=== PATIENT | female | born 1940 | race Caucasian/White ===

== ENCOUNTER → 2016-08-22 | Outpatient (CLI) | payer BC ==
[~2016-08-22] MED LIST: ASPI81TA28 PO; ATEN50TA8 PO; AZEL0.056 NAE; CALC-16 PO; CALC-338 PO; FEXO1TAB49 PO; GLUCTAB18 PO; LEVO100T PO; LEVO88TA PO; LIRA18IN SQ; METF-383 PO; METF500T5 PO; MULT-506 PO; SIMV20TA2 PO
[2016-08-22 11:21] LABS: ALT/SGPT 37 U/L (12-78); AST/SGOT 22 U/L (15-37); BLOOD UREA NITROGEN 16 mg/dl (7-18); BUN/CREATININE RATIO 16.6 (10-20); CARBON DIOXIDE 31 mmol/L (21-32); CHLORIDE 102 mmol/L (98-107); CHOLESTEROL 158 mg/dl (0-200); CREATININE 0.96 mg/dl (0.60-1.20); GLUCOSE 106 mg/dl (70-99); POTASSIUM 4.1 mmol/L (3.5-5.1); SODIUM 140 mmol/L (136-145); TRIGLYCERIDES 152 mg/dl (0-150); VERY LOW DENSITY LIPOPROT CALC 30 mg/dl
[2016-08-22 11:24] LABS: ESTIMATED AVERAGE GLUCOSE 134 mg/dl; HA1C FLAG Normal (Normal)
[2016-08-22 11:32] LABS: CHOLESTEROL/HDL RATIO 2.5; HDL CHOLESTEROL 63 mg/dl; LDL CHOLESTEROL CALCULATED 65 mg/dl
[2016-08-22 11:36] LABS: RATIO 6.2 mcg/mg (0-30.0)
[2016-08-22 11:44] LABS: CALCIUM 10.1 mg/dl (8.5-10.1)
== END | disposition home or self-care (01) ==
LOC: C.LABBC 08:40
PROVIDERS: ATTEND Internal Medicine
DX: E11.49 Type 2 diabetes mellitus with other diabetic neurological complication (principal); E78.00 Pure hypercholesterolemia, unspecified; I10 Essential (primary) hypertension; E03.9 Hypothyroidism, unspecified

== ENCOUNTER → 2016-10-09 | Outpatient (CLI) | payer BC ==
--- NOTE | 2016-10-09 15:18 | MAMMOGRAPHY REPORT ---
BILATERAL DIGITAL SCREENING MAMMOGRAM WITH CAD: 10/09/2016 CLINICAL HISTORY: Routine screening. Patient has no complaints. TECHNIQUE: Bilateral CC and MLO views were obtained. Current study was also evaluated with a Compute r Aided Detection (CAD) system. COMPARISON: Comparison is made to exams dated: 10/08/2015 mammogram, 10/06/2014 mammogram, 09/04/2013 ma mmogram, 09/10/2012 mammogram, 08/29/2012 mammogram, and 08/29/2011 mammogram - [facility]. BREAST COMPOSITION: The tissue of both breasts is heterogeneously dense, which may obscure small mas ses. FINDINGS: There are a few benign round calcifications in the breasts. Stable grouping of faint punct ate microcalcifications in the posterior left breast, along the posterior nipple line on the MLO view . No new suspicious mass, architectural distortion or cluster of microcalcifications is seen. IMPRESSION: ACR BI-RADS CATEGORY 1: NEGATIVE There is no mammographic evidence of malignancy. A 1 year screening mammogram is recommended. The pa tient will receive written notification of the results. Approximately 10% of breast cancers are not detected with mammography. A negative mammographic report should not delay biopsy if a clinically suggestive mass is present. Emma Broussard M.D. ay/:10/09/2016 13:32:11 External Relations Director: Kamala DOS SANTOS([place]erva)(Carter)([place]), [facility] letter sent: Normal 1/2 BI-RADS Code: ACR BI-RADS Category 1: Negative
== END | disposition home or self-care (01) ==
LOC: C.MAMM 10:30
PROVIDERS: ATTEND Obstetrics & Gynecology
DX: Z12.31 Encounter for screening mammogram for malignant neoplasm of breast (principal)

== ENCOUNTER 2016-11-24 14:19 | Emergency (ER) | payer BC ==
[~2016-11-24] VITALS: Ht 170.2 cm; Wt 82.0 kg
[~2016-11-24 14:19] MED LIST changes: -ASPI81TA28 PO; -AZEL0.056 NAE; -CALC-16 PO; -LEVO100T PO; -METF500T5 PO
[2016-11-24 14:24] VITALS: TEMP 36.7; Ht 170.2 cm; Wt 82.0 kg
--- NOTE | 2016-11-24 14:51 | EMERGENCY ROOM VISIT NOTE ---
ED Visit Note First contact with patient: 14:28 CHIEF COMPLAINT: Ankle pain HISTORY OF PRESENT ILLNESS: This 76-year-old female patient presents to the emergency department ambulatory after sustaining an injury to the left ankle with a twisting, inversion motion when she was walking through a parking lot and stepped in a hole, twisted her left ankle and fell onto her right knee. Complains of moderate swelling and pain. The patient complains of pain along the outside of the ankle. The patient does not have pain of the foot. The patient rates the pain as sharp and 8/10. There was no audible pop. The patient is not able to bear weight on the foot. Constant pain, worse with movement, weight bearing, and the dependent position. She has a superficial abrasion, swelling and tenderness to the right knee. There is no pain in the left knee. The patient is able to move their toes. No numbness or weakness of the foot, no laceration. The patient has not had a previous injury to this ankle. The patient has taken nothing for the pain. The patient denies any other injury. REVIEW OF SYSTEMS: A 6 system review of systems was completed with positives and pertinent negatives listed in the HPI. ALLERGIES: Magnesium salicylate, sulfites MEDICATIONS: See nursing notes PMH: Hypertension, hyperlipidemia, hypothyroidism, type 2 diabetes SOCIAL HISTORY: The patient lives locally. PHYSICAL EXAM: Vital Signs: Reviewed Nurse's notes, vital signs stable. GENERAL : This is a 76-year-old female, no acute distress, but appears in pain, well- developed, well-nourished. MENTAL STATUS: Alert, oriented to person place and time, and cooperative. MUSCULOSKELETAL: The left ankle is swollen and tender over the lateral malleolus, but the skin is intact and there is no ligamentous instability. There is no fifth metatarsal tenderness. There is no tenderness over the rest of the foot. There is no calf or tibia/fibular tenderness. There is no visual deformity. The foot and toes are warm and well-perfused. Dorsalis pedis pulse 2+. Sensation to pain and light touch is intact. Capillary refill less than 2 seconds. There is a superficial, nonbleeding abrasion, ecchymosis, tenderness and swelling to the right anterior knee. There is no obvious deformity. There is no obvious laxity. EMERGENCY DEPARTMENT COURSE: I examined the patient. X-rays of the left ankle and right knee were reviewed by myself and read by radiology and reveal avulsion fracture to the left distal fibula. A walking boot was applied to the ankle under my direction and the position was satisfactory. Neurovascular status was rechecked and intact. The patient will not tolerate crutches. We do not have any walker to give the patient. I did give her prescription. It was faxed to [facility]. She should contact orthopedics first thing Sunday morning for a follow-up appointment. She should return with worsening symptoms. The patient was discharged home in good condition. LEFT ANKLE 3 VIEWS HISTORY: fall, left ankle pain COMPARISON: None. FINDINGS: Tiny avulsion fracture at the distal tip of the lateral malleolus. No dislocation. Lateral soft tissue swelling. No radiopaque foreign bodies. IMPRESSION: Tiny avulsion fracture at the distal tip of the lateral malleolus. RIGHT KNEE 3 VIEWS CLINICAL HISTORY: 76 years-old Female presenting with fall, right knee pain Right. TECHNIQUE: Frontal, lateral, and sunrise views of the right knee were obtained. COMPARISON: None. FINDINGS: No acute fracture or malalignment. Degenerative changes of the medial and lateral compartments more pronounced than minimal degenerative change at the patellofemoral compartment. Degenerative changes include osteophytosis and chondrocalcinosis. There is likely mild joint space loss in both the medial and lateral compartments. No large effusion. IMPRESSION: No acute osseous injury of the right knee. Tricompartmental degenerative change. The patient was also seen and examined by who agrees with the assessment and treatment plan. Current/Historical Medications Scheduled Aspirin (Aspirin Ec), 81 MG PO DAILY Atenolol (Tenormin), 50 MG PO DAILY Azelastine HCl (Azelastine HCl), 2 SPRAYS KWAKU QPM Calcium Citrate-Vitamin D (Calcium Citrate+D), 1 TAB PO DAILY Glucosamine-Chondroitin (Osteo Bi-Flex Regular Str), 1 TAB PO DAILY Levothyroxine Sodium (Synthroid), 100 MCG PO DAILY Liraglutide (Victoza), 1.2 MG SQ QPM Metformin Hcl Er (Glucophage Er), 1,000 MG PO BID Multivitamin (Multivitamin), 1 TAB PO DAILY Simvastatin (Zocor), 20 MG PO QPM Scheduled PRN Fexofenadine Hcl (Diana Allergy), 180 MG PO DAILY PRN for ALLERGIES Allergies Coded Allergies: Prednisone (Verified Allergy, Severe, ITCHY, RED, 11/24/16) Sulfites (Verified Allergy, Severe, RASH/REDDENED/THROAT CLOSES, 11/18/13) Codeine (Verified Allergy, Unknown, RASH, 11/24/16) Magnesium Salicylate (Unverified Allergy, Unknown, UNKNOWN, 11/18/13) POLLEN (Unverified Allergy, Unknown, SEASONAL ALLERGIES, 11/18/13) Uncoded Allergies: TREES (Allergy, Unknown, SEASONAL ALLERGIES, 11/17/13) WEEDS (Allergy, Unknown, SEASONAL ALLERGIES, 11/17/13) Vital Signs Date Time Temp Pulse Resp B/P (MAP) Pulse Ox O2 Delivery O2 Flow Rate FiO2 11/24/16 16:30 78 18 158/82 93 11/24/16 14:24 36.7 86 18 154/82 95 Room Air Departure Information Impression Primary Impression: Fracture of distal end of left fibula Additional Impression: Knee contusion Dispostion Home / Self-Care Condition GOOD Referrals Pro,Aneesh Brownlee M.D. (PCP) Teddy Ramos, DO Patient Instructions Ankle Fx, My [facility] [employer] Additional Instructions Wear the walking boot until seen by orthopedics Get the walker at the medical supply store and use to assist in ambulation Contact orthopedics first thing Sunday morning to schedule a follow-up appointment for further evaluation and management Return with any worsening symptoms Problem Qualifiers Primary Impression: Fracture of distal end of left fibula Encounter type: initial encounter Fracture type: closed Fracture morphology : other fracture Qualified Codes: S82.832A - Other fracture of upper and lower end of left fibula, initial encounter for closed fracture Additional Impression: Knee contusion Encounter type: initial encounter Laterality: right Qualified Codes: S80.01XA - Contusion of right knee, initial encounter
--- NOTE | 2016-11-24 15:10 | DIAGNOSTIC IMAGING REPORT ---
LEFT ANKLE 3 VIEWS HISTORY: fall, left ankle pain COMPARISON: None. FINDINGS: Tiny avulsion fracture at the distal tip of the lateral malleolus. No dislocation. Lateral soft tissue swelling. No radiopaque foreign bodies. IMPRESSION: Tiny avulsion fracture at the distal tip of the lateral malleolus. Electronically signed by: Tye Valdes M.D. 11/24/2016 3:09 PM Dictated Date/Time: 11/24/2016 3:08 PM
--- NOTE | 2016-11-24 15:15 | DIAGNOSTIC IMAGING REPORT ---
RIGHT KNEE 3 VIEWS CLINICAL HISTORY: 76 years-old Female presenting with fall, right knee pain Right. TECHNIQUE: Frontal, lateral, and sunrise views of the right knee were obtained. COMPARISON: None. FINDINGS: No acute fracture or malalignment. Degenerative changes of the medial and lateral compartments more pronounced than minimal degenerative change at the patellofemoral compartment. Degenerative changes include osteophytosis and chondrocalcinosis. There is likely mild joint space loss in both the medial and lateral compartments. No large effusion. IMPRESSION: No acute osseous injury of the right knee. Tricompartmental degenerative change. Electronically signed by: Osei Bowens M.D. 11/24/2016 3:14 PM Dictated Date/Time: 11/24/2016 3:12 PM
[2016-11-24] MEDS ORDERED: CALC-16 PO (15:23)
[2016-11-24] MEDS ORDERED: METF500T5 PO (15:23)
[2016-11-24] MEDS ORDERED: ASPI81TA28 PO (15:23)
[2016-11-24] MEDS ORDERED: LEVO100T PO (15:23)
[2016-11-24] MEDS ORDERED: AZEL0.056 NAE (15:23)
--- NOTE | 2016-11-24 16:25 | EMERGENCY ROOM VISIT NOTE ---
ED Visit Note First contact with patient: 14:28 HPI: Mechanical fall with left ankle and right knee pain. PE: AFVSS, NAD NC/AT RRR, no murmurs CTAB Ext: left ateral mal, swelling, ttp. right knee with minor abrasion and contusion. FROM intact. distal PMS intact. Neuro: grossly intact Plan: Xray knee negative. Xray left ankle with Tiny avulsion fracture at the distal tip of the lateral malleolus. Plan boot. Ortho f/u. I reviewed the patient's past medical history, medications, and visit nursing notes. I discussed the case with the physician neurology physician assistant, examined the patient, and agree with the findings and plan as documented in the physician assistants note.
[2016-11-24 16:30] VITALS: BP 158/82; PULSE 78; O2SAT 93
== END 2016-11-24 16:31 | disposition home or self-care (01) ==
LOC: C.EDB 14:21 → C.EDD 16:31
DX: S82.62XA Displaced fracture of lateral malleolus of left fibula, initial encounter for closed fracture (principal); S80.01XA Contusion of right knee, initial encounter; W01.0XXA Fall on same level from slipping, tripping and stumbling without subsequent striking against object, initial encounter; Y92.481 Parking lot as the place of occurrence of the external cause; S80.211A Abrasion, right knee, initial encounter; I10 Essential (primary) hypertension; E78.5 Hyperlipidemia, unspecified; E03.9 Hypothyroidism, unspecified; E11.9 Type 2 diabetes mellitus without complications; Z79.82 Long term (current) use of aspirin; Z79.84 Long term (current) use of oral hypoglycemic drugs

== ENCOUNTER → 2016-12-18 | Outpatient (CLI) | payer BC ==
[~2016-12-18] MED LIST changes: +ASPI81TA28 PO; +AZEL0.056 NAE; +CALC-16 PO; -CALC-338 PO; +LEVO100T PO; -LEVO88TA PO; -METF-383 PO; +METF500T5 PO
--- NOTE | 2016-12-18 16:03 | DIAGNOSTIC IMAGING REPORT ---
LEFT ANKLE 3 VIEWS HISTORY: FRACTURED FIBULA COMPARISON: Left ankle 11/24/2016. FINDINGS: No change in the tiny avulsion fracture at the distal tip of the left fibula. There is diffuse soft tissue swelling which is slightly improved. No dislocation. The distal tibia is intact. Small plantar and posterior calcaneal spurs. No radiopaque foreign bodies. IMPRESSION: No change in the tiny avulsion fracture at the distal tip of the left fibula. Electronically signed by: Tye Valdes M.D. 12/18/2016 4:02 PM Dictated Date/Time: 12/18/2016 4:00 PM
== END | disposition home or self-care (01) ==
LOC: C.RAD1850 15:31
PROVIDERS: ATTEND Internal Medicine
DX: S82.832A Other fracture of upper and lower end of left fibula, initial encounter for closed fracture (principal); X58.XXXA Exposure to other specified factors, initial encounter

== ENCOUNTER → 2017-02-14 | Outpatient (CLI) | payer BC ==
[2017-02-14 11:29] LABS: ALT/SGPT 37 U/L (12-78); AST/SGOT 22 U/L (15-37); BLOOD UREA NITROGEN 13 mg/dl (7-18); BUN/CREATININE RATIO 15.3 (10-20); CALCIUM 9.6 mg/dl (8.5-10.1); CARBON DIOXIDE 30 mmol/L (21-32); CHLORIDE 103 mmol/L (98-107); CREATININE 0.83 mg/dl (0.60-1.20); ESTIMATED AVERAGE GLUCOSE 137 mg/dl; GLUCOSE 103 mg/dl (70-99); HA1C FLAG Normal (Normal); POTASSIUM 3.8 mmol/L (3.5-5.1); SODIUM 138 mmol/L (136-145)
[2017-02-14 11:40] LABS: CHOLESTEROL 150 mg/dl (0-200); CHOLESTEROL/HDL RATIO 2.5; HDL CHOLESTEROL 60 mg/dl; LDL CHOLESTEROL CALCULATED 47 mg/dl; TRIGLYCERIDES 217 mg/dl (0-150); VERY LOW DENSITY LIPOPROT CALC 43 mg/dl
== END | disposition home or self-care (01) ==
LOC: C.LABBC 08:12
PROVIDERS: ATTEND Internal Medicine
DX: E78.00 Pure hypercholesterolemia, unspecified (principal); E03.9 Hypothyroidism, unspecified; E11.9 Type 2 diabetes mellitus without complications

== ENCOUNTER → 2017-02-27 | Outpatient (CLI) | payer BC | END | disposition home or self-care (01) | LOC: C.MAMM 08:37 | PROVIDERS: ATTEND Internal Medicine | DX: M50.30 Other cervical disc degeneration, unspecified cervical region (principal); S82.409A Unspecified fracture of shaft of unspecified fibula, initial encounter for closed fracture; X58.XXXA Exposure to other specified factors, initial encounter ==

== ENCOUNTER → 2017-08-14 | Outpatient (CLI) | payer BC ==
[~2017-08-14] VITALS: Ht 167.6 cm; Wt 86.4 kg
[2017-08-14 12:56] VITALS: BP 144/81; PULSE 84; Ht 167.6 cm; Wt 86.4 kg
== END | disposition home or self-care (01) ==
LOC: C.NEUR 11:57
PROVIDERS: ATTEND Internal Medicine Pulmonary Disease
DX: R06.83 Snoring (principal); R53.83 Other fatigue; G47.00 Insomnia, unspecified; M25.551 Pain in right hip; R20.8 Other disturbances of skin sensation; J30.1 Allergic rhinitis due to pollen

== ENCOUNTER → 2017-08-17 | Outpatient (CLI) | payer BC ==
[2017-08-17 10:50] LABS: ALT/SGPT 55 U/L (12-78); AST/SGOT 40 U/L (15-37); BLOOD UREA NITROGEN 15 mg/dl (7-18); CARBON DIOXIDE 29 mmol/L (21-32); CHOLESTEROL 225 mg/dl (0-200); CREATININE 0.98 mg/dl (0.60-1.20); GLUCOSE 97 mg/dl (70-99); POTASSIUM 3.9 mmol/L (3.5-5.1); SODIUM 138 mmol/L (136-145)
[2017-08-17 10:59] LABS: CREATININE RANDOM URINE 63.9 mg/dl
[2017-08-17 11:00] LABS: LDL CHOLESTEROL CALCULATED 119 mg/dl
[2017-08-17 11:47] LABS: HEMOGLOBIN A1C 6.4 % (4.5-5.6)
== END | disposition home or self-care (01) ==
LOC: C.LABBC 08:07
PROVIDERS: ATTEND Internal Medicine
DX: E11.49 Type 2 diabetes mellitus with other diabetic neurological complication (principal); E03.9 Hypothyroidism, unspecified; E78.00 Pure hypercholesterolemia, unspecified

== ENCOUNTER → 2017-08-28 | Outpatient (CLI) | payer BC ==
--- NOTE | 2017-08-29 05:46 | PAP/PSG TECHNICIAN REPORT ---
[facility] [employer] Polysomnogram Report Study name: None Report date: 08/29/2017 Study date: 08/28/2017 Referring Physician: Fran Van M.D. Name: MALLORIE JOIE LUKE Interpreting Physician: Fran Van M.D. Date of : 1940 [employer] Driver: MEKA Rosas. Sex: Female Age: 77 StudyType: PSG Weight: 182 lbs Height: 77 years, Height 5' 7" Neck Circum:15.5inches BMI: 28.5 Medications: ASA 81mg, Atenolol 50mg, Citracal, Colchicine 0.6mg, Levothyroxine 125mcg, Metformin 500mg, Multi Vitamin, Simvastatin 20mg, Victoza 18mg/3ml Patient History Study started on room air with no ETCO2 monitoring in room #6. 77 yr old female here tonight for a diagnostic psg. She complains of EDS, snoring ,leg pain and fragmented sleep. She wakes every two hours to use the restroom. ESS=17/24. Neck circ=15.5inches. Parameters Monitored NPSG: E1-M2, E2-M1, Fp1-M2, Fp2-M1, F3-M2, F4-M2, F4-M1, C3-M2, C4-M2, C4-M1, O1-M2, O2-M2, O2-M1, T3-M2, T4-M1, P3-M2, P4-M1, CHIN1, CHIN2, HR, EKG, Legs, PFLOW, SNOR, FLOW, CFLOW, Tidal Volume, THOR, ABDO, SpO2, PLTH, CPRESS, ETCO2 Wave, ETCO2, pH Sleep Architecture Sleep Stages Time at Lights Off 9:41:45 PM STAGES Time (min.) TST (%) Time at Lights On 5:15:15 AM Wake 290.5 -- Total Recording Time (TRT) 453.50 min. N1 61.0 37 Total Sleep Period (TSP) 445.0 min. N2 48.0 29 Total Sleep Time (TST) 163.0min. N3 54.0 33 Awake Time 290.5 min. REM 0.0 0 Wake after Sleep Onset 283.5 min. Sleep Efficiency (SE) 36 % Sleep Onset Latency (BEBETO) 7.0 min. Number of Stage 1 Shifts None Awakenings 114 Stage Changes 275 Number of REM periods N/A REM 0.0 0 REM Latency NONE min. NREM 163.0 100 Body Position Analysis Supine Right Left Side Prone Vertical Total Sleep Time (min.) 287.5 15.5 30.5 46.03 0.0 0.0 Total Sleep Time (%) 72% 10% 19% 28 0% N/A% Total Sleep Time REM (min.) 0.0 0.0 0.0 None 0.0 0.0 Total Sleep Time NREM (min.) 117.0 15.5 30.5 None 0.0 0.0 Intermittent Wake (min.) 170.5 77.4 42.5 None 0.0 0.0 Total Sleep Period (%) 63% None None None None None Arousals Myoclonus (PLM) * Events Count Index Events Count Index Spontaneous 26 10 Events Awake (PLMW) 608 125.6 Respiratory 68 36.1 Events Asleep w/ Arousal (PLMA) 2 0.7 PLM 2 1 Events Asleep w/o Arousal (PLMS) 100 36.8 Snoring 0 0 Total Asleep 102 37.5 Total 96 35 Total 710 94 Respiratory Analysis * CA OA MA CH H RERA Total Count 75 6 2 0 41 0 124 Index 27.6 2.2 0.7 0 15.1 0 45.6 Mean Duration 23.5 26.1 10.9 0.00 25.8 0.0 24.2 Longest Duration 35.9 31.6 21.5 0.00 21.5 0.0 51.6 Respiratory Event Summary Total Supine ~Supine Right Left Prone REM NREM Apneas Count 83 59 24 14 10 N/A N/A 83 Index 30.6 30 31 54.1 19.7 N/A N/A 31 Hypopneas (4% Desat) Count 41 33 8 5 3 N/A N/A 41 Index 15.1 16.9 10 19.3 5.9 N/A N/A 15.1 Apneas & All Hypopneas Count 124 92 32 19 13 N/A N/A 124 Index 45.6 47 42 73 26 N/A N/A 45.6 Respiratory Events (Quality Specialist+All Hyp+RERA) Count 124 92 32 19 13 N/A N/A 124 Index 45.6 47 42 73.5 25.6 N/A N/A 45.6 Respiratory Related Arousal Count 68 92 23 14 9 N/A N/A 98 Index 36.1 38 30 54 18 N/A N/A 36 Snoring Analysis Supine Right Left Prone REM NREM Total Snore duration 0.5 min Snores count 7 3 2 N/A N/A 12 12 Snore mean duration 2.4 Sec Snores index 4 12 4 N/A N/A 4.4 4.4 TST with snoring (%) 0.3% Desaturation Event Summary: Minimum %SpO2 Event Count Mean/Min/Max Duration(sec.) Desaturation Index % Time In Bed > 90 251 29.2 / 8.5 / 60.0 63.4 53.6 86 - 90 73 24.6 / 8.5 / 40.3 30.2 32.7 81 - 85 1 14.3 / 14.3 / 14.3 1.1 12.4 76 - 80 0 N/A 0.0 1.3 71 - 75 0 N/A 0.0 0.0 66 - 70 0 N/A 0.0 0.0 61 - 65 0 N/A 0.0 0.0 56 - 60 0 N/A 0.0 0.0 51 - 55 0 N/A 0.0 0.0 < 50 0 N/A 0.0 0.0 Total REM NREM Awake <50% 0.0 min. 0.0 min. 0.0 min. 0.0 min. 51 - 60% 0.0 min. 0.0 min. 0.0 min. 0.0 min. 61 - 70% 0.0 min. 0.0 min. 0.0 min. 0.0 min. 71 - 80% 6.0 min. 0.0 min. 1.9 min. 4.1 min. 81 - 90% 199.9 min. 0.0 min. 110.7 min. 89.2 min. 91 - 100% 237.5 min. 0.0 min. 50.4 min. 187.0 min. Average 90 0 89 91 Minimum SpO2 78 N/A 78 78 Desaturation Event Index 36.8 0.0 52.6 30.4 # Desat. Events below 89% 252 N/A 134 118 Time(%) with Saturation below 89% 32.1 0.0 17.8 14.4 Time(min.) with Saturation below 89% 142.5 0.0 78.8 63.7 Time (mins) REM (mins) NREM (mins) % of TST SpO2 Below 90% 136 N/A N136 58.3 SpO2 Below 88% 47 0 0 42 Heart Rate Analysis Min (bpm) Max (bpm) Average (bpm) Awake 39 127 73 NREM 57 85 71 REM N/A N/A N/A Overall 57 85 71 Supplemental O2 Values Minimum O2 level: None Value Start Time End Time [employer] Comments Mr. Cole slept in the right, left and supine positions. No cardiac arrhythmia noted. Some leg movements were noted. No bruxism noted. Snoring was noted and scored as a 1 on a scale of 1 through 5. (0=no snoring, 5=snoring loud enough to be heard through a closed door or down the gunn way) She awoke to use the restroom 1 time during the night. She stated that this was a normal night for her. The final report will be interpreted and signed by a sleep physician. The completed physician report will then be placed in the patient medical record. Therapy (cm H2O) 0 TIB (min.) 453.5 TST (min.) 163.0 Sleep Onset (min.) 7.0 REM Onset From Sleep (min.) NONE Sleep Efficiency % 36 Wakefulness (%) 64 Wakefulness (min.) 290.5 NREM 1 (%) 37 NREM 1 (min.) 61.0 NREM 2 (%) 29 NREM 2 (min.) 48.0 NREM 3 (%) 33 NREM 3 (min.) 54.0 REM (%) 0 REM (min.) 0.0 # Arousals 96 Arousal Index 35 # Snore 12 Snore Index 4.4 AHI 45.6 AHI Supine 47 AHI Non-Supine 42 NREM AHI 45.6 REM AHI N/A RDI 45.6 # Obstructive Apnea 6 # Central Apnea 75 # Mixed Apnea 2 # Hypopneas 41 RERAs 0 Total Respiratory Events 160 Time Below SpO2 89% (min.) 78.8 Mean NREM SpO2 (%) 89 Mean REM SpO2 (%) N/A Mean Sleep SpO2 (%) 89 Min NREM SpO2 (%) 78 Min REM SpO2 (%) N/A Position Supine (min.) 287.5 Position Non-supine (min.) 46.0 LM Index Sleep 37.5 LM Index NREM 37.5 LM Index REM N/A Mean Heart Rate (bpm) 71 Min Heart Rate (bpm) 57
--- NOTE | 2017-08-31 07:56 | POLYSOMNOGRAPH REPORT ---
CLINICAL DATA: A 77-year-old female with BMI of 28.5 with complaints of excessive daytime sleepiness, snoring, leg pain, and fragmented sleep. She wakes every 2 hours at night. Her [place] sleepiness score is 17/24. SLEEP ARCHITECTURE: Total sleep period was 445 minutes. Total sleep time was 163 minutes, all non-REM sleep. Sleep latency was 7 minutes. REM was not achieved. Sleep efficiency was severely reduced at 36%. Wake after sleep onset was markedly elevated at 283.5 minutes. Sleep consisted of stage N1 37%, stage N2 29%, and stage N3 33%. AROUSAL DATA: 96 arousals were recorded for an index of 35 per hour. 68 were due to respiratory events. PLM DATA: 102 limb movements during sleep were noted for an index of 37.5 per hour with arousal index of 0.7 per hour. RESPIRATORY DATA: Severe sleep apnea was documented. The AHI was 45.6. There were 75 central, 6 obstructive, and 2 mixed apneic episodes. The longest apneic episode was 35.9 seconds. There were 41 hypopneic episodes. The mean duration of hypopnea was 25.8 seconds. OXIMETRY DATA: Nocturnal hypoxemia was seen. Oxygen [place] was 78% during non-REM sleep. Mean saturation was 98%. Time below 88% was 47 minutes. EKG: Heart rates ranged from 57-85 beats per minute. No arrhythmias noted. CHAUFFEUR MOTORBUS'S COMMENTS: The patient slept in the right, left, and supine position. Snoring was mild, rated 1 on a scale of 1-5. IMPRESSION: Severe sleep apnea/hypopnea with a very fragmented sleep architecture. The majority of the patient's episodes were central in nature. RECOMMENDATIONS: The patient will be seen back in followup to discuss options for treatment. A trial of ASV may be needed with her central apneic episodes. [facility]
== END | disposition home or self-care (01) ==
LOC: C.NEUR 20:00
PROVIDERS: ATTEND Internal Medicine Pulmonary Disease
DX: R20.8 Other disturbances of skin sensation (principal); R53.83 Other fatigue; M25.511 Pain in right shoulder; G47.00 Insomnia, unspecified; R06.83 Snoring

== ENCOUNTER 2024-08-15 10:15 | Inpatient (IN) ==
[2024-08-15 10:53] LABS: Basophils # (auto) 0.06 K/uL (0.00-0.20); Basophils % (auto) 0.8 %; Eosinophils # (auto) 0.24 K/uL (0.00-0.50); Eosinophils % (auto) 3.3 %; Hematocrit (blood only) 40.7 % (37.0-47.0); Hemoglobin 13.9 g/dl (12.0-16.0); Immature Granulocytes # (auto) 0.01 K/uL (0.01-0.20); Immature Granulocytes % (auto) 0.1 %; Lymphocytes # (auto) 2.77 K/uL (1.20-3.40); Lymphocytes % (auto) 38.6 %; Mean Corpuscular Hemoglobin 28.8 pg (25.0-34.0); Mean Corpuscular Hgb Conc 34.2 g/dL (32.0-36.0); Mean Corpuscular Volume 84.4 fL (80.0-100.0); Mean Platelet Volume 9.6 fL (9.4-12.4); Monocytes # (auto) 0.46 K/uL (0.11-0.59); Monocytes % (auto) 6.4 %; Neutrophils # (auto) 3.64 K/uL (1.40-6.50); Neutrophils % (auto) 50.8 %; Platelet Count 218 K/uL (130-400); RDW Coefficient of Variation 12.8 % (11.5-14.5); RDW Standard Deviation 38.8 fL (36.4-46.3); Red Blood Count 4.82 M/uL (4.20-5.40); White Blood Count 7.18 K/ul (4.8-10.8)
[2024-08-15 11:12] LABS: Albumin Globulin Ratio 1.3 (0.9-2); Albumin Level 4.3 gm/dl (3.4-5.0); BUN Creatinine Ratio 11.6 (10-20); Bilirubin,Total 0.5 mg/dl (0.2-1.0); Calcium 9.6 mg/dl (8.6-10.3); Globulin 3.3 gm/dl (2.5-4.0); Magnesium 1.8 mg/dl (1.7-2.4); Total Protein 7.6 gm/dl (6.0-8.3)
[2024-08-15 11:18] LABS: Troponin I High Sensitivity 4.4 pg/ml (0-14)
[2024-08-15 11:24] LABS: Partial Thromboplastin Time 26 Seconds (21-31); Prothrombin Time 10.9 Seconds (9.0-12.0)
--- NOTE | 2024-08-15 11:26 | XRay Report ---
XR chest 1V portable CLINICAL HISTORY: weak, duncan COMPARISON STUDY: 10/30/2017 FINDINGS: There is increased cardiomegaly with mild pulmonary vascular congestion. Inspiration is sha llow. There is interval mild stranding at the left base. No pleural effusion or pneumothorax. IMPRESSION: 1. Mild CHF. 2. Atelectasis versus early pneumonia left lung base. ACT 112: Negative or not required by law. Electronically signed by: Maged Parikh M.D. 08/15/2024 11:24 AM
[2024-08-15 11:27] LABS: Thyroid Stimulating Hormone 5.72 uIu/ml (0.300-4.500)
--- NOTE | 2024-08-15 11:55 | Emergency Department Note ---
ED DC CONDITION Conditon at Discharge Condition at Discharge: Serious Impression & Plan CHB (complete heart block) ED Provider Note Provider: Rodrigo Sorenson MD CHIEF COMPLAINT: Weakness, low heart rate HISTORY OF PRESENT ILLNESS: Patient is a 83-year-old female past medical history of type 2 diabetes, hypothyroidism, hypertension presenting here today from home. States she has been well recently. This morning went to have breakfast and when training up from breakfast felt very dizzy and lightheaded but did not syncopized or fall. Sat back down. Noted her heart rate to be quite low in the 30s. Denies a history of similar. Took her Synthroid this morning but not her other medications. She is normally on atenolol. Denies recent cough or cold. Denies any active chest pain or any pain earlier today. Denies feeling significantly short of breath or having abdominal pain or nausea. May be just a little bit weak at the moment but again she is just lying here. Patient denies significant cardiac history but did have cardiac testing here several years ago. PAST MEDICAL HISTORY: As noted above MEDICATIONS: Reviewed home medications SOCIAL HISTORY: PHYSICAL EXAM: GENERAL: alert and oriented in no acute distress on stretcher Head: normocephalic and atraumatic EYES: No injection, discharge or icterus. EOMI. NECK: Trachea midline. Supple. ENT: Mucous membranes pink and moist. LUNGS: Airway patent. No retractions. Breath sounds clear HEART: Regular bradycardic rate and rhythm. No chest wall tenderness ABDOMEN: Soft and non-tender, without guarding or rebound. SKIN: Acyanotic, warm, dry, without rashes EXTREMITIES: Without swelling, tenderness or deformity NEUROLOGICAL: No focal deficits. No aphasia. No facial droop or slurred speech. EK bpm what appears to be a complete heart block. No ST segment elevation or depression or bundle branch block and QRS duration of 126. QTc 386. CONTINUOUS CARDIAC MONITORING: was ordered and showed a heart rate of 30s-40s bpm in complete heart block Patient's laboratory studies and imaging reviewed. Differential includes Infection, dehydration, metabolic abnormality, hypo/hyperglycemia, electrolyte disturbance, anemia, hypoxia, cardiac sources, intracerebral event, toxicologic, neurologic, as well as other pathologies. IMPRESSION/MEDICAL DECISION MAKING: Patient appears to be in complete heart block. She does however this time. Seem to be fairly stable and without significant symptoms while in bed here. Not hypotensive. Blood work sent without severe findings such as anemia, leukocytosis, electrolyte abnormality, troponin elevation. No evidence of ST segment elevation she denies any chest pain. Not hypoxic or medically short of breath and I do not believe she is suffering from a PE. Lyme screen is negative. Did not take her beta-amaury today and we will hold off on that given her heart block. Unsure exactly why she is experiencing complete heart block at this time. Discussed with Merle Farmer cardiology and the hospitalist will bring in here for further care and monitoring. As she stable, cardiac defibrillation pads are in place but I discussed with cardiology will hold off on other meds at this time. Patient and updated. DIAGNOSIS: Complete heart block DISPOSITION: Hospitalist will evaluate Patient was agreeable with this plan. Critical Care I have personally spent 32 minutes of critical care time in the direct management of this patient. This includes bedside care, interpretation of diagnostic studies, and testing, discussion with consultants, patient, and family members, and other required patient management activities. These 32 minutes is in excess of all separately billable procedures. Past Med/Surg History Problem List (Updated 08/15/24 @ 12:58 by Background Damiky) CHB (complete heart block) (Acute) Mild persistent asthma, uncomplicated Right hip pain Dyspareunia, female Elevated vitamin B12 level Diabetes mellitus type 2, uncontrolled Ankle pain Asthma inhalers daily/prn Degenerative cervical disc Gout Allergic rhinitis Nocturnal hypoxemia Reactive airway disease Complex sleep apnea syndrome Essential hypertension (Acute) Hypercholesterolemia (Acute) Hypothyroidism (Acute) Tachycardia (Acute) follows with Dr. Solorio Type 2 diabetes mellitus (Acute) Medical History (Updated 08/15/24 @ 12:58 by Background Daemon) Fracture of distal end of left fibula Surgical History History of colonoscopy with polypectomy (~2013) History of tooth extraction History of wisdom tooth extraction History of bilateral cataract extraction S/P dilation and curettage S/P appendectomy Family History Son Asthma Grandmother (Maternal) Breast cancer No family history of adverse response to anesthesia Aunt Breast cancer Mother Heart disease Family history of diabetes mellitus Father Liver cancer Kidney malignancy Grandmother (Paternal) No family history of adverse response to anesthesia Grandfather (Maternal) Myocardial infarction Denies family history of Ovarian cancer Prostate cancer Colorectal cancer Social History Smoking Status: Never smoker Second Hand Exposure: Yes (father smoked); Do You Dip or Chew Tobacco: No; Hx Alcohol Use: No Hx Substance Use: No Preferred Language: Mauritian Communication Ability: Effective Visual Impairment: No Limitations Hearing Ability: Normal Tobacco Wrapping Machine Tender Required: No Beliefs That Will Affect Care: None marital status: Current Living Situation: Spouse current occupational status: retired Feels Safe at Home: Yes Childhood Exposure to Second-Hand Smoke: Yes Dental Care, Regularly: Yes Physical Activity Frequency: Daily Seatbelt Use: always Sunscreen Use: Yes Assistive Devices: Cane Allergies Allergies Allergy/AdvReac Type Severity Reaction Status Date / Time prednisone Allergy Severe ITCHY, RED Verified 01/28/24 10:54 sulfite Allergy Severe RASH/REDDENED/THROAT Verified 01/28/24 10:54 CLOSES codeine Allergy Mild RASH Verified 01/28/24 10:54 monosodium glutamate Allergy Mild itchy, rash Verified 01/28/24 10:54 pollen extracts Allergy Unknown SEASONAL Verified 01/28/24 10:54 ALLERGIES TREES Allergy Unknown SEASONAL Uncoded 01/28/24 10:54 ALLERGIES WEEDS Allergy Unknown SEASONAL Uncoded 01/28/24 10:54 ALLERGIES Home Meds Home Medications Medication Instructions Recorded Confirmed calcium 315 mg (as 1 tab PO QAM 10/29/18 08/15/24 citrate)-vitamin D3 6.25 mcg (250 unit) tablet (Citracal + Vitamin D Maximum) carboxymethylcellulose sodium 0.25 2 drops ophthalmic (eye) DAILY PRN 10/29/18 08/15/24 % eye drops Dry Eye(S) fluticasone propionate 50 1 spray intranasal QPM 10/29/18 08/15/24 mcg/actuation nasal spray,suspension glucosamine-chondroitin 250 mg-200 2 tab PO QAM 10/29/18 08/15/24 mg tablet multivitamin (Daily Multi-Vitamin 1 tab PO QPM 10/29/18 08/15/24 tablet) aspirin 81 mg tablet,delayed 81 mg PO HS 02/18/19 08/15/24 release cyanocobalamin (vitamin B-12) 1,000 mcg PO QAM 02/18/19 08/15/24 1,000 mcg tablet (Vitamin B-12) budesonide-formoterol HFA 80 2 inh inhalation BID PRN sob 08/15/24 08/15/24 mcg-4.5 mcg/actuation aerosol inhaler candesartan 16 mg tablet 16 mg PO DAILY 08/15/24 08/15/24 glucagon 1 mg solution for 1 mg subcut DIRECTED PRN 08/15/24 08/15/24 injection (Glucagon Emergency Kit) Hypoglycemia levothyroxine 150 mcg tablet 100 mcg PO DAILY 08/15/24 08/15/24 semaglutide 2 mg/dose (8 mg/3 mL) 2 mg subcut WK 08/15/24 08/15/24 subcutaneous pen injector (Ozempic) Previous Rx's Medication Instructions Recorded colchicine 0.6 mg tablet 0.6 mg PO BID PRN gout flare up 09/22/22 #90 tabs atenolol 50 mg tablet 50 mg PO QAM #90 tabs 02/27/23 simvastatin 20 mg tablet 20 mg PO QPM #90 tabs 02/27/23 albuterol sulfate 90 mcg/actuation 2 puff inhalation Q4H PRN 08/15/23 aerosol inhaler (ProAir HFA) shortness of breath or wheezing #1 inhaler montelukast 10 mg tablet 10 mg PO HS #100 tabs 08/15/23 Results & Data (ED) Vital Signs Vital Signs - 24 hr 08/15/24 10:27 08/15/24 10:33 08/15/24 10:42 Temperature 36.6 C Temperature Source Oral Pulse Rate 40 L 40 L 39 L Pulse Rate from SpO2 Sensor 40 L 39 L Pulse Rhythm Regular Pulse Strength Normal Respiratory Rate 18 12 10 L Respiratory Effort / Characteristics Non-Labored Spontaneous Respiratory Depth Normal Respiratory Pattern Regular Blood Pressure 134/72 Blood Pressure Mean 92 Blood Pressure Position Sitting Pulse Oximetry 98 96 97 Oxygen Delivery Method Room Air Sepsis Recent Fever Within 48 Hours No Sepsis New/Unexplained Change in Mental Status No Sepsis Action Taken by Nursing No Action Required 08/15/24 10:51 08/15/24 11:02 08/15/24 11:03 Temperature Temperature Source Pulse Rate 38 L 39 L Pulse Rate from SpO2 Sensor 38 L Pulse Rhythm Pulse Strength Respiratory Rate 11 L 19 Respiratory Effort / Characteristics Respiratory Depth Respiratory Pattern Blood Pressure Blood Pressure Mean Blood Pressure Position Pulse Oximetry 95 Oxygen Delivery Method Sepsis Recent Fever Within 48 Hours Sepsis New/Unexplained Change in Mental Status Sepsis Action Taken by Nursing 08/15/24 11:12 08/15/24 11:21 08/15/24 11:30 Temperature Temperature Source Pulse Rate 46 L 38 L Pulse Rate from SpO2 Sensor 38 L 38 L Pulse Rhythm Pulse Strength Respiratory Rate 22 17 Respiratory Effort / Characteristics Respiratory Depth Respiratory Pattern Blood Pressure 117/60 Blood Pressure Mean 66 Blood Pressure Position Pulse Oximetry 95 96 Oxygen Delivery Method Sepsis Recent Fever Within 48 Hours Sepsis New/Unexplained Change in Mental Status Sepsis Action Taken by Nursing 08/15/24 11:30 08/15/24 11:30 08/15/24 11:33 Temperature Temperature Source Pulse Rate 44 L Pulse Rate from SpO2 Sensor 39 L Pulse Rhythm Pulse Strength Respiratory Rate 16 Respiratory Effort / Characteristics Respiratory Depth Respiratory Pattern Blood Pressure 117/60 117/60 117/60 Blood Pressure Mean 66 66 79 Blood Pressure Position Pulse Oximetry 96 Oxygen Delivery Method Sepsis Recent Fever Within 48 Hours Sepsis New/Unexplained Change in Mental Status Sepsis Action Taken by Nursing 08/15/24 11:38 08/15/24 12:00 08/15/24 12:00 Temperature Temperature Source Pulse Rate Pulse Rate from SpO2 Sensor Pulse Rhythm Pulse Strength Respiratory Rate Respiratory Effort / Characteristics Respiratory Depth Respiratory Pattern Blood Pressure 123/69 123/69 Blood Pressure Mean 91 91 Blood Pressure Position Pulse Oximetry Oxygen Delivery Method Room Air Sepsis Recent Fever Within 48 Hours Sepsis New/Unexplained Change in Mental Status Sepsis Action Taken by Nursing 08/15/24 12:06 08/15/24 12:12 08/15/24 12:15 Temperature Temperature Source Pulse Rate 38 L 37 L 47 L Pulse Rate from SpO2 Sensor 38 L 37 L 37 L Pulse Rhythm Pulse Strength Respiratory Rate 17 14 12 Respiratory Effort / Characteristics Respiratory Depth Respiratory Pattern Blood Pressure Blood Pressure Mean Blood Pressure Position Pulse Oximetry 97 97 97 Oxygen Delivery Method Sepsis Recent Fever Within 48 Hours Sepsis New/Unexplained Change in Mental Status Sepsis Action Taken by Nursing 08/15/24 12:31 08/15/24 12:31 08/15/24 12:39 Temperature Temperature Source Pulse Rate 37 L Pulse Rate from SpO2 Sensor 37 L Pulse Rhythm Pulse Strength Respiratory Rate 11 L Respiratory Effort / Characteristics Respiratory Depth Respiratory Pattern Blood Pressure 145/73 H 145/73 H Blood Pressure Mean 99 99 Blood Pressure Position Pulse Oximetry 97 Oxygen Delivery Method Sepsis Recent Fever Within 48 Hours Sepsis New/Unexplained Change in Mental Status Sepsis Action Taken by Nursing Laboratory Data 08/15/24 10:38 08/15/24 10:38 Lab Results 08/15/24 Range/Units 10:38 WBC 7.18 (4.8-10.8) K/ul RBC 4.82 (4.20-5.40) M/uL Hgb 13.9 (12.0-16.0) g/dl Hct 40.7 (37.0-47.0) % MCV 84.4 (80.0-100.0) fL MCH 28.8 (25.0-34.0) pg MCHC 34.2 (32.0-36.0) g/dL RDW Std Deviation 38.8 (36.4-46.3) fL RDW Coeff of Danielle 12.8 (11.5-14.5) % Plt Count 218 (130-400) K/uL MPV 9.6 (9.4-12.4) fL Immature Gran % (Auto) 0.1 % Neut % (Auto) 50.8 % Lymph % (Auto) 38.6 % Cooper % (Auto) 6.4 % Eos % (Auto) 3.3 % Baso % (Auto) 0.8 % Neut # (Auto) 3.64 (1.40-6.50) K/uL Lymph # (Auto) 2.77 (1.20-3.40) K/uL Cooper # (Auto) 0.46 (0.11-0.59) K/uL Eos # (Auto) 0.24 (0.00-0.50) K/uL Baso # (Auto) 0.06 (0.00-0.20) K/uL Immature Gran # (Auto) 0.01 (0.01-0.20) K/uL PT 10.9 (9.0-12.0) Seconds INR 1.0 (0.9-1.1) APTT 26 (21-31) Seconds PTT Ratio 1.0 Sodium 135 L (136-145) mmol/L Potassium 4.0 (3.5-5.1) mmol/L Chloride 99 (98-107) mmol/L Carbon Dioxide 27 (21-32) mmol/L Anion Gap 9 (3-11) BUN 11 (6-23) mg/dl Creatinine 0.95 (0.6-1.2) mg/dl Est Cr Clr Drug Dosing 48.0 ml/min eGFR 59.45 BUN/Creatinine Ratio 11.6 (10-20) Glucose 283 H (70-99(Fasting)) mg/dl Calcium 9.6 (8.6-10.3) mg/dl Magnesium 1.8 (1.7-2.4) mg/dl Total Bilirubin 0.5 (0.2-1.0) mg/dl AST 28 (13-39) U/L ALT 24 (7-52) U/L Alkaline Phosphatase 61 (34-104) U/L Troponin I High Sens 4.4 (0-14) pg/ml Total Protein 7.6 (6.0-8.3) gm/dl Albumin 4.3 (3.4-5.0) gm/dl Globulin 3.3 (2.5-4.0) gm/dl Albumin/Globulin Ratio 1.3 (0.9-2) TSH 5.720 H (0.300-4.500) uIu/ml Free T4 1.16 (0.61-1.60) ng/dl Lyme Disease Screen Negative (Negative) Administered Medications Magnesium Sulfate/Dextrose (Magnesium Sulfate / D5w) 1 gm in 100 mls @ 50 mls/hr IV Q2H JESSIKA Stop: 08/15/24 17:14 Last Admin: 08/15/24 15:15 Dose: 50 mls/hr Documented By: Infusion: 08/15/24 15:15 Dose: Infused Documented By: Admin: 08/15/24 13:24 Dose: 50 mls/hr Documented By: MONICA Imaging Data Radiologist's Impression: Chest X-Ray 08/15/24 10:27 XR chest 1V portable CLINICAL HISTORY: weak, duncan COMPARISON STUDY: 10/30/2017 FINDINGS: There is increased cardiomegaly with mild pulmonary vascular congestion. Inspiration is shallow. There is interval mild stranding at the left base. No pleural effusion or pneumothorax. IMPRESSION: 1. Mild CHF. 2. Atelectasis versus early pneumonia left lung base. ACT 112: Negative or not required by law. Electronically signed by: Maged Parikh M.D. 08/15/2024 11:24 AM Discharge Plan Visit Data Chief Complaint: Bradycardia ED Provider: Yas,Rodrigo T Discharge Problem: CHB (complete heart block) Patient Disposition: Admitted As Inpatient Condition: Serious Discharge Instructions Interventions: ED Discharge Assessment Last Done: 08/15/24 14:49
[2024-08-15 12:03] LABS: T4 Free Thyroxine 1.16 ng/dl (0.61-1.60)
--- NOTE | 2024-08-15 12:04 | History & Physical Report ---
"Date of Service August 15, 2024 Assessment & Plan (1) CHB (complete heart block): (2) Diabetes mellitus type 2, uncontrolled: (3) Hypothyroidism: (4) Essential hypertension: Plan Erma is a 83F with a PMHx asthma, gout, HTN, HLD and diabetes who presents to the hospital with episode of near syncope. Found to be in complete heart block. CXR with concerns for CHF and PNA - however no O2 requirment, WBC, fevers, symptoms or hypoxia. Admitted for cardiology evaluation and likely pacemaker placement. #Complete Heart Block Keep Pacer pads in place. Bed rest. Cardiology consulted - per ER handoff, likely plan for pacer placement but not today. NPO at midnight K 4.0, Mag 1.8 on admission - 2gm IV mag ordered, recheck BMP and Mag in AM Lyme screen negative Echo ordered Hold atenolol #DMT2 - poorly controlled Home Meds: Ozempic (Sundays) - HELD BSG 283 on arrival with last documented A1c 10.1 02/2023 AM A1c Lantus 10u + SSI CF 50 CR 15 #HTN | HLD Continue statin Continue candesartan or formulary equivalent #Hypothyroidism TSH mildly elevated 5.7, free T4 WNL Continue Synthroid - dose recently adjusted, will not make further dose adjustments at this time, continue outpatient follow up #Asthma - Continue home inhalers. Dispo: admit PCU DVT proh: SCDs with likely pacer placement CODE STATUS: FULL CODE History of Present Illness Chief Complaint: near syncope Primary Care Provider: Mary Alonzo DO Erma is a 83F with a PMHx asthma, gout, HTN, HLD and diabetes who presents to the hospital with episode of near syncope. Woke up feeling normal, ate breakfast and then started feeling woozy. Did not pass out. Reports increase stress this week with recent power outage and selling her condo in [place]. denies cough, cold, congestion symptoms. Has seasonal allergies but they have not been bad. Only took her Synthroid this morning. Dose recently increased from 88 to 100 about a week ago. Diabetes - has had multiple changes by her prescribers recently, takes ozempic on Sundays morning. Allergies Allergy/AdvReac Type Severity Reaction Status Date / Time prednisone Allergy Severe ITCHY, RED Verified 01/28/24 10:54 sulfite Allergy Severe RASH/REDDENED/THROAT Verified 01/28/24 10:54 CLOSES codeine Allergy Mild RASH Verified 01/28/24 10:54 monosodium glutamate Allergy Mild itchy, rash Verified 01/28/24 10:54 pollen extracts Allergy Unknown SEASONAL Verified 01/28/24 10:54 ALLERGIES TREES Allergy Unknown SEASONAL Uncoded 01/28/24 10:54 ALLERGIES WEEDS Allergy Unknown SEASONAL Uncoded 01/28/24 10:54 ALLERGIES Home Medications Medication Instructions Recorded Confirmed Type calcium 315 mg (as 1 tab PO QAM 10/29/18 08/15/24 History citrate)-vitamin D3 6.25 mcg (250 unit) tablet (Citracal + Vitamin D Maximum) carboxymethylcellulose sodium 0.25 2 drops ophthalmic (eye) DAILY PRN 10/29/18 08/15/24 History % eye drops Dry Eye(S) fluticasone propionate 50 1 spray intranasal QPM 10/29/18 08/15/24 History mcg/actuation nasal spray,suspension glucosamine-chondroitin 250 mg-200 2 tab PO QAM 10/29/18 08/15/24 History mg tablet multivitamin (Daily Multi-Vitamin 1 tab PO QPM 10/29/18 08/15/24 History tablet) aspirin 81 mg tablet,delayed 81 mg PO HS 02/18/19 08/15/24 History release cyanocobalamin (vitamin B-12) 1,000 mcg PO QAM 02/18/19 08/15/24 History 1,000 mcg tablet (Vitamin B-12) colchicine 0.6 mg tablet 0.6 mg PO BID PRN gout flare up 09/22/22 08/15/24 Rx #90 tabs atenolol 50 mg tablet 50 mg PO QAM #90 tabs 02/27/23 08/15/24 Rx simvastatin 20 mg tablet 20 mg PO QPM #90 tabs 02/27/23 08/15/24 Rx albuterol sulfate 90 mcg/actuation 2 puff inhalation Q4H PRN 08/15/23 08/15/24 Rx aerosol inhaler (ProAir HFA) shortness of breath or wheezing #1 inhaler montelukast 10 mg tablet 10 mg PO HS #100 tabs 08/15/23 08/15/24 Rx budesonide-formoterol HFA 80 2 inh inhalation BID PRN sob 08/15/24 08/15/24 History mcg-4.5 mcg/actuation aerosol inhaler candesartan 16 mg tablet 16 mg PO DAILY 08/15/24 08/15/24 History glucagon 1 mg solution for 1 mg subcut DIRECTED PRN 08/15/24 08/15/24 History injection (Glucagon Emergency Kit) Hypoglycemia levothyroxine 150 mcg tablet 100 mcg PO DAILY 08/15/24 08/15/24 History semaglutide 2 mg/dose (8 mg/3 mL) 2 mg subcut WK 08/15/24 08/15/24 History subcutaneous pen injector (Ozempic) Past Med/Surg History Problem List (Updated 08/15/24 @ 12:58 by Background Daemon) CHB (complete heart block) (Acute) Mild persistent asthma, uncomplicated Right hip pain Dyspareunia, female Elevated vitamin B12 level Diabetes mellitus type 2, uncontrolled Ankle pain Asthma inhalers daily/prn Degenerative cervical disc Gout Allergic rhinitis Nocturnal hypoxemia Reactive airway disease Complex sleep apnea syndrome Essential hypertension (Acute) Hypercholesterolemia (Acute) Hypothyroidism (Acute) Tachycardia (Acute) follows with Dr. Solorio Type 2 diabetes mellitus (Acute) Medical History (Updated 08/15/24 @ 12:58 by Background Daemon) Fracture of distal end of left fibula Surgical History History of colonoscopy with polypectomy (~2013) History of tooth extraction History of wisdom tooth extraction History of bilateral cataract extraction S/P dilation and curettage S/P appendectomy Family History Son Asthma Grandmother (Maternal) Breast cancer No family history of adverse response to anesthesia Aunt Breast cancer Mother Heart disease Family history of diabetes mellitus Father Liver cancer Kidney malignancy Grandmother (Paternal) No family history of adverse response to anesthesia Grandfather (Maternal) Myocardial infarction Denies family history of Ovarian cancer Prostate cancer Colorectal cancer Social History Smoking Status: Never smoker Second Hand Exposure: Yes (father smoked); Do You Dip or Chew Tobacco: No; Hx Alcohol Use: Yes Hx Substance Use: No Preferred Language: Bulgarian Communication Ability: Effective Visual Impairment: No Limitations Hearing Ability: Normal Filter Assembler Required: No Beliefs That Will Affect Care: None marital status: Current Living Situation: Spouse current occupational status: retired Feels Safe at Home: Yes Childhood Exposure to Second-Hand Smoke: Yes Dental Care, Regularly: Yes Physical Activity Frequency: Daily Seatbelt Use: always Sunscreen Use: Yes Assistive Devices: CPAP Review of Systems Review of Systems: All systems reviewed & are unremarkable except as noted in Subjective Physical Exam Physical Exam: General: NAD, VS as above Resp: normal respiratory effort, lungs clear to auscultation CV: bradycardic , no murmur, Extremities: Moves all extremities, no LE edema Neuro: A&O x3, Skin: intact, no lesions noted Results & Data Results & Data Vital Signs (Past 12 Hours) Vital Signs Temp Pulse Resp BP Pulse Ox O2 Del Method 08/15/24 11:38 Room Air 08/15/24 11:33 44 L 16 117/60 96 08/15/24 11:30 117/60 08/15/24 11:30 117/60 08/15/24 11:30 117/60 08/15/24 11:21 38 L 17 96 08/15/24 11:12 46 L 22 95 08/15/24 11:03 19 08/15/24 11:02 39 L 08/15/24 10:51 38 L 11 L 95 08/15/24 10:42 39 L 10 L 97 08/15/24 10:33 40 L 12 96 08/15/24 10:27 97.9 F 40 L 18 134/72 98 Room Air Laboratory Results cbc and chemistry reviewed Diagnostic Findings CXR reviewed EKG reviewed Supervising Physician Co-Signing Physician Notes Patient seen and examined, chart reviewed, case discussed with Erika Samson PA-C and I agree with the assessment and plan as above except as otherwise noted Labs and images reviewed Presents with third-degree heart block. Atenolol is held. Lyme screen is negative. Remains in heart block and evening recheck, narrow with rate 3540. Blood pressure low normal without lightheadedness/dizziness/chest pain. Antic ipate pacer placement. Echo pending. Agree with admission to PCU, pacer pads in place. Bedrest. No concerns at time of bedside visit, did review heart block and pacemakers with patient at bedside, all questions answered to her satisfaction with no additional questions at bedside visit. Agree with above PG Care Time/CCT Total # of Minutes Spent Total Time Spent with Patient: Total time spent is greater than 50% in coordination of care (as documented) at patient's floor/unit and/or counseling patient: Coding Level of Care Code 24352 INT INP/OBS CARE 3/75MIN Diagnoses CHB (complete heart block) I44.2 Diabetes mellitus type 2, uncontrolled E11.65 Hypothyroidism E03.9 Essential hypertension I10"
--- OUTSIDE RECORDS SUMMARY | 2024-08-15 12:12 | External Medical Summary | Continuity of Care Document ---
Author Name Unknown Organization [facility] [address] [id number] Care Team Providers Care Power Wood Sawyer Name Role Phone Chiara Medley Primary Care Physician [phone] Encounter [facility] [id number] Date(s): 07/21/24 - 07/21/24 [facility] [address] [facility] [address] [place], [place] [id number] Encounter Diagnosis Changing skin lesion(Discharge Diagnosis) - 07/21/24 Seborrheic keratoses(Discharge Diagnosis) - 07/21/24 Discharge Disposition: Home or Self Care Attending Physician: ANTONIO Randolph Dawn M Encounter Type: Clinic Allergies, Adverse Reactions, Alerts Substance Criticality Severity Reaction Reaction Severity Status codeine skin reaction Active predniSONE skin reaction Activ e MetFORMIN (Eqv-Glumetza) chest pain Active Grass Nasal congestion Act rachael Ragweed Nasal congestion Act rachael Mold Nasal congestion Act rachael Pollen Itching of eye Nasal congestion Nasal congestion Active sulfites Anaphylaxis Active Allergy Not found in Search 1 unknown Active 1all steroids Assessment and Plan Extracted from: Title:Dermatology Office Visit Note Author:Qi epperson PA-C, Dawn M Date:07/21/24 1. Changing skin lesion Changing skin lesion - bx today. will contact with result 2. Seborrheic keratoses new- SEBORRHEIC KERATOSES - discussed the likely benign and genetic nature of these lesions._ watchful waiting Reviewed sun protection with SPF 30 or higher applied every 80 minutes and use of sun protective clothing and hat. Call with questions or concerns. Follow up 1 year and pending path. Patient in agreement with plan. Immunizations Given and Recorded Vaccine Date Status Refusal Reason influenza virus vaccine, inactivated 11/30/23 Sina rded SARS-CoV-2 (COVID-19) mRNA BNT-162b2 vax 01/05/23 Recorded SARS-CoV-2 mRNA (Pfizer 12+) bivalent 12/15/21 Rec orded SARS-CoV-2 mRNA ([id number]) 08/25/21 Re corded SARS-CoV-2 (COVID-19) mRNA-1273 vaccine 12/23/20 R ecorded SARS-CoV-2 (COVID-19) mRNA-1273 vaccine 12/22/20 R ecorded SARS-CoV-2 (COVID-19) mRNA-1273 vaccine 06/17/20 R ecorded SARS-CoV-2 (COVID-19) mRNA-1273 vaccine 04/19/20 R ecorded zoster vaccine, inactivated 04/11/19 Recorded zoster vaccine, inactivated 02/21/19 Recorded pneumococcal 23-valent vaccine 02/14/19 Recorded pneumococcal 23-valent vaccine 01/07/08 Recorded tetanus/diphtheria/pertuss, acel (Tdap) 02/06/15 R ecorded pneumococcal 13-valent vaccine 08/25/14 Recorded zoster vaccine live 04/09/11 Recorded Medications Albuterol (Eqv-ProAir HFA) 90 mcg/inh inhalation aerosol Start: 09/14/21 9:03:00 AM EDT Start Date: 09/14/21 Status: Ordered Repeat number: 1 amitriptyline 25 mg oral tablet Start: 11/25/21 8:32:00 AM EDT, 1 tab, PO, qhs, Disp# 30 tab, Refills: 3, Begin with half a tablet at night and increase to a full tablet as tolerated, Pharmacy: [facility]/pharmacy #[id number] Start Date: 11/25/21 Stop Date: 03/25/22 Status: Ordered Quantity: 30.0 Unit: tab Repeat number: 4 Indications: Radiculopathy, sacral and sacrococcygeal region; aspirin 81 mg oral capsule Start: 09/14/21 9:06:00 AM EDT Start Date: 09/14/21 Status: Ordered Repeat number: 1 atenolol 50 mg oral tablet Start: 07/10/24 11:03:00 AM EDT, 1 tab, PO, Daily, Disp# 30 tab, Refills: 2, Pharmacy: [facility]/pharmacy #[id number] Start Date: 07/10/24 Status: Ordered Quantity: 30.0 Unit: tab Repeat number: 3 Azo cranberry Start: 07/10/23 8:31:00 AM EDT Start Date: 07/10/23 Status: Ordered Repeat number: 1 candesartan 16 mg oral tablet Start: 08/27/18 9:04:00 AM EDT, 1 tab, PO, Daily Start Date: 08/27/18 Status: Ordered Repeat number: 1 carboxymethylcellulose-sod hyaluronate Start: 09/14/21 9:06:00 AM EDT, eye drop Start Date: 09/14/21 Status: Ordered Repeat number: 1 Centrum Silver Women's oral tablet Start: 12/27/11 3:16:00 PM EDT, 1 tab, PO, Daily Start Date: 12/27/11 Status: Ordered Repeat number: 1 Citracal Petites 200 mg-250 intl units oral tablet Start: 12/27/11 3:17:00 PM EDT, 1 tab, PO, bid Start Date: 12/27/11 Status: Ordered Repeat number: 1 colchicine 0.6 mg oral tablet Start: 01/09/23 9:24:00 AM EDT, 1 tab, PO, Daily, Disp# 10 tab, Refills: 1, at the first sign of a gout flare followed by 0.6 mg one hour later, PRN: as needed for gout pain, Pharmacy: [facility]/pharmacy #[id number] Start Date: 01/09/23 Stop Date: 01/21/23 Status: Ordered Quantity: 10.0 Unit: tab Repeat number: 2 Indications: Type 2 diabetes mellitus without complications; Juvenile osteochondrosis of tarsus, left ankle; Achilles tendinitis, left leg; Gout, unspecified; Achilles tendinitis, left leg; DEXCOM G7 SENSOR Start: 01/21/24 11:39:00 AM EDT, DEXCOM G7 SENSOR, See Instructions, Disp# 3 unknown unit, Refills:1, CHANGE SENSOR EVERY 10 DAYS, Pharmacy [facility] STORE [id number] Start Date: 01/21/24 Status: Ordered Quantity: 3.0 Unit: unknown unit Repeat number: 1 Dexcom G7 Sensor Start: 03/26/24 12:53:00 PM EST, See Instructions, Disp# 3 kit, Refills: 5, Change sensor every 10 days, [id number] Start Date: 03/26/24 Status: Ordered Quantity: 3.0 Unit: kit Repeat number: 6 Indications: Type 2 diabetes mellitus with hyperglycemia; Dexcom Sensor Kit 4 ct Start: 07/10/23 9:25:00 AM EDT, See Instructions, Disp# 1 each, Use as directed, [id number] Start Date: 07/10/23 Status: Ordered Quantity: 1.0 Unit: each Repeat number: 1 Indications: Type 2 diabetes mellitus with hyperglycemia; estradiol 0.1 mg/g vaginal cream Start: 09/14/21 9:04:00 AM EDT Start Date: 09/14/21 Status: Ordered Repeat number: 1 fluconazole 150 mg oral tablet Start: 07/10/23 9:02:00 AM EDT, 1 tab, PO, ONCE, Disp# 2 tab, Refills: 0, Take one tablet (150 mg) once. If symptoms persist after 5 days, may repeat dose., Pharmacy: [facility]/pharmacy #[id number] Start Date: 07/10/23 Status: Ordered Quantity: 2.0 Unit: tab Repeat number: 1 fluticasone 50 mcg/inh nasal spray Start: 09/14/21 9:04:00 AM EDT, 1 spray, each nostril, Daily Start Date: 09/14/21 Status: Ordered Repeat number: 1 glucagon 1 mg injection Start: 07/19/24 3:07:00 PM EDT, 1 mg =, IM, ONCE, Disp# 2 pen_needle, Refills: 1, Pharmacy: [facility] Start Date: 07/19/24 Status: Ordered Quantity: 2.0 Unit: Repeat number: 2 Januvia 50 mg oral tablet Start: 07/10/24 11:58:00 AM EDT, 1 tab, PO, Daily, Disp# 90 tab, Refills: 1, Pharmacy: [facility] Start Date: 07/10/24 Stop Date: 01/06/25 Status: Ordered Quantity: 90.0 Unit: tab Repeat number: 2 Lantus Solostar Pen 100 units/mL subcutaneous solution Start: 07/16/24 2:57:00 PM EDT, 5 unit =, subQ, Daily, Disp# 10 mL, Refills: 1, Note to Pharmacy: [id number], Pharmacy: [facility]/pharmacy #[id number] Start Date: 07/16/24 Status: Ordered Quantity: 10.0 Unit: mL Repeat number: 2 levothyroxine 88 mcg (0.088 mg) oral tablet Start: 07/10/24 11:03:00 AM EDT, 1 tab, PO, Daily, Disp# 90 tab, Refills: 2, Pharmacy: [facility]/pharmacy #[id number] Start Date: 07/10/24 Status: Ordered Quantity: 90.0 Unit: tab Repeat number: 3 montelukast 10 mg oral tablet Start: 09/10/19 9:03:00 AM EDT Start Date: 09/10/19 Status: Ordered Repeat number: 1 Osteo Bi-Flex Start: 08/28/13 8:52:00 AM EDT, 1 tab, PO, Daily Start Date: 08/28/13 Status: Ordered Repeat number: 1 Ozempic (2 mg dose) 8 mg/3 mL subQ pen Start: 06/16/24 9:31:00 AM EDT, 2 mg =, subQ, q7days, Disp# 3 unknown unit, Refills: 0, Pharmacy: [facility] [id number] Start Date: 06/16/24 Status: Ordered Quantity: 3.0 Unit: unknown unit Repeat number: 1 Symbicort 80 mcg-4.5 mcg/inh inhalation aerosol Start: 09/10/19 9:03:00 AM EDT Start Date: 09/10/19 Status: Ordered Repeat number: 1 triamcinolone 0.1% topical cream Start: 09/13/20 9:12:00 AM EDT, 1 appl, topical, bid, Disp# 80 g, Refills: 3, Pharmacy: [facility]/pharmacy #[id number] Start Date: 09/13/20 Status: Ordered Quantity: 80.0 Unit: g Repeat number: 4 UltiCare Pen Needle 32G x 4mm Start: 07/16/24 3:00:00 PM EDT, See Instructions, Disp# 30 pen_needle, Refills: 1, Once daily injection, Note to Pharmacy: may substitute, Pharmacy: [facility]/pharmacy #[id number] Start Date: 07/16/24 Status: Ordered Quantity: 30.0 Unit: Repeat number: 2 Vitamin B12 Start: 09/14/21 9:06:00 AM EDT Start Date: 09/14/21 Status: Ordered Repeat number: 1 Zocor 20 mg oral tablet Start: 07/10/24 10:44:00 AM EDT, 1 tab, PO, qhs, Disp# 90 tab, Refills: 1, Pharmacy: [facility] Start Date: 07/10/24 Stop Date: 01/06/25 Status: Ordered Quantity: 90.0 Unit: tab Repeat number: 2 ZyrTEC Start: 08/24/17 8:54:00 AM EDT Start Date: 08/24/17 Status: Ordered Repeat number: 1 Mental Status 07/21/24 Barriers to Learning one year None evide nt Mandatory Health Literacy Documentation Yes Health Literacy Communication Barriers N ever Primary Language Latvian Problem List Condition Confirmation Course Effective Dates Status H ealth Status Informant Left ankle pain Confirmed Active Anxiety Confirmed Active Arthritis Confirmed Active Vulvar candidiasis Confirmed Active Depression Confirmed Active Transaminitis Confirmed Active Left foot pain Confirmed Active Gout Confirmed Active Gout of left foot Confirmed Active Hx of gout Confirmed Active Hyperlipidemia Confirmed Active HTN (hypertension) Confirmed Active Hypothyroidism Confirmed Active Left Achilles tendinitis Confirmed Active Mild persistent asthma Confirmed Active 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 Uncontrolled type 2 diabetes mellitus with hyperglycemia Confirmed Active Diagnosis Diagnosis Type Effective Dates Health Status Clinical Service Informant Changing skin lesion Discharge Diagnosis 07/21/24 Seborrheic keratoses Discharge Diagnosis 07/21/24 Procedures Procedure Date Related Diagnosis Body Site Status Shave biopsy of skin 07/21/24 Comp leted Procedure 1 11/02/22 Completed Punch biopsy of skin 10/27/21 Comp leted EKG 06/08/18 Completed Stress test treadmill 06/08/18 Com pleted MRI 2 05/10/18 Completed C-spine x-ray 3 11/15/15 Completed Right shoulder x-ray 4 11/15/15 Co mpleted Appendectomy 1994 Completed Cataract 5 Completed Extraction of single tooth Completed 1stem cell injection in R hip 2heart and lungs 3[facility] Impression: 1. Degenerative changes as described with mild anterior subluxation of C4 on C5 likely arthritic. No evidence for acute fracture or dislocation 4[facility] Impression: 1. No acute fractures 2. Calcific tendinitis 5left/right Social History Social History Type Response Smoking Status Never smoked cigaret reese Sex Female Sex Representation Female (finding) Dermatology Outpatient Note * ANTONIO Randolph, Sissy M: PERFORM Event Display: Dermatology Outpt Note Authored Date: [id number] Chief Complaint skin exam - no concerns, just a spot or two i'll have her check History of Present Illness JOIE NOBLES is a 83 year old patient returning today BUT NEW TO ME with a chief complaint of skin exam - no concerns, just a spot or two i'll have her check. The patient feels the condition is stable. She denies itching, bleeding, oozing, crusting or evolving lesions. Patient has no past personal history of skin cancer: Family history: none of skin cancer Patient uses sunscreen. Patient reports history of blistering sunburns but no tanning beds. Grew up in [place] and now goes to [place] in the [place]. 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 Physical Exam _ Constitutional: Generally well appearing, well developed. Appears stated age. Eyes: Conjunctivae and lids without noted inflammation, lesion, mass, deformity or drainage. Cardiovascular: Swelling of the lower extremities not noted. Extremities pink, warm and dry. Extremities: Digits and nails without clubbing, cyanosis, petechiae, signs of ischemia, infectionor inflammation. Neurological / Psychiatric: Oriented to person, place and time. Appropriate mood and affect. No notable depression, anxiety or agitation. Complete skin exam was performed today including head, neck, chest, axillae, abdomen, groin, buttocks, back, bilateral upper and bilateral lower extremities. Palpation of the scalp, inspection of hair of scalp, eyebrows and finger and toenails was performed. The exam was within normal limits the exception of: PATIENT DECLINED REGIONAL AIRLINE PILOT CHIN - 0.4cm crusted papule - bx today RIGHT AXILLA - hyperkeratotic plaques and papules consistent with seborrheic keratoses Procedure Note A shave skin biopsy CHIN was performed after a time out (patient identified with full name and date, site located and confirmed with team members) and verbal informed consent was obtained. Risks (infection, scar, bleeding) and benefits (proper diagnosis and treatment) were reviewed. Alternative options were discussed if applicable. Time was given to address and answer all questions. Photograph was taken to document location. Skin prep: isopropyl alcohol Anesthesia: 1% lidocaine with epinephrine Shave biopsy with derm blade. Hemostasis/Closure: aluminum chloride Dressing: sterile Verbal and written wound care instructions given. Patient was informed that further procedure(s)or treatment(s) may be needed pending pathology results. Patient is instructed to call should any problems or concerns arise. The patient agreed to call the office to obtain the test results if they have not been communicated to them within 2 weeks. Patient left after procedure in good condition. Images 2024-07-21 09:13:40 2024-07-21 09:13:47 Assessment/Plan 1. Changing skin lesion Changing skin lesion - bx today. will contact with result 2. Seborrheic keratoses new- SEBORRHEIC KERATOSES - discussed the likely benign and genetic nature of these lesions._ watchful waiting Reviewed sun protection with SPF 30 or higher applied every 80 minutes and use of sun protective clothing and hat. Call with questions or concerns. Follow up 1 year and pending path. Patient in agreement with plan. Problem List/Past Medical History Ongoing Anxiety Arthritis Depression Gout Gout of left foot Mohamud's deformity of left heel HTN (hypertension) Hx of gout Hyperlipidemia Hypothyroidism Left Achilles tendinitis Left ankle pain Left foot pain Mild persistent asthma Transaminitis Uncontrolled type 2 diabetes mellitus with hyperglycemia Vulvar candidiasis Procedure/Surgical History •Procedure| Service Date: 11/02/2022•Punch biopsy of skin| Service Date: 10/27/2021•Stress test treadmill| Service Date: 06/08/2018•EKG| Service Date: 06/08/2018•MRI| Service Date: 05/10/2018•Right shoulder x-ray| Service Date: 11/15/2015•C-spine x-ray| Service Date: 11/15/2015•Appendectomy| Service Date: 1994•Cataract•Extraction of single tooth Medications albuterol(Albuterol (Eqv-ProAir HFA) 90 mcg/inh inhalation aerosol) amitriptyline(amitriptyline 25 mg oral tablet), 25 mg= 1 tab, PO, qhs, 3 refills aspirin(aspirin 81 mg oral capsule) atenolol(atenolol 50 mg oral tablet), 50 mg= 1 tab, PO, Daily, 2 refills budesonide-formoterol(Symbicort 80 mcg-4.5 mcg/inh inhalation aerosol) calcium and vitamin D combination(Citracal Petites 200 mg-250 intl units oral tablet), 1 tab, PO, bid candesartan(candesartan 16 mg oral tablet), 16 mg= 1 tab, PO, Daily carboxymethylcellulose-sod hyaluronate cetirizine(ZyrTEC) chondroitin-glucosamine(Osteo Bi-Flex), 1 tab, PO, Daily colchicine(colchicine 0.6 mg oral tablet), 0.6 mg= 1 tab, PO, Daily, PRN, 1 refills cranberry(Azo cranberry) cyanocobalamin(Vitamin B12) diabetes supplies(Dexcom Sensor Kit 4 ct), See Instructions diabetes supplies(Dexcom G7 Sensor), See Instructions, 5 refills estradiol topical(estradiol 0.1 mg/g vaginal cream) fluconazole(fluconazole 150 mg oral tablet), 150 mg= 1 tab, PO, ONCE fluticasone nasal(fluticasone 50 mcg/inh nasal spray), 1 spray, each nostril, Daily glucagon(glucagon 1 mg injection), 1 mg, IM, ONCE, 1 refills insulin glargine(Lantus Solostar Pen 100 units/mL subcutaneous solution), 5 unit, subQ, Daily, 1 refills levothyroxine(levothyroxine 88 mcg (0.088 mg) oral tablet), 88 mcg= 1 tab, PO, Daily, 2 refills montelukast(montelukast 10 mg oral tablet) multivitamin with minerals(Centrum Silver Women's oral tablet), 1 tab, PO, Daily semaglutide(Ozempic (2 mg dose) 8 mg/3 mL subQ pen), 2 mg, subQ, q7days simvastatin(Zocor 20 mg oral tablet), 20 mg= 1 tab, PO, qhs, 1 refills SITagliptin(Januvia 50 mg oral tablet), 50 mg= 1 tab, PO, Daily, 1 refills syringe needles(UltiCare Pen Needle 32G x 4mm), See Instructions, 1 refills triamcinolone topical(triamcinolone 0.1% topical cream), 1 appl, topical, bid, 3 refills unlisted medication(DEXCOM G7 SENSOR), See Instructions Allergies Allergy Not found in Search unknown Grass Nasal congestion MetFORMIN (Eqv-Glumetza) chest pain Mold Nasal congestion Pollen Itching of eye, Nasal congestion, Nasal congestion Ragweed Nasal congestion codeine skin reaction predniSONE skin reaction sulfites Anaphylaxis Social History Smoking Status Never smoked cigarettes Alcohol - Low Risk Exercise - Occasional exercise Home/Environment - Low Risk Lives with:Spouse Smoker in household:No Nutrition/Health - Low Risk Substance Abuse - No Risk Tobacco - No Risk Electronic Signature on File Electronically Reviewed/Signed by: VAMSHI Hernandez Author Signature Dt/Tm:07/21/2024 09:20 AM Department of Family Medicine Department of Dermatology [facility] Ortho Outpt Note * ALYCE Medley, Chiara Childers: PERFORM Event Display: Ortho Outpt Note Authored Date: [id number] Name: JOIE NOBLES Patient Number: [id number] : 1940 Date of Service: 02/01/2023 Patient presented for orthotics pickup Electronic Signature on File Electronically Reviewed/Signed by: Chiara Medley DPM Author Signature Dt/Tm:02/01/2023 11:36 AM Division of Sports Medicine [facility] Patient Care team information Care Team Personnel Name: ALYCE Medley Christina L Position: Physician - Podiatry Member Role: Primary Care Provider Address: [address] [place] [address] Telecom: [phone] Care Team Related Persons Name: CRISTHIAN NOBLES Insurance Providers Guarantor name: JOIE NOBLES Health Plan Information #: 1 Payer: [employer] PPO Member Number: [id number] Policy Number: NA Group Number: [id number] Payer Identifier: [id number] Health Plan Information #: 2 Payer: [employer] PPO Member Number: [id number] Policy Number: NA Group Number: [id number] Payer Identifier: [id number]"
--- OUTSIDE RECORDS SUMMARY | 2024-08-15 12:12 | External Medical Summary | Continuity of Care Document ---
Author Name Unknown Organization [place] [address] [place] [address] [phone] Care Team Providers Care Pony Ride Attendant Name Role Phone Chiara Medley Primary Care Physician [phone] Encounter [facility] [id number] Date(s): 07/10/24 - 07/10/24 [facility] 1849 [facility] 207 [facility] [address] [address] [phone] Encounter Diagnosis HTN (hypertension)(Discharge Diagnosis) - 07/10/24 Hx of gout(Discharge Diagnosis) - 07/10/24 Uncontrolled type 2 diabetes mellitus with hyperglycemia(Discharge Diagnosis) - 07/10/24 Hypothyroidism(Discharge Diagnosis) - 07/10/24 Mild persistent asthma(Discharge Diagnosis) - 07/10/24 Hyperlipidemia(Discharge Diagnosis) - 07/10/24 Essential (primary) hypertension(Final) - Personal history of other diseases of the musculoskeletal system and connective tissue(Final) - Type 2 diabetes mellitus with hyperglycemia(Final) - Hypothyroidism, unspecified(Final) - Hyperlipidemia, unspecified(Final) - Mild persistent asthma, uncomplicated(Final) - Discharge Disposition: Home or Self Care Attending Physician: DO Alonzo Gretchen Elizabeth Encounter Type: Clinic Allergies, Adverse Reactions, Alerts [...] 1all steroids Assessment and Plan Extracted from: Title:Office Visit Note Author:MD Derrick, Eitan Avila ate:07/10/24 1. HTN (hypertension) Chronic condition, at goal Goal: SBP<140 DBP<90 Data: _ Plan: -BP on presentation today:132/72 -Taking Candesartan 16mg and Atenolol 50mg daily -Denies flushing, headache, dizziness and blurry vision -Continue same meds. -F/U precautions provided to patient 2. Hx of gout Chronic condition, at goal Goal: Symptoms Control Data: unique tests reviewed: _ Uric acid(10/24/23): 6.7 Plan: -No recent flares -Takes colchicine if needed. -F/U precaution provided 3. Uncontrolled type 2 diabetes mellitus with hyperglycemia Chronic condition not at goal/exacerbated/progressive/side effects of treatment Goal: HBa1c<9 Data: unique tests ordered: _ CMP, HBa1c Plan: -Taking Ozempic 2mg q7days. -Dexcom BS is 242 right now. -Denies increased frequency of urination, thirst, blurry vision. -Hba1c(01/22/24):9.5 -Will add Januvia. Start with 50 mg daily. Will adjust based on lab results -Ordered HBA1C and CMP. Will follow up with lab results -Immediate F/U precautions provided -F/U after 3 months with CMP and Hba1c 4. Hypothyroidism Chronic condition not at goal/exacerbated/progressive/side effects of treatment Goal: Symptoms control, Maintain TSH <1 Data: unique tests ordered: _ Plan: -Takes Levothyroxine 88mcg daily -Denies any symptoms of dysregulation of thyroid -TSH(10/26/23): 3.14 -Ordered TSH and Will F/U with lab results 5. Hyperlipidemia Chronic condition, at goal Goal: TC<200; LDL Cholesterol < 90 Data: unique tests ordered: _ Plan: -Taking Simvastatin 20 mg daily -Denies side effects with Simvastatin. -Lipid profile(10/25): WNL - Refilled simvastatin today Immunizations Given and Recorded Vaccine Date Status Refusal Reason influenza virus vaccine, inactivated 11/30/23 Sina rded SARS-CoV-2 (COVID-19) mRNA BNT-162b2 vax 01/05/23 Recorded SARS-CoV-2 mRNA (Pfizer 12+) bivalent 12/15/21 Rec orded SARS-CoV-2 mRNA (ebjetvjkibl-dprk-use) 08/25/21 Re corded SARS-CoV-2 (COVID-19) mRNA-1273 vaccine [...] 08/25/14 Recorded zoster vaccine live 04/09/11 Recorded Mental Status 07/10/24 Barriers to Learning one year None evide nt Mandatory Health Literacy Documentation Yes Health Literacy Communication Barriers N ever Primary Language Hebrew Problem List Condition Confirmation Course Effective Dates [...] Effective Dates Health Status Clinical Service Informant Hx of gout Discharge Diagnosis 07/10/24 Non-Specified Mild persistent asthma Discharge Diagnosis 07/10/24 Non-Specified Uncontrolled type 2 diabetes mellitus with hyperglycemia Discharge Diagnosis 07/10/24 Non-Specified HTN (hypertension) Discharge Diagnosis 07/10/24 Non-Specified Hypothyroidism Discharge Diagnosis 07/10/24 Non-Specified Hyperlipidemia Discharge Diagnosis 07/10/24 Non-Specified Procedures Procedure Date Related Diagnosis Body Site Status Procedure 1 11/02/22 Completed Punch biopsy of skin 10/27/21 Comp leted EKG 06/08/18 Completed Stress test treadmill 06/08/18 Com pleted MRI 2 05/10/18 Completed C-spine x-ray 3 11/15/15 Completed Right shoulder x-ray 4 11/15/15 Co mpleted Appendectomy 1994 Completed Cataract 5 Completed Extraction of single tooth Completed 1stem cell injection in R hip 2heart and lungs 3[facility] Impression: 1. Degenerative changes as described with mild anterior subluxation of C4 on C5 likely arthritic. No evidence for acute fracture or dislocation 4[facility] Impression: 1. No acute fractures 2. Calcific tendinitis 5left/right Results Laboratory List Name Date Comprehensive Metabolic Panel (COMP META B PANEL) 07/10/24 Hemoglobin A1C (HEMOGLOBIN, A1C) 07/10/24 Thyroid Stimulating Hormone (TSH) 07/10/24 Most recent to oldest [Reference Range]: 1 eGFR CKD-EPI [>60 mL/min/1.73 m2] 82 mL/ min/1.73 m2 1 (07/10/24 10:47 AM) Estimated Average Glucose 194 mg/dL 2 (07/10/24 10:47 AM) Estimated CrCl 64.67 mL/min (07/10/24 10:47 AM) Anion Gap [5-14 mmol/L] 11 mmol/L (07/10/24 10:47 AM) Alb [3.5-5.0 g/dL] 4.7 g/dL (07/10/24 10:47 AM) Alk Phos [38-126 unit/L] 62 unit/L (07/10/24 10:47 AM) ALT [<35 unit/L] 35 unit/L *HI* (07/10/24 10:47 AM) AST [15-46 unit/L] 53 unit/L *HI* (07/10/24 10:47 AM) BUN [7-20 mg/dL] 14 mg/dL (07/10/24 10:47 AM) Ca [8.4-10.2 mg/dL] 10.1 mg/dL (07/10/24 10:47 AM) Cl- [96-107 mmol/L] 97 mmol/L (07/10/24 10:47 AM) HCO3 [22-30 mmol/L] 30 mmol/L (07/10/24 10:47 AM) Cret [0.60-1.00 mg/dL] 0.73 mg/dL (07/10/24 10:47 AM) HbA1c [4.0-6.0 %] 8.4 % *HI* (07/10/24 10:47 AM) Glu [74-106 mg/dL] 198 mg/dL *HI* (07/10/24 10:47 AM) K [3.5-5.1 mmol/L] 4.1 mmol/L (07/10/24 10:47 AM) Na [137-145 mmol/L] 138 mmol/L (07/10/24 10:47 AM) T Bili [0.2-1.3 mg/dL] 0.6 mg/dL (07/10/24 10:47 AM) Prot [6.3-8.2 g/dL] 7.7 g/dL (07/10/24 10:47 AM) TSH [0.47-4.68 uIU/mL] 3.94 uIU/mL 3 (07/10/24 10:47 AM) 1Result Comment: Testing Performed By: Dept of Pathology [facility], [address] [place] [address] 2Result Comment: Testing Performed By: Dept of Pathology [facility], [address] [place] [address] 3Result Comment: Testing Performed By: Dept of Pathology [facility], [address] [place] [address], [place] [address] Vital Signs Most recent to oldest [Reference Range]: 1 Patient Weight 82.7 kg (07/10/24 9:52 AM) Heart Rate 76 bpm (07/10/24 9:52 AM) Respiratory Rate 18 br/min (07/10/24 9:52 AM) Blood Pressure 132/72mmHg (07/10/24 9:52 AM) Cuff Pulse Pressure 60 mmHg (07/10/24 9:52 AM) Social History Social History Type Response Smoking Status Never smoked cigaret reese Sex Female Sex Representation Female (finding) FCM Outpt Note * MD Zamorano Christopher: MODIFY MD Zamorano Christopher: MODIFY Event Display: FCM Outpt Note Authored Date: [id number] Chief Complaint needs script for simvastatin, F/U on DM, and possible Blood work History of Present Illness Erma is a 83 Y O Female with PMH of Uncontrolled type II DM . Hyperlipidemia, hypothyroidism, HTN, Gout, Asthma, Anxiety and Depression She presented today for 3 months follow up. Denies any fresh complains Diabetes Mellitus Type II -Taking Ozempic 2mg q7days. -Dexcom BS is 242 right now. -Denies increased frequency of urination, thirst, blurry vision. Hypertension -BP on presentation today: 132/72 -Taking Candesartan 16mg and Atenolol 50mg daily -Denies flushing, headache, dizziness and blurry vision Gout -No recent flares -Takes colchicine if needed Hypothyroidism -Takes Levothyroxine 88mcg daily -Denies any symptoms of dysregulation of thyroid Allergy -Chronically using Zyrtec -Allergy manageable with Zyrtec Review of Systems As per HPI Physical Exam Vitals & Measurements HR: 76 (Monitored) RR: 18 BP: 132/72 SpO2: 98% WT: 82.7 kg WT: 82.700 kg (Dosing) PHQ2 Data (Data Documented on:07/10/2024 09:49) Emotional health assessment NEGATIVE General: _Alert and oriented, No acute distress HEENT: _ Normocephalic, TM clear, Nl gross hearing, moist oral mucosa _ Cardiovascular: _Normal rate, Regular rhythm, No murmur, No gallop. Respiratory: _Lungs are clear to auscultation, Respirations are non-labored, Breath sounds are equal Gastrointestinal: _Soft, Non-tender, Non-distended, Normal bowel sounds. Musculoskeletal: _Normal range of motion, normal strength. Neurologic: Normal sensory, Normal motor function Integumentary: _Warm, Dry, [place]. Psych: Mood-affect congruence. Speech is of normal pace and content Assessment/Plan 1. HTN (hypertension) Chronic condition, at goal Goal: SBP<140 DBP<90 Data: _ Plan: -BP on presentation today:132/72 -Taking Candesartan 16mg and Atenolol 50mg daily -Denies flushing, headache, dizziness and blurry vision -Continue same meds. -F/U precautions provided to patient 2. Hx of gout Chronic condition, at goal Goal: Symptoms Control Data: unique tests reviewed: _ Uric acid(10/24/23): 6.7 Plan: -No recent flares -Takes colchicine if needed. -F/U precaution provided 3. Uncontrolled type 2 diabetes mellitus with hyperglycemia Chronic condition not at goal/exacerbated/progressive/side effects of treatment Goal: HBa1c<9 Data: unique tests ordered: _ CMP, HBa1c Plan: -Taking Ozempic 2mg q7days. -Dexcom BS is 242 right now. -Denies increased frequency of urination, thirst, blurry vision. -Hba1c(01/22/24):9.5 -Will add Januvia. Start with 50 mg daily. Will adjust based on lab results -Ordered HBA1C and CMP. Will follow up with lab results -Immediate F/U precautions provided -F/U after 3 months with CMP and Hba1c 4. Hypothyroidism Chronic condition not at goal/exacerbated/progressive/side effects of treatment Goal: Symptoms control, Maintain TSH <1 Data: unique tests ordered: _ Plan: -Takes Levothyroxine 88mcg daily -Denies any symptoms of dysregulation of thyroid -TSH(10/26/23): 3.14 -Ordered TSH and Will F/U with lab results 5. Hyperlipidemia Chronic condition, at goal Goal: TC<200; LDL Cholesterol < 90 Data: unique tests ordered: _ Plan: -Taking Simvastatin 20 mg daily -Denies side effects with Simvastatin. -Lipid profile(10/25): WNL - Refilled simvastatin today Attestation Pt seen and examined in concert with Dr. Meza, agree with history and physical as documented above. Plan reviewed in detail. Any corrections or additions are noted here - follow up for DMII without controlled A1c. Agree w/ adjustment as noted with precautions for worsening/changing symptoms and instructions for follow up. Problem List/Past Medical History Ongoing Anxiety Arthritis [...] 1 refills cranberry(Azo cranberry) cyanocobalamin(Vitamin B12) diabetes supplies([employer] Sensor Kit 4 ct), See Instructions diabetes supplies(Dexcom G7 Sensor), See Instructions, 5 refills estradiol topical(estradiol 0.1 mg/g vaginal cream) fluconazole(fluconazole 150 mg oral tablet), 150 mg= 1 tab, PO, ONCE fluticasone nasal(fluticasone 50 mcg/inh nasal spray), 1 spray, each nostril, Daily levothyroxine(levothyroxine 88 mcg (0.088 mg) oral tablet), [...] mg= 1 tab, PO, Daily, 1 refills triamcinolone topical(triamcinolone 0.1% topical cream), [...] - No Risk Tobacco - No Risk Intake (IView) Smoking History Cigarette smoker: Never smoked cigarettes Tobacco Product Use: Never used other tobacco products Immunizations Vaccine Date Status influenza virus vaccine, inactivated 11/30/2023 Recorded SARS-CoV-2 (COVID-19) mRNA BNT-162b2 vax 01/05/2023 Recorded SARS-CoV-2 mRNA (Pfizer 12+) bivalent 12/15/2021 Recorded SARS-CoV-2 mRNA (tduffyykqmb-ubbs-tcj) 08/25/2021 Recorded SARS-CoV-2 (COVID-19) mRNA-1273 vaccine 12/23/2020 Recorded SARS-CoV-2 (COVID-19) mRNA-1273 vaccine 12/22/2020 Recorded SARS-CoV-2 (COVID-19) mRNA-1273 vaccine 06/17/2020 Recorded SARS-CoV-2 (COVID-19) mRNA-1273 vaccine 04/19/2020 Recorded zoster vaccine, inactivated 04/11/2019 Recorded zoster vaccine, inactivated 02/21/2019 Recorded pneumococcal 23-valent vaccine 02/14/2019 Recorded tetanus/diphtheria/pertuss, acel (Tdap) 02/06/2015 Recorded pneumococcal 13-valent vaccine 08/25/2014 Recorded zoster vaccine live 04/09/2011 Recorded pneumococcal 23-valent vaccine 01/07/2008 Recorded Recommendations Health Maintenance Pending (in the next year) Due Adult Social Determinants of Health Screening due 07/10/24 Unknown Frequency Diabetic Eye Exam due 07/10/24 Unknown Frequency Kidney Health Evaluation due 07/10/24 Unknown Frequency Medicare Annual Wellness Visit due 07/10/24 and every 1 year Osteoporosis Screening due 07/10/24 One-time only Seasonal COVID 19 Vaccine due 07/10/24 Unknown Frequency Due In Future Adult Influenza Vaccine not due until 10/07/24 and every 1 year Satisfied (in the past 1 year) Satisfied Adult Influenza Vaccine on 11/30/23. Satisfied by GAIL Conner Paul Body Mass Index on 02/12/24. Satisfied by NATALIE Joy [place] Breast Cancer Screening on 11/27/23. Satisfied by NATALIE Ortega Lynnae Diabetes Management A1c on 07/10/24. Satisfied by Contributor_system, [id number] Kidney Health Evaluation on 07/10/24. Satisfied by Contributor_system, [email or web address] Lipid Screening on 10/26/23. Satisfied by Contributor_system, [id number] Electronic Signature on File Electronically Reviewed/Signed by: Eitan Meza MD Author Signature Dt/Tm:07/10/2024 01:14 PM Resident Department of Family Medicine Electronically Reviewed/Signed by: Issac Zamorano MD Cosigner Signature Dt/Tm: 07/11/2024 03:55PM Department of Family Medicine [place] Patient Care team information Care Team Personnel Name: ALYCE Medley Christina L Position: Physician - Podiatry Member Role: Primary Care Provider Address: [address] [place] [address] Telecom: [phone] Care Team Related Persons Name: CRISTHIAN NOBLES Insurance Providers Guarantor name: ERMA NOBLES Health Plan Information #: 1 Payer: [email or web address] PPO Member Number: [id number] Policy Number: NA Group Number: [id number] Health Plan Information #: 2 Payer: [employer] PPO Member Number: [id number] Policy Number: NA Group Number: [id number]"
--- OUTSIDE RECORDS SUMMARY | 2024-08-15 12:12 | External Medical Summary | Continuity of Care Document ---
Author Name Unknown Organization [facility] [address] [facility] [address] [place] [address] [phone] Care Team Providers Care Astronautical Engineer Name Role Phone Chiara Medley Primary Care Physician [phone] [facility] [id number] Date(s): 07/15/24 - 07/15/24 [facility] [address] [facility] 207 [facility] [place] [id number] [facility] 207 [place] [address] [phone] Encounter Diagnosis Uncontrolled type 2 diabetes mellitus with hyperglycemia(Discharge Diagnosis) - 07/15/24 Discharge Disposition: Home or Self Care Attending Physician: DO Sawyer Franklin J Encounter Type: Clinic Allergies, Adverse Reactions, Alerts [...] in Search 1 unknown Active 1all steroids Immunizations Given and Recorded Vaccine Date Status Refusal Reason influenza virus vaccine, inactivated 11/30/23 Sina rded SARS-CoV-2 (COVID-19) mRNA BNT-162b2 vax 01/05/23 Recorded SARS-CoV-2 mRNA (Pfizer 12+) bivalent 12/15/21 Rec orded SARS-CoV-2 mRNA (zeafvmfzmss-xkut-vit) 08/25/21 Re corded SARS-CoV-2 (COVID-19) mRNA-1273 vaccine [...] zoster vaccine live 04/09/11 Recorded Mental Status 07/15/24 Barriers to Learning one year None evide nt Mandatory Health Literacy Documentation Yes Health Literacy Communication Barriers N ever Primary Language Romanian Problem List Condition Confirmation Course Effective Dates [...] Effective Dates Health Status Clinical Service Informant Uncontrolled type 2 diabetes mellitus with hyperglycemia Discharge Diagnosis 07/15/24 Non-Specified Procedures Procedure Date Related Diagnosis Body [...] in R hip 2heart and lungs 3[facility] Impression: 1. Degenerative changes as described with mild anterior subluxation of C4 on C5 likely arthritic. No evidence for acute fracture or dislocation 4[facility] Impression: 1. No acute fractures 2. Calcific tendinitis 5left/right Vital Signs Most recent to oldest [Reference Range]: 1 Heart Rate 79 bpm (07/15/24 12:39 PM) Respiratory Rate 18 br/min (07/15/24 12:39 PM) Blood Pressure 140/82mmHg (07/15/24 12:39 PM) Cuff Pulse Pressure 58 mmHg (07/15/24 12:39 PM) Social History Social History Type Response Smoking Status Never smoked cigaret reese Sex Female Sex Representation Female (finding) Patient Care team information Care Team Personnel Name: ALYCE Medley Christina L Position: Physician - Podiatry Member Role: Primary Care Provider Address: [address] [place] [address] Telecom: [phone] Care Team Related Persons Name: CRISTHIAN NOBLES Insurance Providers Guarantor name: JOIE NOBLES Health Plan Information #: 1 Payer: [employer] PPO Member Number: [id number] Policy Number: NA Group Number: [id number] Health Plan Information #: 2 Payer: [employer] PPO Member Number: [id number] Policy Number: NA Group Number: NA
--- OUTSIDE RECORDS SUMMARY | 2024-08-15 12:12 | External Medical Summary | Continuity of Care Document ---
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 [address] [place] [id number] [id number] [phone] Encounter Diagnosis Body mass index [BMI] 28.0-28.9, adult(Discharge Diagnosis) - 07/25/24 Uncontrolled type 2 diabetes mellitus with hyperglycemia(Discharge Diagnosis) - 07/25/24 Hypothyroidism(Discharge Diagnosis) - 07/25/24 Transaminitis(Discharge Diagnosis) - 07/25/24 Discharge Disposition: Home or Self Care Attending Physician: MD Zamorano Christopher Encounter Type: Clinic Allergies, Adverse Reactions, Alerts [...] 1all steroids Assessment and Plan Extracted from: Title:FCM - DM Author:MD Warner Margaret Date :07/25/24 1. Uncontrolled type 2 diab etes mellitus with hyperglycemia Chronic condition not at goal/exacerbated/progressive/side effects of treatment Goal: HbA1c < 8.5%, avoiding polypharmacy Data: unique tests reviewed: _HbA1c, TSH, CMP Plan: With patient's age, her goal HbA1c would be < 8.5%, ideally closer to 8%. Did review patient's labs including TSH. Her TSH is suboptimal which is likely contributing to her poor blood sugar control. Would stop insulin as her HbA1c is acceptable at this time. Will increase levothyroxine to 100 mcg daily. Will check in with patient in a few weeks to access blood sugar response. If persistently in the 200s-300s would restart Januvia at 50 mg. We will need to repeat labs in about 3 months - TSH and HbA1c. Will have patient f/u in a month, sooner if needed. 2. Hypothyroidism Chronic condition not at goal/exacerbated/progressive/side effects of treatment Goal: TSH ~ 2 Data: unique tests ordered: _TSH Plan: Adjusting levothyroxine as above. 3. Transaminitis Undifferentiated new problem with uncertain prognosis Goal: Resolution Data: _ Plan: I do not see any prior work up for transaminitis. Would consider. Immunizations Given and Recorded Vaccine Date Status Refusal Reason influenza virus vaccine, inactivated 11/30/23 Sina rded SARS-CoV-2 (COVID-19) mRNA [id number] vax 01/05/23 Recorded SARS-CoV-2 mRNA (Pfizer 12+) bivalent 12/15/21 Rec orded SARS-CoV-2 mRNA ([id number]) 08/25/21 Re corded SARS-CoV-2 (COVID-19) mRNA-1273 vaccine [...] to a full tablet as tolerated, Pharmacy: [facility]/pharmacy #[id number] Start Date: 11/25/21 Stop Date: 03/25/22 Status: Ordered Quantity: 30.0 Unit: tab Repeat number: 4 Indications: Radiculopathy, sacral and sacrococcygeal region; aspirin 81 mg oral capsule Start: 09/14/21 9:06:00 AM EDT Start Date: 09/14/21 Status: Ordered Repeat number: 1 atenolol 50 mg oral tablet Start: 07/10/24 11:03:00 AM EDT, 1 tab, PO, Daily, Disp# 30 tab, Refills: 2, Pharmacy: [facility]/pharmacy #[id number] Start Date: 07/10/24 Status: Ordered Quantity: [...] PRN: as needed for gout pain, Pharmacy: [facility]/pharmacy #[id number] Start Date: 01/09/23 Stop Date: 01/21/23 Status: Ordered Quantity: 10.0 Unit: tab Repeat number: 2 Indications: Type 2 diabetes mellitus without complications; Juvenile osteochondrosis of tarsus, left ankle; Achilles tendinitis, left leg; Gout, unspecified; Achilles tendinitis, left leg; DEXCOM G7 SENSOR Start: 01/21/24 11:39:00 AM EDT, DEXCOM G7 SENSOR, See Instructions, Disp# 3 unknown unit, Refills:1, CHANGE SENSOR EVERY 10 DAYS, Pharmacy [id number] Start Date: 01/21/24 Status: Ordered Quantity: 3.0 Unit: unknown unit Repeat number: 1 Dexcom G7 Sensor Start: 03/26/24 12:53:00 PM EST, See Instructions, Disp# 3 kit, Refills: 5, Change sensor every 10 days, [id number] Start Date: 03/26/24 Status: Ordered Quantity: 3.0 Unit: kit Repeat number: 6 Indications: Type 2 diabetes mellitus with hyperglycemia; Dexcom Sensor Kit 4 ct Start: 07/10/23 9:25:00 AM EDT, See Instructions, Disp# 1 each, Use as directed, [id number] Start Date: 07/10/23 Status: Ordered Quantity: [...] after 5 days, may repeat dose., Pharmacy: [facility]/pharmacy #[id number] Start Date: 07/10/23 Status: Ordered Quantity: 2.0 Unit: tab Repeat number: 1 fluticasone 50 mcg/inh nasal spray Start: 09/14/21 9:04:00 AM EDT, 1 spray, each nostril, Daily Start Date: 09/14/21 Status: Ordered Repeat number: 1 glucagon 1 mg injection Start: 07/19/24 3:07:00 PM EDT, 1 mg =, IM, ONCE, Disp# 2 pen_needle, Refills: 1, Pharmacy: [facility] Start Date: 07/19/24 Status: Ordered Quantity: 2.0 Unit: Repeat number: 2 levothyroxine 100 mcg (0.1 mg) oral tablet Start: 07/25/24 4:34:00 PM EDT, 1 tab, PO, Daily, Disp# 30 tab, Refills: 1, Pharmacy: [facility] Start Date: 07/25/24 Stop Date: 09/23/24 Status: Ordered Quantity: 30.0 Unit: tab Repeat number: 2 montelukast 10 mg oral tablet Start: 09/10/19 9:03:00 AM EDT Start Date: 09/10/19 Status: Ordered Repeat number: 1 Osteo Bi-Flex Start: 08/28/13 8:52:00 AM EDT, 1 tab, PO, Daily Start Date: 08/28/13 Status: Ordered Repeat number: 1 Ozempic (2 mg dose) 8 mg/3 mL subQ pen Start: 06/16/24 9:31:00 AM EDT, 2 mg =, subQ, q7days, Disp# 3 unknown unit, Refills: 0, Pharmacy: [id number] Start Date: 06/16/24 Status: Ordered Quantity: 3.0 Unit: unknown unit Repeat number: 1 Symbicort 80 mcg-4.5 mcg/inh inhalation aerosol Start: 09/10/19 9:03:00 AM EDT Start Date: 09/10/19 Status: Ordered Repeat number: 1 triamcinolone 0.1% topical cream Start: 09/13/20 9:12:00 AM EDT, 1 appl, topical, bid, Disp# 80 g, Refills: 3, [id number] Start Date: 09/13/20 Status: Ordered Quantity: 80.0 Unit: g Repeat number: 4 UltiCare Pen Needle 32G x 4mm Start: 07/16/24 3:00:00 PM EDT, See Instructions, Disp# 30 pen_needle, Refills: 1, Once daily injection, Note to Pharmacy: may substitute, Pharmacy: [facility]/pharmacy #[id number] Start Date: 07/16/24 Status: Ordered Quantity: 30.0 Unit: Repeat number: 2 Vitamin B12 Start: 09/14/21 9:06:00 AM EDT Start Date: 09/14/21 Status: Ordered Repeat number: 1 Zocor 20 mg oral tablet Start: 07/10/24 10:44:00 AM EDT, 1 tab, PO, qhs, Disp# 90 tab, Refills: 1, Pharmacy: [facility] Start Date: 07/10/24 Stop Date: 01/06/25 Status: Ordered Quantity: 90.0 Unit: tab Repeat number: 2 ZyrTEC Start: 08/24/17 8:54:00 AM EDT Start Date: 08/24/17 Status: Ordered Repeat number: 1 Mental Status 07/25/24 Barriers to Learning one year None evide nt Mandatory Health Literacy Documentation Yes Health Literacy Communication Barriers N ever Primary Language Slovenian Problem List Condition Confirmation Course Effective Dates Status H ealth Status Informant Anxiety Confirmed Active Arthritis Confirmed Active Depression Confirmed Active Transaminitis Confirmed Active Gout Confirmed Active Hyperlipidemia Confirmed Active HTN (hypertension) Confirmed Active Hypothyroidism Confirmed Active Mild persistent asthma Confirmed Active 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 Uncontrolled type 2 diabetes mellitus with hyperglycemia Confirmed Active Diagnosis Diagnosis Type Effective Dates Health Status Clinical Service Informant Body mass index [BMI] 28.0-28.9, adult Discharge Diagnosis 07/25/24 Non-Specified Uncontrolled type 2 diabetes mellitus with hyperglycemia Discharge Diagnosis 07/25/24 Non-Specified Transaminitis Discharge Diagnosis 07/25/24 Non-Specified Hypothyroidism Discharge Diagnosis 07/25/24 Non-Specified Procedures Procedure Date Related Diagnosis Body [...] [facility] R hip 2[facility]: 1. Degenerative changes as described with mild anterior subluxation of C4 on C5 likely arthritic. No evidence for acute fracture or dislocation [facility] Impression: 1. No acute fractures 2. Calcific tendinitis 5left/right Vital Signs Most recent to oldest [Reference Range]: 1 Height 170.4 cm (07/25/24 3:48 PM) Patient Weight 82.6 kg (07/25/24 3:48 PM) Body Mass Index 28.45 kg/m2 (07/25/24 3:48 PM) Temperature [36.5-37.9 DegC] 36.8 DegC (07/25/24 3:48 PM) Heart Rate 93 bpm (07/25/24 3:48 PM) Respiratory Rate 18 br/min (07/25/24 3:48 PM) Blood Pressure 126/78mmHg (07/25/24 3:48 PM) Cuff Pulse Pressure 48 mmHg (07/25/24 3:48 PM) Social History Social History Type Response Smoking Status Never smoked cigaret reese Sex Female Sex Representation Female (finding) FCM Outpt Note * MD Timmy, Bhumika: PERFORM DO Leach Allison B: MODIFY Event Display: FCM Outpt Note Authored Date: [id number] Assessment/Plan 1. Uncontrolled type 2 diabetes mellitus with hyperglycemia Chronic condition not at goal/exacerbated/progressive/side effects of treatment Goal: HbA1c < 8.5%, avoiding polypharmacy Data: unique tests reviewed: _HbA1c, TSH, CMP Plan: With patient's age, her goal HbA1c would be < 8.5%, ideally closer to 8%. Did review patient's labs including TSH. Her TSH is suboptimal which is likely contributing to her poor blood sugar control. Would stop insulin as her HbA1c is acceptable at this time. Will increase levothyroxine to 100 mcg daily. Will check in with patient in a few weeks to access blood sugar response. If persistently in the 200s-300s would restart Januvia at 50 mg. We will need to repeat labs in about 3 months - TSH and HbA1c. Will have patient f/u in a month, sooner if needed. 2. Hypothyroidism Chronic condition not at goal/exacerbated/progressive/side effects of treatment Goal: TSH ~ 2 Data: unique tests ordered: _TSH Plan: Adjusting levothyroxine as above. 3. Transaminitis Undifferentiated new problem with uncertain prognosis Goal: Resolution Data: _ Plan: I do not see any prior work up for transaminitis. Would consider. Attestation Patient's case reviewed in detail with Dr. Huitron, agree with detail of history and physical as documented above. Plan reviewed in detail with providing resident physician. Patient is stressed with new medication changes. Will adjust Synthroid and then determine need for further medication. Will get her set up with DM educator. Chief Complaint 1 week follow up on new medication. History of Present Illness 83 y/o here for a one week follow up. Patient has had multiple medication changes in the last two weeks. Patient was initially started onJanuvia. She took one dose of this and then came for her f/u appointment. At that time she was started on insulin and the Januvia. Patient has been on insulin for the last week or so. No side effects or concerns with use. She is still on Ozempic 2 mg weekly. Patient does express some frustration with all the changes. Patient did not tolerate metformin or Jardiance. Physical Exam Vitals & Measurements T: 36.8 °C HR: 93 (Monitored) RR: 18 BP: 126/78 SpO2: 93% HT: 170.4 cm WT: 82.600 kg (Dosing) WT: 82.6 kg BMI: 28.45 PHQ2 Data (Data Documented on:07/25/2024 15:48) Emotional health assessment NEGATIVE Gen: well appearing patient in NAD HEENT: AT NC CV: RRR no m/r/g clinically well perfused Resp: CTAB no wheezing no increased work of breathing Abd: non-distended MSK: no obvious deformities Skin: no bruising or rashes noted Psych: appropriate mood and affect Neuro: alert and oriented Problem List/Past Medical History Ongoing Anxiety Arthritis Depression Gout Mohamud's deformity of left heel HTN (hypertension) Hyperlipidemia Hypothyroidism Mild persistent asthma Transaminitis Uncontrolled type 2 diabetes mellitus with hyperglycemia Procedure/Surgical History •Shave biopsy of skin| Service Date: 07/21/2024•Procedure| Service Date: 11/02/2022•Punch biopsy of skin| Service Date: 10/27/2021•Stress test treadmill| Service Date: 06/08/2018•EKG| Service Date: 06/08/2018•MRI| Service Date: 05/10/2018•Right shoulder x-ray| Service Date: 11/15/2015•C- spine x-ray| Service Date: 11/15/2015•Appendectomy| Service Date: 1994•Cataract•Extraction [...] injection), 1 mg, IM, ONCE, 1 refills levothyroxine(levothyroxine 100 mcg (0.1 mg) oral tablet), 100 mcg= 1 tab, PO, Daily, 1 refills montelukast(montelukast 10 mg oral tablet) multivitamin with minerals(Centrum Silver Women's oral tablet), 1 tab, PO, Daily semaglutide(Ozempic (2 mg dose) 8 mg/3 mL subQ pen), 2 mg, subQ, q7days simvastatin(Zocor 20 mg oral tablet), 20 mg= 1 tab, PO, qhs, 1 refills syringe needles(UltiCare Pen Needle 32G [...] (Pfizer 12+) bivalent 12/15/2021 Recorded SARS-CoV-2 mRNA ([id number]) 08/25/2021 Recorded SARS-CoV-2 (COVID-19) mRNA-1273 vaccine 12/23/2020 [...] Adult Social Determinants of Health Screening due 07/25/24 Unknown Frequency Diabetic Eye Exam due 07/25/24 Unknown Frequency Kidney Health Evaluation due 07/25/24 Unknown Frequency Medicare Annual Wellness Visit due 07/25/24 and every 1 year Osteoporosis Screening due 07/25/24 One-time only Seasonal COVID 19 Vaccine due 07/25/24 Unknown Frequency Due In Future Adult Influenza Vaccine not due until 10/07/24 and every 1 year Diabetes Management A1c not due until 07/11/25 and every 366 day Satisfied (in the past 1 year) Satisfied Adult Influenza Vaccine on 11/30/23. Satisfied by GAIL Conner Paul Body Mass Index on 07/25/24. Satisfied by GAIL Escamilla Carolyn Breast Cancer Screening on 11/27/23. Satisfied by NATALIE Ortega Lynnae Diabetes Management A1c on 07/10/24. Satisfied by Contributor_system, [id number] Kidney Health Evaluation on 07/10/24. Satisfied by Contributor_system, [id number] Lipid Screening on 10/26/23. Satisfied by Contributor_system, [id number] Electronic Signature on File Electronically Reviewed/Signed by: Bhumika Warner MD Author Signature Dt/Tm:07/25/2024 05:24 PM Resident Department of Family Medicine Electronically Reviewed/Signed by: Emma Leach DO Cosigncolleen Signature Dt/Tm: 07/25/2024 05:30 PM Department of Family Medicine MP Patient Care team information Care Team Personnel Name: DO Alonzo Gretchen Elizabeth Position: Physician - Family Med Member Role: Primary Care Provider Address: [address] [place] [address] Telecom: [phone] Care Team Related Persons Name: CRISTHIAN NOBLES Insurance Providers Guarantor name: JOIE NOBLES Health Plan Information #: 1 Payer: [employer] P[employer] Member Number: [id number] Policy Number: NA Group Number: [id number] Payer Identifier: [id number] Health Plan Information #: 2 Payer: [employer] P[employer] Member Number: [id number] Policy Number: NA Group Number: [id number] Payer Identifier: [id number]"
[2024-08-15] MEDS: MAGNESIUM SULFATE / D5W 1 GM/100 ML BAG IV SCH (13:24)
--- NOTE | 2024-08-15 13:31 | Cardiology Consultation ---
Date of Consultation August 15, 2024 Assessment & Plan (1) CHB (complete heart block): (2) Essential hypertension: Plan ASSESSMENT/PLAN: 1. Complete heart block: Asymptomatic while in bed with adequate blood pressure (normotensive to mildly hypertensive). Last dose of atenolol was on 08/15/2019 5 in the AM. Discontinue beta-amaury. Avoid any AV kavon blockers. Lyme screen negative. Transcutaneous pacer pads in place. Utilize transcutaneous pacing as needed for symptomatic bradycardia, and could also consider atropine or dopamine. These therapies are not necessary at this time. No temporary transvenous pacemaker at this time as she is stable and asymptomatic while in bed. Continue bedrest, which was discussed with the patient, to avoid injury with falls/syncope/near syncope. Recommend echo (pending). She will be evaluated by Dr. Solorio of electrophysiology tomorrow for planning for permanent pacemaker placement. Discussed with patient and she is agreeable to pacemaker. 2. Hypertension: Mostly normotensive with occasional mild hypertension. Allow for some degree of hypertension given heart block with bradycardia. Discontinue atenolol. 3. Disposition: Dr. Solorio of electrophysiology will round tomorrow and will be covering after 5 PM today. Patient discussed with Dr. Solorio and communicated with primary hospitalist service, Erika Samson, as well as ER provider, Dr. Sorenson. Highly complex medical issues. Thank you for allowing me to participate in the care of your patient. Please call for any other questions or concerns. Sincerely, Noah Mendes M.D. History of Present Illness Reason for Consultation: Complete Heart Block Requesting Physician: Rodrigo Sorenson MD Attending Physician: Dr. Max History of Present Illness Mrs. Cole is a very pleasant 83-year-old female with a history significant for type 2 diabetes, hypertension, dyslipidemia, hypothyroidism, and asthma. She was seen in the past in the outpatient setting by Dr. Solorio and Emma Santoyo PA-C. She presented to the ER on 08/15/2024 with near syncope and bradycardia. After she woke up, ate breakfast, and drank her coffee, she was standing and became woozy/lightheaded with near syncope. She sat down and the symptoms persisted. She checked a pulse oximeter and noted that her heart rate was 37 to 38 bpm. This prompted ER visit. She was noted to be in complete heart block and her blood pressure has been mostly normotensive and on occasion mildly hypertensive. She does not recall any recent tick bites and she watches for these closely. She denies any fever, chills, rash, syncope, palpitations, chest pain, shortness of breath, melena, hematochezia, hematuria, or edema. Review of systems: As above. Family history: Noncontributory. Social history: She denies tobacco, alcohol, drug abuse. She lives at home with her . She has 3 adult children. She was unaccompanied. Allergies Allergy/AdvReac Type Severity Reaction Status Date / Time prednisone Allergy Severe ITCHY, RED Verified 01/28/24 10:54 sulfite Allergy Severe RASH/REDDENED/THROAT Verified 01/28/24 10:54 CLOSES codeine Allergy Mild RASH Verified 01/28/24 10:54 monosodium glutamate Allergy Mild itchy, rash Verified 01/28/24 10:54 pollen extracts Allergy Unknown SEASONAL Verified 01/28/24 10:54 ALLERGIES TREES Allergy Unknown SEASONAL Uncoded 01/28/24 10:54 ALLERGIES WEEDS Allergy Unknown SEASONAL Uncoded 01/28/24 10:54 ALLERGIES Home Medications Medication Instructions Recorded Confirmed Type calcium 315 mg (as 1 tab PO QAM 10/29/18 08/15/24 History citrate)-vitamin D3 6.25 mcg (250 unit) tablet (Citracal + Vitamin D Maximum) carboxymethylcellulose sodium 0.25 2 drops ophthalmic (eye) DAILY PRN 10/29/18 08/15/24 History % eye drops Dry Eye(S) fluticasone propionate 50 1 spray intranasal QPM 10/29/18 08/15/24 History mcg/actuation nasal spray,suspension glucosamine-chondroitin 250 mg-200 2 tab PO QAM 10/29/18 08/15/24 History mg tablet multivitamin (Daily Multi-Vitamin 1 tab PO QPM 10/29/18 08/15/24 History tablet) aspirin 81 mg tablet,delayed 81 mg PO HS 02/18/19 08/15/24 History release cyanocobalamin (vitamin B-12) 1,000 mcg PO QAM 02/18/19 08/15/24 History 1,000 mcg tablet (Vitamin B-12) colchicine 0.6 mg tablet 0.6 mg PO BID PRN gout flare up 09/22/22 08/15/24 Rx #90 tabs atenolol 50 mg tablet 50 mg PO QAM #90 tabs 02/27/23 08/15/24 Rx simvastatin 20 mg tablet 20 mg PO QPM #90 tabs 02/27/23 08/15/24 Rx albuterol sulfate 90 mcg/actuation 2 puff inhalation Q4H PRN 08/15/23 08/15/24 Rx aerosol inhaler (ProAir HFA) shortness of breath or wheezing #1 inhaler montelukast 10 mg tablet 10 mg PO HS #100 tabs 08/15/23 08/15/24 Rx budesonide-formoterol HFA 80 2 inh inhalation BID PRN sob 08/15/24 08/15/24 History mcg-4.5 mcg/actuation aerosol inhaler candesartan 16 mg tablet 16 mg PO DAILY 08/15/24 08/15/24 History glucagon 1 mg solution for 1 mg subcut DIRECTED PRN 08/15/24 08/15/24 History injection (Glucagon Emergency Kit) Hypoglycemia levothyroxine 150 mcg tablet 100 mcg PO DAILY 08/15/24 08/15/24 History semaglutide 2 mg/dose (8 mg/3 mL) 2 mg subcut WK 08/15/24 08/15/24 History subcutaneous pen injector (Ozempic) Problem List (Updated 08/15/24 @ 12:58 by Background Mara) CHB (complete heart block) (Acute) Mild persistent asthma, uncomplicated Right hip pain Dyspareunia, female Elevated vitamin B12 level Diabetes mellitus type 2, uncontrolled Ankle pain Asthma inhalers daily/prn Degenerative cervical disc Gout Allergic rhinitis Nocturnal hypoxemia Reactive airway disease Complex sleep apnea syndrome Essential hypertension (Acute) Hypercholesterolemia (Acute) Hypothyroidism (Acute) Tachycardia (Acute) follows with Dr. Solorio Type 2 diabetes mellitus (Acute) Patient History Medical History (Updated 08/15/24 @ 12:58 by Background Mara) Fracture of distal end of left fibula Surgical History History of colonoscopy with polypectomy (~2013) History of tooth extraction History of wisdom tooth extraction History of bilateral cataract extraction S/P dilation and curettage S/P appendectomy Family History Son Asthma Grandmother (Maternal) Breast cancer No family history of adverse response to anesthesia Aunt Breast cancer Mother Heart disease Family history of diabetes mellitus Father Liver cancer Kidney malignancy Grandmother (Paternal) No family history of adverse response to anesthesia Grandfather (Maternal) Myocardial infarction Denies family history of Ovarian cancer Prostate cancer Colorectal cancer Social History Smoking Status: Never smoker Second Hand Exposure: Yes (father smoked); Do You Dip or Chew Tobacco: No; Hx Alcohol Use: Yes Hx Substance Use: No Preferred Language: Danish Communication Ability: Effective Visual Impairment: No Limitations Hearing Ability: Normal Project Analyst Required: No Beliefs That Will Affect Care: None marital status: Current Living Situation: Spouse current occupational status: retired Feels Safe at Home: Yes Childhood Exposure to Second-Hand Smoke: Yes Dental Care, Regularly: Yes Physical Activity Frequency: Daily Seatbelt Use: always Sunscreen Use: Yes Assistive Devices: CPAP Physical Exam Physical Exam: Gen.: No acute distress. Alert and oriented. HEENT: Anicteric sclera. Neck: No JVD. No bruits. Normal carotid upstrokes bilaterally. Cardiac: Regular and bradycardic near 40 bpm. Distant S1-S2. No murmurs, rubs, or gallops. Pulmonary: Clear to auscultation bilaterally without wheezes, rales, or rhonchi. Abdomen: Soft, nontender, nondistended, with normoactive bowel sounds. No bruits noted. Extremities: 2+ radial pulses bilaterally. 2+ posterior tibialis pulses bilaterally. No edema or cyanosis. Results & Data Vital Signs (Past 12 Hours) Vital Signs Temp Pulse Resp BP Pulse Ox O2 Del Method 08/15/24 12:31 145/73 H 08/15/24 12:15 47 L 12 97 08/15/24 12:12 37 L 14 97 08/15/24 12:06 38 L 17 97 08/15/24 12:00 123/69 08/15/24 12:00 123/69 08/15/24 11:38 Room Air 08/15/24 11:33 44 L 16 117/60 96 08/15/24 11:30 117/60 08/15/24 11:30 117/60 08/15/24 11:30 117/60 08/15/24 11:21 38 L 17 96 08/15/24 11:12 46 L 22 95 08/15/24 11:03 19 08/15/24 11:02 39 L 08/15/24 10:51 38 L 11 L 95 08/15/24 10:42 39 L 10 L 97 08/15/24 10:33 40 L 12 96 08/15/24 10:27 36.6 C 40 L 18 134/72 98 Room Air Laboratory Results Laboratory Results - last 24 hr 08/15/24 10:38 WBC 7.18 RBC 4.82 Hgb 13.9 Hct 40.7 MCV 84.4 MCH 28.8 MCHC 34.2 RDW Std Deviation 38.8 RDW Coeff of Danielle 12.8 Plt Count 218 MPV 9.6 Immature Gran % (Auto) 0.1 Neut % (Auto) 50.8 Lymph % (Auto) 38.6 [place] % (Auto) 6.4 Eos % (Auto) 3.3 Baso % (Auto) 0.8 Neut # (Auto) 3.64 Lymph # (Auto) 2.77 [place] # (Auto) 0.46 Eos # (Auto) 0.24 Baso # (Auto) 0.06 Immature Gran # (Auto) 0.01 PT 10.9 INR 1.0 APTT 26 PTT Ratio 1.0 Sodium 135 L Potassium 4.0 Chloride 99 Carbon Dioxide 27 Anion Gap 9 BUN 11 Creatinine 0.95 Est Cr Clr Drug Dosing 48.0 eGFR 59.45 BUN/Creatinine Ratio 11.6 Glucose 283 H Calcium 9.6 Magnesium 1.8 Total Bilirubin 0.5 AST 28 ALT 24 Alkaline Phosphatase 61 Troponin I High Sens 4.4 Total Protein 7.6 Albumin 4.3 Globulin 3.3 Albumin/Globulin Ratio 1.3 TSH 5.720 H Free T4 1.16 Lyme Disease Screen Negative Diagnostic Findings Labs reviewed and notable for normal potassium, normal magnesium, mildly elevated TSH, normal transaminase levels, stable renal function, normal potassium, normal blood counts, normal free T4, Lyme disease screen negative. ECG personally reviewed 08/15/2024: Sinus with complete heart block. Ventricular rate 48 bpm. Ventricular escape rhythm with RBBB pattern. Chest x-ray 08/15/2024: Mild stranding left base per radiology. Mild pulmonary vascular congestion per radiology. Chest x-ray image personally reviewed: No infiltrate. Medications Administered Current Inpatient Medications Magnesium Sulfate/Dextrose (Magnesium Sulfate / D5w) 1 gm in 100 mls @ 50 mls/hr IV Q2H JESSIKA Stop: 08/15/24 17:14 Last Admin: 08/15/24 13:24 Dose: 50 mls/hr PG Care Time/CCT Total # of Minutes Spent Total Time Spent with Patient: Total time spent is greater than 50% in coordination of care (as documented) at patient's floor/unit and/or counseling patient: Coding Level of Care Code 89029 INT INP/OBS CARE 3/75MIN Diagnoses CHB (complete heart block) I44.2 Essential hypertension I10
[2024-08-15] MEDS ORDERED: GLUCOSE 40% GEL 15 GM TUBE PO PRN (15:14)
[2024-08-15] MEDS ORDERED: CARBOHYDRATES FOR HYPOGLYCEMIA PO PRN (15:14)
[2024-08-15] MEDS ORDERED: GLUCAGON FOR INJ 1 MG VIAL SQ PRN (15:14)
[2024-08-15] MEDS ORDERED: GLUCOSE 10 TAB/TUBE PO PRN (15:14)
[2024-08-15] MEDS ORDERED: DEXTROSE 50% 50 ML SYRINGE IV PRN (15:14)
[2024-08-15] MEDS ORDERED: ALBUTEROL HFA 8 GM INHALER INH PRN (15:14)
[2024-08-15] MEDS ORDERED: FLUTICASONE/VILANTEROL 100/25MCG 14 PUFFS/INHALER INH PRN (15:30)
[2024-08-15] MEDS: INSULIN ASPART PER UNIT CHARGE SC SCH (17:09)
--- NOTE | 2024-08-15 19:58 | XCELERA ---
[id number]
[2024-08-15] MEDS: ASPIRIN 81 MG ECTAB PO SCH (20:26)
[2024-08-15] MEDS: MULTIVITAMIN TAB PO SCH (20:26)
[2024-08-15] MEDS: FLUTICASONE PROPIONATE NA SPR 16 GM BTL SCH (20:26)
[2024-08-15] MEDS: MONTELUKAST SODIUM 10 MG TABLET PO SCH (20:27)
[2024-08-15] MEDS: SIMVASTATIN 20 MG TAB PO SCH (20:27)
[2024-08-15 20:34] LABS: Appearance Urine Clear (Clear); Bacteria Urine Automated None Seen (None Seen); Bilirubin Urine 1+ (Negative); Blood Urine Negative (Negative); Color Urine Dark Yellow; Epithelial Cell Urine Auto 0-2 /hpf (0-2); Glucose Urine UA Trace (Negative); Ketones Urine Trace (Negative); Leukocyte Esterase Urine 2+ (Negative); Nitrite Urine Negative (Negative); Protein Urine Trace (Negative); RBC Urine Automated 0-2 /hpf (0-2); Specific Gravity Urine 1.017 (1.000-1.030); Urobilinogen Urine Negative (Negative); pH Urine 5.5 (4.5-7.5)
--- NOTE | 2024-08-16 03:59 | Electrocardiogram Report ---
Test Reason : Blood Pressure : */* mmHG Vent. Rate : 40 BPM Atrial Rate : 105 BPM P-R Int : * ms QRS Dur : 126 ms QT Int : 474 ms P-R-T Axes : 38 -26 18 degrees QTcB Int : 386 ms Sinus tachycardia with complete heart block and ventricular escape rhythm Right bundle branch block Possible Anterolateral infarct , age undetermined Abnormal ECG When compared with ECG of 30-Oct-2017 10:37, Complete heart block is now present Right bundle branch block is now Present Confirmed by Kali Mendes ([id number]) on 08/16/2024 3:59:18 AM Referred By: REFERRED SELF Confirmed By: Kali Mendes
[2024-08-16] MEDS: LEVOTHYROXINE SODIUM 100 MCG TABLET PO SCH (06:01)
[2024-08-16 07:20] LABS: Estimated Average Glucose 212 mg/dl
[2024-08-16 07:25] LABS: BUN Creatinine Ratio 15.5 (10-20); Calcium 9.6 mg/dl (8.6-10.3); Creatinine Clr Calc Pharmacy 35.8 ml/min; Magnesium 2.1 mg/dl (1.7-2.4); Potassium 4.4 mmol/L (3.5-5.1)
[2024-08-16] MEDS: LANTUS PER UNIT CHARGE SQ SCH (08:50)
[2024-08-16] MEDS: LOSARTAN POTASSIUM 50 MG TAB PO SCH (08:52)
[2024-08-16] MEDS ORDERED: LANTUS PER UNIT CHARGE SQ SCH (09:00)
--- NOTE | 2024-08-16 09:09 | Cardiology Progress Note ---
Date of Service August 16, 2024 Assessment & Plan (1) CHB (complete heart block): (2) Essential hypertension: (3) Mitral regurgitation: Plan ASSESSMENT/PLAN: 1. Complete heart block: Presumably age-related degeneration. Asymptomatic with a junctional escape rhythm. Unfortunately, we will plan on an implant Sunday morning due to staffing constraints. In the event she has any additional symptoms or becomes hemodynamically unstable we can take her to the lab for temporary transvenous device while we wait for an opportunity to implant a permanent device on Sunday. She should continue on bedrest. Will continue to hold beta-blockade. 2. Hypertension: Mostly normotensive with occasional mild hypertension. Allow for some degree of hypertension given heart block with bradycardia. Atenolol discontinued 3. Mitral regurgitation: Mild. Not likely to be a clinical concern in the course of her lifetime. Admission and Anticipated Discharge Date Admission Date: August 15, 2024 Subjective This morning patient clinically feeling well. She had some difficulty sleeping overnight as she felt cold. She was following instructions and has not been out of bed. As result she has not experienced significant dizziness, breathing trouble or palpitations. Review of Systems Review of Systems: Per HPI Physical Exam Physical Exam: She is alert and oriented x3. Mood affect appear normal. She answered all questions appropriately. HEENT: Sclerae are anicteric. Pupils are equal and reactive to light and accommodation. Extraocular movements were intact. Neuro: Cranial nerves intact Lungs: Lungs are clear to auscultation bilaterally. There are no rales wheezes or rhonchi. She has normal respiratory effort without use of accessory muscles. There is normal pulmonary excursion. Cardiac: The rhythm was regular but slow. S1 and S2 were normal. Soft systolic murmur. The PMI was not markedly displaced on palpation. Extremities: Patient has bilateral radial pulses that are equal in intensity. There is no evidence cyanosis or clubbing. There was no evidence of significant peripheral edema bilaterally. Skin: There are no rashes noted on examination today. Results & Data Vital Signs (Past 12 Hours) Vital Signs Temp Pulse Pulse Resp BP Pulse Ox O2 Del Method 08/16/24 08:03 36.8 C 37 L 20 101/54 L 91 Room Air 08/16/24 03:06 36.6 C 45 L 18 106/50 L 93 Room Air 08/16/24 00:22 38 L 08/15/24 23:11 36.7 C 40 L 18 100/57 L 94 Room Air Laboratory Results Abnormal Lab Results 08/15/24 08/15/24 08/15/24 10:38 15:13 18:05 WBC 7.18 RBC 4.82 Hgb 13.9 Hct 40.7 MCV 84.4 MCH 28.8 MCHC 34.2 RDW Std Deviation 38.8 RDW Coeff of Danielle 12.8 Plt Count 218 MPV 9.6 Immature Gran % (Auto) 0.1 Neut % (Auto) 50.8 Lymph % (Auto) 38.6 Arthur % (Auto) 6.4 Eos % (Auto) 3.3 Baso % (Auto) 0.8 Neut # (Auto) 3.64 Lymph # (Auto) 2.77 Arthur # (Auto) 0.46 Eos # (Auto) 0.24 Baso # (Auto) 0.06 Immature Gran # (Auto) 0.01 PT 10.9 INR 1.0 APTT 26 PTT Ratio 1.0 Sodium 135 L Potassium 4.0 Chloride 99 Carbon Dioxide 27 Anion Gap 9 BUN 11 Creatinine 0.95 Est Cr Clr Drug Dosing 48.0 eGFR 59.45 BUN/Creatinine Ratio 11.6 Glucose 283 H POC Glucose 188 H Estimat Average Glucose Hemoglobin A1c Calcium 9.6 Magnesium 1.8 Total Bilirubin 0.5 AST 28 ALT 24 Alkaline Phosphatase 61 Troponin I High Sens 4.4 Total Protein 7.6 Albumin 4.3 Globulin 3.3 Albumin/Globulin Ratio 1.3 TSH 5.720 H Free T4 1.16 Urine Color Dark Yellow Urine Appearance Clear Urine pH 5.5 Ur Specific [place] 1.017 Urine Protein Trace H Urine Glucose (UA) Trace H Urine Ketones Trace H Urine Blood Negative Urine Nitrite Negative Urine Bilirubin 1+ H Urine Urobilinogen Negative Ur Leukocyte Esterase 2+ H Urine WBC (Auto) 11-20 H Urine RBC (Auto) 0-2 U Hyaline Cast (Auto) 11-20 H U Epithel Cells (Auto) 0-2 Urine Bacteria (Auto) None Seen Lyme Disease Screen Negative 08/15/24 08/16/24 08/16/24 20:19 06:01 06:23 WBC RBC Hgb Hct MCV MCH MCHC RDW Std Deviation RDW Coeff of Danielle Plt Count MPV Immature Gran % (Auto) Neut % (Auto) Lymph % (Auto) Arthur % (Auto) Eos % (Auto) Baso % (Auto) Neut # (Auto) Lymph # (Auto) Arthur # (Auto) Eos # (Auto) Baso # (Auto) Immature Gran # (Auto) PT INR APTT PTT Ratio Sodium 132 L Potassium 4.4 Chloride 99 Carbon Dioxide 23 Anion Gap 10 BUN 20 Creatinine 1.29 H D Est Cr Clr Drug Dosing 35.8 eGFR 41.18 BUN/Creatinine Ratio 15.5 Glucose 228 H POC Glucose 226 H 221 H Estimat Average Glucose 212 Hemoglobin A1c 9.0 H Calcium 9.6 Magnesium 2.1 Total Bilirubin AST ALT Alkaline Phosphatase Troponin I High Sens Total Protein Albumin Globulin Albumin/Globulin Ratio TSH Free T4 Urine Color Urine Appearance Urine pH Ur Specific [place] Urine Protein Urine Glucose (UA) Urine Ketones Urine Blood Urine Nitrite Urine Bilirubin Urine Urobilinogen Ur Leukocyte Esterase Urine WBC (Auto) Urine RBC (Auto) U Hyaline Cast (Auto) U Epithel Cells (Auto) Urine Bacteria (Auto) Lyme Disease Screen Diagnostic Findings Echocardiogram 08/15/2024: Ejection fraction greater than 70%. Mild LVH. Mild right atrial dilation. Mild mitral regurgitation. PG Care Time/CCT Total # of Minutes Spent Total Time Spent with Patient: Total time spent is greater than 50% in coordination of care (as documented) at patient's floor/unit and/or counseling patient: Coding Level of Care Code 64480 SUB INP/OBS CARE 235MIN Diagnoses CHB (complete heart block) I44.2 Essential hypertension I10 Mitral regurgitation I34.0
--- NOTE | 2024-08-16 11:35 | Hospitalist Progress Note ---
"Date of Service August 16, 2024 Assessment & Plan (1) CHB (complete heart block): (2) Diabetes mellitus type 2, uncontrolled: (3) Hypothyroidism: (4) Essential hypertension: Plan Erma is a 83F with a PMHx asthma, gout, HTN, HLD and diabetes who presents to the hospital with episode of near syncope. Found to be in complete heart block. CXR with concerns for CHF and PNA - however no O2 requirment, WBC, fevers, symptoms or hypoxia. Admitted for cardiology evaluation and likely pacemaker placement. #Complete Heart Block Atenolol held, no improvement since this has been held Lyme testing negative TTE with hyperdynamic EF 70%, no regional wall motion abnormalities. Normal RVSP. He is now in complete heart block compared to prior echo Pacer pads in place Anticipated for pending pacemaker placement Friday 08/18. If symptomatic prior to that may transcutaneously pace, notify cardiology for bradycardia transvenous pacing. Currently doing well #DMT2 - poorly controlled Home Meds: Ozempic (Sundays) - HELD BSG 283 on arrival with last documented A1c 10.1 02/2023 AM A1c Lantus was dose reduce dto 7 u while NPO. Increased to 10u. Above goal BSG's. SSI tightened to CF 45, CR 10 #HTN | HLD Continue statin Continue candesartan or formulary equivalent SANDOVAL Mild rise in creatinine at 1.29 from baseline of less than 1. Mucous membranes are slightly tacky. Echo was hyperdynamic. 1 L supplemental fluid ordered, patient is continued on a regular diet until n.p.o. on Sunday ARB held #Hypothyroidism TSH mildly elevated 5.7, free T4 WNL Continue Synthroid - dose recently adjusted, will not make further dose adjustments at this time, continue outpatient follow up #Asthma - Continue home inhalers. Dispo: PCU DVT proh: Lovenox 08/16 and 08/17. Will hold 08/18 for pacer placement CODE STATUS: FULL CODE Admission and Anticipated Discharge Date Admission Date: August 15, 2024 Subjective Seen at the bedside with her son present. She reports no overnight event, he did feel quite cold and notes that the heat was turned off in her room but since this is turned up she feels more comfortable feet remain a little bit cold. No lightheadedness/dizziness/palpitations/syncope/presyncope but has not been out of bed and as instructed. No chest pain or chest pressure. Met with cardiology this morning and is awaiting a pacemaker placement which is anticipated for Sunday. No other questions or concerns at bedside Physical Exam Physical Exam: General: A&Ox3. NAD. Cooperative. HEENT: Atraumatic, normocephalic. Vision and hearing grossly intact Pulm: CTAB A&P. -wheezes, -rales, -rhonchi. Symmetrical chest rise. No increase in work of breathing. No respiratory distress. Cardiac: Regular, bradycardic in the 30s.. Radial pulses intact and symmetrical. Extremities: No lower extremity pitting edema is present. Moves all extremities equally Results & Data Results & Data Vital Signs (Past 12 Hours) Vital Signs Temp Pulse Pulse Resp BP Pulse Ox O2 Del Method 08/16/24 08:03 36.8 C 37 L 20 101/54 L 91 Room Air 08/16/24 03:06 36.6 C 45 L 18 106/50 L 93 Room Air 08/16/24 00:22 38 L PG Care Time/CCT Total # of Minutes Spent Total Time Spent with Patient: Total time spent is greater than 50% in coordination of care (as documented) at patient's floor/unit and/or counseling patient: Coding Level of Care Code 40792 SUB INP/OBS CARE 3/50MIN Diagnoses CHB (complete heart block) I44.2 Diabetes mellitus type 2, uncontrolled E11.65 Hypothyroidism E03.9 Essential hypertension I10"
[2024-08-16] MEDS: LACTATED RINGER'S 1,000 ML IV SCH (12:06)
[2024-08-16] MEDS ORDERED: ONDANSETRON INJ 2 MG/ML 2 ML VIAL IV PRN (16:51)
[2024-08-16] MEDS: MELATONIN 3 MG TAB PO PRN (20:22)
--- NOTE | 2024-08-16 23:40 | XRay Report ---
Exam(s): XR CXR 1 VIEW EXAM: XR Chest, 1 View CLINICAL HISTORY: Reason for exam: desatting, concern for aspiration. TECHNIQUE: Frontal view of the chest. COMPARISON: August 15, 2024. IMPRESSION: There is developing thickening of interlobular septa which likely indicates early interstitial edema. No acute airspace disease is evident at this point. No pleural fluid or pneumothorax. Electronically signed by: Brock Schmidt MD 08/16/24 23:39 PM
[2024-08-17] MEDS ORDERED: PHARMACY GLYCEMIC MGMT CONSULT PRN (07:35)
[2024-08-17 07:57] LABS: Basophils # (auto) 0.03 K/uL (0.00-0.20); Basophils % (auto) 0.3 %; Eosinophils # (auto) 0.02 K/uL (0.00-0.50); Eosinophils % (auto) 0.2 %; Hematocrit (blood only) 36.8 % (37.0-47.0); Hemoglobin 12.6 g/dl (12.0-16.0); Immature Granulocytes # (auto) 0.04 K/uL (0.01-0.20); Immature Granulocytes % (auto) 0.4 %; Lymphocytes # (auto) 1.74 K/uL (1.20-3.40); Lymphocytes % (auto) 15.9 %; Mean Corpuscular Hemoglobin 29.2 pg (25.0-34.0); Mean Corpuscular Hgb Conc 34.2 g/dL (32.0-36.0); Mean Corpuscular Volume 85.2 fL (80.0-100.0); Mean Platelet Volume 10.3 fL (9.4-12.4); Monocytes # (auto) 0.72 K/uL (0.11-0.59); Monocytes % (auto) 6.6 %; Neutrophils % (auto) 76.6 %; Platelet Count 198 K/uL (130-400); RDW Coefficient of Variation 12.8 % (11.5-14.5); RDW Standard Deviation 39.8 fL (36.4-46.3); Red Blood Count 4.32 M/uL (4.20-5.40); White Blood Count 10.95 K/ul (4.8-10.8)
--- NOTE | 2024-08-17 08:20 | Cardiology Progress Note ---
Date of Service August 17, 2024 Assessment & Plan (1) CHB (complete heart block): (2) Essential hypertension: (3) Mitral regurgitation: Plan ASSESSMENT/PLAN: 1. Complete heart block: Presumably age-related degeneration. Plan is for permanent pacemaker tomorrow. We discussed the risks, benefits and alternatives. 2. Hypertension: Mostly normotensive with occasional mild hypertension. Allow for some degree of hypertension given heart block with bradycardia. Atenolol discontinued 3. Mitral regurgitation: Mild. Not likely to be a clinical concern in the course of her lifetime. 4. Dyspnea: She has an increasing oxygen requirement and her chest x-ray looks abnormal. Likely pulmonary edema given her relative bradycardia. Less likely aspiration from her vomiting last night. Given her clinical deterioration it would seem reasonable to provide some pacing support while we wait for permanent implant. Will plan on transvenous pacemaker today and permanent device tomorrow. Admission and Anticipated Discharge Date Admission Date: August 15, 2024 Subjective This morning the patient claimed to be feeling tired. She reported a sense of mild dyspnea. Some better sleep last night. She has not been out of bed or ambulatory at all. Apparently she was nauseated last night and did have some vomiting. Review of Systems Review of Systems: Per HPI Physical Exam Physical Exam: She is alert and oriented x3. Mood affect appear normal. She answered all questions appropriately. HEENT: Sclerae are anicteric. Pupils are equal and reactive to light and accommodation. Extraocular movements were intact. Neuro: Cranial nerves intact Lungs: Crackles bilaterally and poor air movement. Cardiac: The rhythm was regular but slow. S1 and S2 were normal. Soft systolic murmur. The PMI was not markedly displaced on palpation. Extremities: Patient has bilateral radial pulses that are equal in intensity. There is no evidence cyanosis or clubbing. There was no evidence of significant peripheral edema bilaterally. Skin: There are no rashes noted on examination today. Results & Data Vital Signs (Past 12 Hours) Vital Signs Temp Pulse Pulse Resp BP Pulse Ox O2 Del Method 08/17/24 07:59 36.8 C 48 L 20 115/52 L 94 High Flow Nasal Cannula 08/17/24 03:05 36.9 C 41 L 20 119/55 L 91 Nasal Cannula 08/17/24 02:56 41 L 16 92 Nasal Cannula 08/16/24 23:52 41 L 08/16/24 22:52 36.6 C 45 L 20 121/68 93 Nasal Cannula 08/16/24 22:23 Nasal Cannula O2 Flow Rate 08/17/24 07:59 10 08/17/24 03:05 8 08/17/24 02:56 8 08/16/24 23:52 08/16/24 22:52 08/16/24 22:23 5 Laboratory Results Abnormal Lab Results 08/16/24 08/16/24 08/16/24 11:41 16:20 20:04 WBC RBC Hgb Hct MCV MCH MCHC RDW Std Deviation RDW Coeff of Danielle Plt Count MPV Immature Gran % (Auto) Neut % (Auto) Lymph % (Auto) [place] % (Auto) Eos % (Auto) Baso % (Auto) Neut # (Auto) Lymph # (Auto) [place] # (Auto) Eos # (Auto) Baso # (Auto) Immature Gran # (Auto) POC Glucose 271 H 239 H 252 H 08/17/24 08/17/24 08/17/24 07:13 07:29 07:29 WBC 10.95 H RBC 4.32 Hgb 12.6 Hct 36.8 L MCV 85.2 MCH 29.2 MCHC 34.2 RDW Std Deviation 39.8 RDW Coeff of Danielle 12.8 Plt Count 198 MPV 10.3 Immature Gran % (Auto) 0.4 Neut % (Auto) 76.6 Lymph % (Auto) 15.9 [place] % (Auto) 6.6 Eos % (Auto) 0.2 Baso % (Auto) 0.3 Neut # (Auto) 8.40 H Lymph # (Auto) 1.74 [place] # (Auto) 0.72 H Eos # (Auto) 0.02 Baso # (Auto) 0.03 Immature Gran # (Auto) 0.04 POC Glucose 330 H* 339 H* Diagnostic Findings Chest x-ray demonstrates some early pulmonary edema. PG Care Time/CCT Total # of Minutes Spent Total Time Spent with Patient: Total time spent is greater than 50% in coordination of care (as documented) at patient's floor/unit and/or counseling patient: Coding Level of Care Code 50050 SUB INP/OBS CARE 2/35MIN Diagnoses CHB (complete heart block) I44.2 Essential hypertension I10 Mitral regurgitation I34.0
[2024-08-17 08:21] LABS: BUN Creatinine Ratio 25.8 (10-20); Calcium 9.2 mg/dl (8.6-10.3); Creatinine Clr Calc Pharmacy 37.2 ml/min; Potassium 4.3 mmol/L (3.5-5.1)
[2024-08-17] MEDS: LANTUS PER UNIT CHARGE SQ SCH ×2 (08:24→21:25)
--- NOTE | 2024-08-17 08:27 | Pre Anesthesia Assessment ---
Date of Service August 17, 2024 Pre Sedation Assessment Vital Signs Temp Pulse Pulse Resp BP Pulse Ox O2 Del Method 08/17/24 07:59 36.8 C 48 L 20 115/52 L 94 High Flow Nasal Cannula 08/17/24 03:05 36.9 C 41 L 20 119/55 L 91 Nasal Cannula 08/17/24 02:56 41 L 16 92 Nasal Cannula 08/16/24 23:52 41 L 08/16/24 22:52 36.6 C 45 L 20 121/68 93 Nasal Cannula 08/16/24 22:23 Nasal Cannula 08/16/24 19:58 41 L 18 92 Nasal Cannula 08/16/24 19:35 36.7 C 41 L 18 119/65 88 L Nasal Cannula 08/16/24 16:57 36.8 C 43 L 20 122/56 L 90 Room Air 08/16/24 16:45 36.9 C 44 L 20 118/52 L 91 Room Air 08/16/24 15:00 42 L 08/16/24 15:00 41 L 08/16/24 11:53 36.7 C 71 18 124/58 L 93 Room Air O2 Flow Rate 08/17/24 07:59 10 08/17/24 03:05 8 08/17/24 02:56 8 08/16/24 23:52 08/16/24 22:52 08/16/24 22:23 5 08/16/24 19:58 8 08/16/24 19:35 4 08/16/24 16:57 08/16/24 16:45 08/16/24 15:00 08/16/24 15:00 08/16/24 11:53 Cardiovascular + bradycardic Respiratory + respiratory effort normal Pre-Sedation Airway Assessment Smoking Status: Never smoker Hx Sleep Apnea: Yes Hx Difficult Intubation: No Short, Thick Neck: No Thyromental Distance: > or= 3.5 Finger Breadths Oral Cavity: + WNL Mallampati Class: III ASA: ASA3 Procedure Planning Contraindications for Sedation: none Current Medications Reviewed: Yes Notes The planned sedation has been discussed with the patient. Informed Consent was obtained. I have identified the patient, determined the appropriateness of sedation and have assessed the patient immediately prior to the procedure. All medicine(s) and interventions are by my order.
[2024-08-17] MEDS: INSULIN HUMAN REGULAR PER UNIT 7 UNITS in SYRINGE 6.93 ML IV ONE (08:32)
--- NOTE | 2024-08-17 08:33 | Hospitalist Progress Note ---
"Date of Service August 17, 2024 Assessment & Plan (1) CHB (complete heart block): (2) Diabetes mellitus type 2, uncontrolled: (3) Hypothyroidism: (4) Essential hypertension: Plan Erma is a 83F with a PMHx asthma, gout, HTN, HLD and diabetes who presents to the hospital with episode of near syncope. Found to be in complete heart block. CXR with concerns for CHF and PNA - however no O2 requirment, WBC, fevers, symptoms or hypoxia. Admitted for cardiology evaluation and likely pacemaker placement. #Complete Heart Block Atenolol held, no improvement since this has been held Lyme testing negative TTE with hyperdynamic EF 70%, no regional wall motion abnormalities. Normal RVSP. He is now in complete heart block compared to prior echo Pending permanent pacemaker placement 08/18 Patient received 1 L of supplemental fluid for hyperdynamic echo and SANDOVAL. Overnight 08/16 - 08/17 has had rapidly escalating oxygen requirement. Likely due to poor cardiac output with her third-degree heart block and junctional rhythm. Due to both SANDOVAL and progressive congestion was discussed with cardiology and recommended for TV pacing, activated as heart alert Transferred to the ICU while undergoing TV pacing. S/p TV pacer BP improved, pulse rate 80s. Rapid improvement in oxygen requirement to 2 L. Will hold on diuresis and if still hypoxic can repeat chest x-ray in the morning. Anticipate pacer placement 08/18/2024 #DMT2 - poorly controlled Home Meds: Ozempic (Sundays) - HELD BSG 283 on arrival with last documented A1c 10.1 02/2023 AM A1c Lantus was initially dose reduced to 7 units increased to 10 units once no herlinda regan n.p.o. Hyperglycemic overnight. SQ parameters tightened, in anticipation of TV pacing and due to hyperglycemia this morning was given 1 dose of 7 units IV insulin. ICU hyperglycemia protocol while in the unit appreciate recommendations #HTN | HLD Continue statin ARB held for SANDOVAL/borderline hypotension SANDOVAL Creatinine slightly above baseline, downtrending from 1.29 at 1.24. Baseline less than 1. Suspect poor perfusion with decreased CO TV pacing as above Trend daily Renally dose medications Avoid nephrotoxins #Hypothyroidism TSH mildly elevated 5.7, free T4 WNL Continue Synthroid - dose recently adjusted, will not make further dose adjustments at this time, continue outpatient follow up #Asthma - Continue home inhalers. Dispo: ICU for transvenous pacing DVT PPx: Held pending TV pacing/pacer placement. CODE STATUS: FULL CODE Admission and Anticipated Discharge Date Admission Date: August 15, 2024 Subjective Seen at bedside. Overnight has escalating oxygen requirement. She was short of breath but feels more comfortable on high flow nasal cannula. No chest pain at any point. No lightheadedness or dizziness, but does feel very tired. Did have an episode of nausea/vomiting last night but denies any aspiration. She has not choked on her food. X-ray is more consistent with developing congestion, no lobar consolidation is seen. No fevers. Physical Exam Physical Exam: General: A&Ox3. NAD. Cooperative. HEENT: Atraumatic, normocephalic. Vision and hearing grossly intact Pulm: Bibasilar rales. Symmetrical chest rise. On high flow nasal cannula without distress. Cardiac: Regular, bradycardic in the 30s-40s.. Radial pulses intact and symmetrical. Extremities: No lower extremity pitting edema is present. Moves all extremities equally Post pacer placement on reevaluation in the ICU aeration of the lungs is improved, still has bibasilar crackles/slight rales but clinical appearance greatly improved and has been weaned to 2 L Results & Data Results & Data Vital Signs (Past 12 Hours) Vital Signs Temp Pulse Pulse Resp BP Pulse Ox O2 Del Method 08/17/24 07:59 36.8 C 48 L 20 115/52 L 94 High Flow Nasal Cannula 08/17/24 03:05 36.9 C 41 L 20 119/55 L 91 Nasal Cannula 08/17/24 02:56 41 L 16 92 Nasal Cannula 08/16/24 23:52 41 L 08/16/24 22:52 36.6 C 45 L 20 121/68 93 Nasal Cannula 08/16/24 22:23 Nasal Cannula O2 Flow Rate 08/17/24 07:59 10 08/17/24 03:05 8 08/17/24 02:56 8 08/16/24 23:52 08/16/24 22:52 08/16/24 22:23 5 PG Care Time/CCT Total # of Minutes Spent Total Time Spent with Patient: Total time spent is greater than 50% in coordination of care (as documented) at patient's floor/unit and/or counseling patient: Coding Level of Care Code 47241 SUB INP/OBS CARE 350MIN Diagnoses CHB (complete heart block) I44.2 Diabetes mellitus type 2, uncontrolled E11.65 Hypothyroidism E03.9 Essential hypertension I10"
[2024-08-17] MEDS ORDERED: LANTUS PER UNIT CHARGE SQ SCH (09:00)
[2024-08-17] MEDS: MIDAZOLAM HCL 1 MG/ML 2ML VIAL ONE (09:10)
[2024-08-17] MEDS: fentaNYL citrate PF 100 MCG/2 ML VIAL ONE (09:10)
--- NOTE | 2024-08-17 09:17 | Post Anesthesia Assessment ---
Date of Service August 17, 2024 Post Sedation Assessment Vital Signs Temp Pulse Pulse Resp BP Pulse Ox O2 Del Method 08/17/24 07:59 36.8 C 48 L 20 115/52 L 94 High Flow Nasal Cannula 08/17/24 03:05 36.9 C 41 L 20 119/55 L 91 Nasal Cannula 08/17/24 02:56 41 L 16 92 Nasal Cannula 08/16/24 23:52 41 L 08/16/24 22:52 36.6 C 45 L 20 121/68 93 Nasal Cannula 08/16/24 22:23 Nasal Cannula 08/16/24 19:58 41 L 18 92 Nasal Cannula 08/16/24 19:35 36.7 C 41 L 18 119/65 88 L Nasal Cannula 08/16/24 16:57 36.8 C 43 L 20 122/56 L 90 Room Air 08/16/24 16:45 36.9 C 44 L 20 118/52 L 91 Room Air 08/16/24 15:00 42 L 08/16/24 15:00 41 L 08/16/24 11:53 36.7 C 71 18 124/58 L 93 Room Air O2 Flow Rate 08/17/24 07:59 10 08/17/24 03:05 8 08/17/24 02:56 8 08/16/24 23:52 08/16/24 22:52 08/16/24 22:23 5 08/16/24 19:58 8 08/16/24 19:35 4 08/16/24 16:57 08/16/24 16:45 08/16/24 15:00 08/16/24 15:00 08/16/24 11:53 Recovery Score Activity: Moves 4 extremities Respiration: Deep Breath/Cough Circulation: +/-20% PreAnes Value Consciousness: Arouseable (by name) Oxygen Saturation: O2 needed for >90% Discharge Sedation Level of Care: Fast Track Phase II Post Sedation Plan On clinical assessment, the patient appears to have tolerated the sedation without complications. Patient is recovering as anticipated. Patient will continue to be monitored by nursing and may be discharged when sedation discharge criteria are met per below protocol. Upon Completions of procedure up to 15 minutes continue every 5 minute vital signs and the P.A.R. score; then discharge to a Phase I or Fast Track to Phase II per the following guidelines: * Discharge Patient to appropriate Phase II area if PAR is 8 or greater or return to pre- procedure baseline. The post - procedure orders will be as directed. * If PAR score is less than 8 or not return to pre-procedure baseline then patient will follow Phase I monitoring till PAR is reached for Phase II. The Phase I may be done in procedure room or may call to secure a Phase I area. * If naloxone or flumazenil are used for reversal, hold in Phase I for continued monitoring from when last reversal dose was given for a minimum of 60 minutes or longer pending the nurse and/or physician discretion of patient condition before discharge to Phase II. Please call the Sedation Physician to re-evaluate and complete post-note for discharge to Phase II area. Do NOT discharge from procedure sedation or Phase 1 until post- sedation evaluation note is complete by procedure /sedation MD Sedation Discharge Instructions to be given to the patient at discharge to home.
--- NOTE | 2024-08-17 09:17 | Cardiac Catheterization ---
[facility] Data: Senior Qa Tester Cardiac Status Clinical evaluation leading to the procedure CAD Presenation: Sx unlikely to be ischemic Diagnostic Physicians Name: Issac Solorio MD Closure Device Recommendations: Management Recommendatons Cardiac Cath Procedure Full Procedure Date August 17, 2024 Pre-Procedure Diagnosis Pre-Procedure Diagnosis: Arrhythmia AUC Score AUC Score: 7 Post-Procedure Diagnosis Post-Procedure Diagnosis: Cardiothoracic Finding Procedure(s) Performed Procedure(s) Performed: Temporary Pacemaker and Ultrasound Guided Vascular Access Sales Office Manager Issac Solorio MD Estimated Blood Loss Estimated Blood Loss: 2cc Medication(s) Medication(s): Fentanyl, Lidocaine 1% and Versed Summary of Findings Procedure performed: Placement of temporary transvenous pacemaker Staff furnace packer: Issac Solorio MD Indication: Symptomatic bradycardia Procedure in detail The patient was informed risks, benefits and alternatives to the intended procedure. She understood and wished to proceed. She was taken to the cardiac catheterization lab urgently. Conscious sedation was administered per protocol and the patient was monitored electrocardiography throughout today's procedure. The right internal jugular area was prepped and draped in usual sterile fashion. Area was anesthetized using subcutaneous ministration of a lidocaine solution. The right internal jugular vein was accessed using modified standard technique under ultrasound guidance and a venous sheath was placed to the site over a guidewire. This venous sheath was used to facilitate passage of balloontipped pacing catheter to the right ventricular apex under fluoroscopic guidance. Adequate threshold parameters were obtained. The sheath and catheter were then secured into place. Sterile dressing was also applied. The patient tolerated procedure well. There were no immediate complications. Hemodynamics Rest Ao:: n/a Final Ao: n/a LV: n/a Recommendations Recommendations: Management Recommendatons Radiation Exposure (mGy) 15 Contrast (mls) 0 Procedural Complication(s) None Disposition ICU I attest to the content of the Intraoperative Record and any orders documented therein. Any exceptions are noted below. [facility] Card Cath Procedure Codes Therapeutic Services & Ancillary Procedure 1: Cardiovascular Tx and Anc Procedures: 25077 Temp Pacer Insert Procedure 2: Cardiovascular Tx and Anc Procedures: 51495 Ultrasonic Guidance Vascular Access Moderate Sedation Procedure 1: Sedation/Anesthesia: 18597 Mod Sedation by the same physician;Init15 Min Child Age 5 & Up PG Care Time/CCT Total # of Minutes Spent Total Time Spent with Patient: Total time spent is greater than 50% in coordination of care (as documented) at patient's floor/unit and/or counseling patient:
[2024-08-17] MEDS: LANTUS PER UNIT CHARGE SQ ONE (12:15)
--- NOTE | 2024-08-17 12:36 | Critical Care Consultation ---
Date of Consultation August 17, 2024 Assessment & Plan (1) CHB (complete heart block): (2) Diabetes mellitus type 2, uncontrolled: (3) Acute kidney injury: Plan 83-year-old female with history of poorly controlled diabetes mellitus type 2, complex sleep apnea syndrome, mitral regurgitation who presented with SANDOVAL and complete heart block. She currently has a transvenous pacemaker. Neurologic: No significant issues. Pulmonary: O2 requirements have improved now that she is in a paced rhythm. Chest x-ray 08/16/2024 personally reviewed with evidence of mild pulmonary edema. Patient on Singulair for history of allergies and asthma. Cardiovascular: Echo 08/15/2024 with hyperdynamic EF. Transvenous pacemaker in place. Atenolol currently on hold. Gastrointestinal: N.p.o. after midnight. Heart healthy diet otherwise. Renal: Mild SANDOVAL likely due to poor perfusion heart block. Follow urine output closely fluids. Follow sodium. Infectious disease: Lyme screen negative. No other signs of active infection Hematologic: No acute issues Endocrine: Mild hypothyroidism. Maintain euglycemia. Lines and tubes: Continue peripheral IVs and Patricia VTE prophylaxis: SCDs CODE STATUS: Full Family at bedside: None available at Disposition: ICU I have personally spent 37 minutes of critical care time in the direct management of this patient. This is a life/limb threatening event. This includes time spent evaluating patient, direct bedside care, chart review, placing o rders, interpretation of diagnostic studies, discussion with consultants, patient, and family members, as well as other required patient management activities. This time is exclusive of all separately billable procedures, and teaching time and separate from and in addition to any other critical care service time. Thank you for allowing us to participate in the care of this patient. History of Present Illness Reason for Consultation: Complete heart block status post transvenous pacemaker placement Attending Physician: Osei Max MD History of Present Illness 83-year-old male who presented to the hospital 08/15/2024 with complete heart block. Overnight, she had increasing oxygen requirements and was taken urgently to [facility] for placement of a transvenous pacemaker. She is currently in the ICU with a transvenous pacemaker awaiting permanent pacemaker placement tomorrow. Hospitalist note from today reviewed. Patient also discussed with hospitalist service. Patient denies any overt complaints currently. Allergies Allergy/AdvReac Type Severity Reaction Status Date / Time prednisone Allergy Severe ITCHY, RED Verified 01/28/24 10:54 sulfite Allergy Severe RASH/REDDENED/THROAT Verified 01/28/24 10:54 CLOSES codeine Allergy Mild RASH Verified 01/28/24 10:54 monosodium glutamate Allergy Mild itchy, rash Verified 01/28/24 10:54 pollen extracts Allergy Unknown SEASONAL Verified 01/28/24 10:54 ALLERGIES TREES Allergy Unknown SEASONAL Uncoded 01/28/24 10:54 ALLERGIES WEEDS Allergy Unknown SEASONAL Uncoded 01/28/24 10:54 ALLERGIES Home Medications Medication Instructions Recorded Confirmed Type calcium 315 mg (as 1 tab PO QAM 10/29/18 08/15/24 History citrate)-vitamin D3 6.25 mcg (250 unit) tablet (Citracal + Vitamin D Maximum) carboxymethylcellulose sodium 0.25 2 drops ophthalmic (eye) DAILY PRN 10/29/18 08/15/24 History % eye drops Dry Eye(S) fluticasone propionate 50 1 spray intranasal QPM 10/29/18 08/15/24 History mcg/actuation nasal spray,suspension glucosamine-chondroitin 250 mg-200 2 tab PO QAM 10/29/18 08/15/24 History mg tablet multivitamin (Daily Multi-Vitamin 1 tab PO QPM 10/29/18 08/15/24 History tablet) aspirin 81 mg tablet,delayed 81 mg PO HS 02/18/19 08/15/24 History release cyanocobalamin (vitamin B-12) 1,000 mcg PO QAM 02/18/19 08/15/24 History 1,000 mcg tablet (Vitamin B-12) colchicine 0.6 mg tablet 0.6 mg PO BID PRN gout flare up 09/22/22 08/15/24 Rx #90 tabs atenolol 50 mg tablet 50 mg PO QAM #90 tabs 02/27/23 08/15/24 Rx simvastatin 20 mg tablet 20 mg PO QPM #90 tabs 02/27/23 08/15/24 Rx albuterol sulfate 90 mcg/actuation 2 puff inhalation Q4H PRN 08/15/23 08/15/24 Rx aerosol inhaler (ProAir HFA) shortness of breath or wheezing #1 inhaler montelukast 10 mg tablet 10 mg PO HS #100 tabs 08/15/23 08/15/24 Rx budesonide-formoterol HFA 80 2 inh inhalation BID PRN sob 08/15/24 08/15/24 History mcg-4.5 mcg/actuation aerosol inhaler candesartan 16 mg tablet 16 mg PO DAILY 08/15/24 08/15/24 History glucagon 1 mg solution for 1 mg subcut DIRECTED PRN 08/15/24 08/15/24 History injection (Glucagon Emergency Kit) Hypoglycemia levothyroxine 150 mcg tablet 100 mcg PO DAILY 08/15/24 08/15/24 History semaglutide 2 mg/dose (8 mg/3 mL) 2 mg subcut WK 08/15/24 08/15/24 History subcutaneous pen injector (Ozempic) Patient History Medical History (Updated 08/17/24 @ 12:30 by Norm Hargrove MD) Fracture of distal end of left fibula Surgical History History of colonoscopy with polypectomy (~2013) History of tooth extraction History of wisdom tooth extraction History of bilateral cataract extraction S/P dilation and curettage S/P appendectomy Family History Son Asthma Grandmother (Maternal) Breast cancer No family history of adverse response to anesthesia Aunt Breast cancer Mother Heart disease Family history of diabetes mellitus Father Liver cancer Kidney malignancy Grandmother (Paternal) No family history of adverse response to anesthesia Grandfather (Maternal) Myocardial infarction Denies family history of Ovarian cancer Prostate cancer Colorectal cancer Social History Smoking Status: Never smoker Second Hand Exposure: Yes (father smoked); Do You Dip or Chew Tobacco: No; Hx Alcohol Use: No Hx Substance Use: No Preferred Language: Syriac Communication Ability: Effective Visual Impairment: No Limitations Hearing Ability: Normal Planer Setup Operator Required: No Beliefs That Will Affect Care: None marital status: Current Living Situation: Spouse current occupational status: retired Feels Safe at Home: Yes Childhood Exposure to Second-Hand Smoke: Yes Dental Care, Regularly: Yes Physical Activity Frequency: Daily Seatbelt Use: always Sunscreen Use: Yes Assistive Devices: Cane Review of Systems Review of Systems: All systems reviewed & are unremarkable except as noted in HPI & below Physical Exam Physical Exam: Constitutional: Patient appears to be of their stated age. Patient is in no apparent distress. Patient is well-developed. Eyes: Pupils are equal round and reactive to light. Conjunctivae are normal. Anicteric sclera. Ears nose, mouth and throat: Mallampati class 2. Normal posterior oropharynx. Uvula is midline. Neck: Trachea is midline. Visual inspection is normal. Respiratory: Mild bilateral crackles. Cardiovascular: Regular rate and rhythm. No murmurs. No edema. Transvenous pacemaker noted right IJ. Gastrointestinal: Normal bowel sounds, soft, nontender and nondistended. No hepatosplenomegaly noted. Musculoskeletal: No cyanosis. Patient is able to move all extremities. Strength is 5 out of 5 in the upper and lower extremities. Skin: No rashes, warm dry and intact. Neurologic: No obvious focal neurological deficits seen. Psychiatric: Alert and oriented x3 with a euthymic affect. Results & Data Results & Data Vital Signs (Past 12 Hours) Vital Signs Temp Pulse Pulse Resp BP BP Pulse Ox 08/17/24 11:45 80 24 97 08/17/24 11:36 80 19 94 08/17/24 11:21 80 15 96 08/17/24 11:12 80 16 95 08/17/24 11:00 80 17 92 08/17/24 11:00 157/69 H 08/17/24 11:00 08/17/24 10:57 80 20 94 08/17/24 10:48 80 20 93 08/17/24 10:30 80 24 94 08/17/24 10:21 80 18 94 08/17/24 10:20 37.5 C 08/17/24 10:03 80 16 92 08/17/24 10:00 145/69 H 08/17/24 10:00 145/69 H 08/17/24 10:00 145/69 H 08/17/24 09:57 80 18 93 08/17/24 09:53 143/70 H 08/17/24 09:53 143/70 H 08/17/24 09:53 143/70 H 08/17/24 09:53 143/70 H 08/17/24 09:51 80 28 H 90 08/17/24 09:48 80 20 86 L 08/17/24 07:59 36.8 C 48 L 20 115/52 L 94 08/17/24 03:05 36.9 C 41 L 20 119/55 L 91 08/17/24 02:56 41 L 16 92 O2 Del Method O2 Flow Rate 08/17/24 11:45 08/17/24 11:36 08/17/24 11:21 08/17/24 11:12 08/17/24 11:00 Nasal Cannula 2 08/17/24 11:00 08/17/24 11:00 Nasal Cannula 2 08/17/24 10:57 08/17/24 10:48 08/17/24 10:30 08/17/24 10:21 08/17/24 10:20 08/17/24 10:03 Nasal Cannula 2 08/17/24 10:00 08/17/24 10:00 08/17/24 10:00 08/17/24 09:57 08/17/24 09:53 08/17/24 09:53 08/17/24 09:53 08/17/24 09:53 08/17/24 09:51 08/17/24 09:48 08/17/24 07:59 High Flow Nasal Cannula 10 08/17/24 03:05 Nasal Cannula 8 08/17/24 02:56 Nasal Cannula 8 Coding Level of Care Code 59712 CRITICAL CARE 1ST 30-74M Diagnoses CHB (complete heart block) I44.2 Diabetes mellitus type 2, uncontrolled E11.65 Acute kidney injury N17.9
--- NOTE | 2024-08-17 13:16 | Pharmacy Report ---
Pharmacy Glycemic Short Note 2 - Date of Service August 17, 2024 - Glycemic Short BSG Results (Last 24 hours): 08/16/24 08/16/24 08/17/24 16:20 20:04 07:17 Glucose 299 H POC Glucose 239 H 252 H 08/17/24 08/17/24 08/17/24 07:29 07:29 11:17 Glucose POC Glucose 330 H* 339 H* 285 H OUTPATIENT ANTIDIABETIC REGIMEN: * Semaglutide 2 mg SC weekly on Sunday A1c= 9% ASSESSMENT: * Erma is a 83 yo F with history of T2DM, HTN, HLD, gout, complex sleep apnea syndrome, mitral regurgitation who presented with SANDOVAL and complete heart block. She was taken to [facility] cath lab today for transvenous pacemaker and is awaiting permanent pacemaker placement. * Severe hyperglycemia this morning, BSG 330 mg/dL. Both basal and bolus insulin was increased at that time. Patient was given an IV insulin bolus just prior to cardiac procedure. Per discussion with Hospitalist, anticipate improvement in hyperglycemia s/p procedure. Will hold of on IV insulin infusion and attempt to manage with SC insulin for now. PLAN FOR INPATIENT GLYCEMIC CONTROL: * Basal insulin * Lantus 13 units SC at 1215, then Lantus 0-7-13 units SC BID per scale * Bolus insulin * NovoLog per scale ACHS or Q6hrs while NPO * Goal Range: Low 110 mg/dL - High 140 mg/dL * Correction Factor: 20 mg/dL/unit * Nutritional / Prandial insulin per carb ratio of 1 unit per 8 grams CHO consumed
[2024-08-17] MEDS: INSULIN ASPART PER UNIT CHARGE SC SCH (23:13)
[2024-08-18 06:14] LABS: BUN Creatinine Ratio 21.4 (10-20); Calcium 8.9 mg/dl (8.6-10.3); Creatinine Clr Calc Pharmacy 56.2 ml/min; Potassium 3.9 mmol/L (3.5-5.1)
--- NOTE | 2024-08-18 06:47 | Critical Care Progress Note ---
Date of Service August 18, 2024 Assessment & Plan (1) CHB (complete heart block): (2) Diabetes mellitus type 2, uncontrolled: (3) Acute kidney injury: Plan 83-year-old female with history of poorly controlled diabetes mellitus type 2, complex sleep apnea syndrome, and mitral regurgitation who presented with SANDOVAL and complete heart block. She currently has a transvenous pacemaker and will have a permanent placed today. Will be suitable for downgrade once hemodynamically table with permanent pacer. Neurologic: No significant issues. Pulmonary: O2 requirements improved after achieving a paced rhythm. On supplemental O2, currently 2L NC, maintaining SpO2 > 92%. Chest x-ray 08/16/2024 showed evidence of mild pulmonary edema. Patient on Singulair for history of allergies and asthma. Cardiovascular: Echo 08/15/2024 with hyperdynamic EF. Atenolol currently on hold. Transvenous pacemaker in place. Plan for permanent pacer today. Gastrointestinal: NPO until pacer placed. Heart healthy diet otherwise Renal: Mild SANDOVAL likely due to poor perfusion heart block. Follow urine output closely fluids. Follow sodium. Infectious disease: Lyme screen negative. No other signs of active infection Hematologic: No acute issues Endocrine: Mild hypothyroidism. Maintain euglycemia; Lantus 0-7-13 units SC BID per scale, NovoLog q6h while NPO Lines and tubes: 2x peripheral IVs, Patricia catheter VTE prophylaxis: SCDs CODE STATUS: Full Disposition: Downgrade from ICU after permanent pacemaker Admission and Anticipated Discharge Date Admission Date: August 15, 2024 Supervising Physician Co-Signing Physician Notes Dr. Tabor was resident physician during care of patient. I separately evaluated patient for little portions of the history and the exam. I was present during the critical portion of medical decision making, and I discussed the case with the resident. I generally agree with the findings and plan. Patient had permanent pacemaker placed which is functioning. Stable for downgrade out of ICU. Subjective Feeling very well after her procedure. Denies any AMIN, CP, SOB, palpitations, dizzy/lightheadedness. Eating and drinking normally. Looking forward to downgrade today and home tomorrow. Review of Systems Review of Systems: As per HPI. Physical Exam Physical Exam: Constitutional: Appears stated age. No acute distress. HEENT: PERRL. EOMI. Conjunctivae are normal. Anicteric sclera. Trachea is midline. Visual inspection is normal. Respiratory: Lungs clear to auscultation. Normal respiratory effort Cardiovascular: Increased rate, regular rhythm. No murmurs appreciated Gastrointestinal: Soft, nontender, nondistended. Normal bowel sounds. No HSM Musculoskeletal: No cyanosis, clubbing, or edema. Full range of motion. Skin: No rashes, warm, dry and intact. Neurologic: Alert and oriented. No focal neurological deficits. Cranial nerves grossly intact. Strength 5/5. Sensation to light touch intact. Results & Data Results & Data Vital Signs (Past 12 Hours) Vital Signs Temp Pulse Resp BP Pulse Ox O2 Del Method O2 Flow Rate 08/18/24 06:09 80 17 96 08/18/24 05:45 80 21 94 08/18/24 05:30 80 22 95 08/18/24 05:27 80 18 95 08/18/24 05:12 80 21 94 08/18/24 05:03 80 22 92 08/18/24 05:00 137/56 L 08/18/24 04:54 80 17 89 L 08/18/24 04:42 80 17 94 08/18/24 04:33 80 17 94 08/18/24 04:12 37.8 C H 80 20 94 08/18/24 04:00 143/76 H 08/18/24 04:00 143/76 H 08/18/24 03:51 80 16 94 08/18/24 03:42 80 23 94 08/18/24 03:33 80 24 94 08/18/24 03:27 80 20 94 08/18/24 03:18 80 24 93 08/18/24 03:00 139/72 08/18/24 02:54 80 22 93 08/18/24 02:30 80 21 93 08/18/24 02:18 80 26 H 93 08/18/24 02:00 136/77 08/18/24 01:36 80 18 95 08/18/24 01:33 80 21 94 08/18/24 01:21 80 20 94 08/18/24 01:00 151/71 H 08/18/24 01:00 151/71 H 08/18/24 01:00 80 17 94 08/18/24 00:54 80 19 93 08/18/24 00:06 80 18 94 08/18/24 00:05 80 08/18/24 00:00 133/74 08/17/24 23:42 80 18 95 08/17/24 23:36 80 18 95 08/17/24 23:12 80 16 94 08/17/24 23:09 80 19 94 Nasal Cannula 2 08/17/24 23:00 37.9 C H 132/67 08/17/24 23:00 132/67 08/17/24 22:57 80 20 96 08/17/24 22:26 Nasal Cannula 2 08/17/24 22:21 80 08/17/24 22:06 80 23 96 08/17/24 21:30 80 20 94 08/17/24 21:00 80 20 96 Nasal Cannula 2 08/17/24 21:00 140/68 08/17/24 21:00 140/68 08/17/24 20:30 80 19 95 08/17/24 20:24 80 24 96 08/17/24 20:00 142/73 H 08/17/24 20:00 142/73 H 08/17/24 19:57 37.9 C H 80 23 96 08/17/24 19:30 80 19 96 Nasal Cannula 2 08/17/24 19:03 80 20 08/17/24 19:00 121/63 Resident Activity Tracking Resident Involvement: Resident Care Provided Care Provided: Adult Hospital Medicine
--- NOTE | 2024-08-18 08:38 | Pre Anesthesia Assessment ---
Date of Service August 18, 2024 Pre Sedation Assessment Vital Signs Temp Pulse Pulse Resp BP BP Pulse Ox 08/18/24 07:42 80 16 142/73 H 98 08/18/24 07:16 08/18/24 07:15 36.8 C 08/18/24 07:00 80 25 H 96 08/18/24 07:00 128/71 08/18/24 06:54 80 17 94 08/18/24 06:09 80 17 96 08/18/24 05:45 80 21 94 08/18/24 05:30 80 22 95 08/18/24 05:27 80 18 95 08/18/24 05:12 80 21 94 08/18/24 05:03 80 22 92 08/18/24 05:00 137/56 L 08/18/24 04:54 80 17 89 L 08/18/24 04:42 80 17 94 08/18/24 04:33 80 17 94 08/18/24 04:12 37.8 C H 80 20 94 08/18/24 04:00 143/76 H 08/18/24 04:00 143/76 H 08/18/24 03:51 80 16 94 08/18/24 03:42 80 23 94 08/18/24 03:33 80 24 94 08/18/24 03:27 80 20 94 08/18/24 03:18 80 24 93 08/18/24 03:00 139/72 08/18/24 02:54 80 22 93 08/18/24 02:30 80 21 93 08/18/24 02:18 80 26 H 93 08/18/24 02:00 136/77 08/18/24 01:36 80 18 95 08/18/24 01:33 80 21 94 08/18/24 01:21 80 20 94 08/18/24 01:00 151/71 H 08/18/24 01:00 151/71 H 08/18/24 01:00 80 17 94 08/18/24 00:54 80 19 93 08/18/24 00:06 80 18 94 08/18/24 00:05 80 08/18/24 00:00 133/74 08/17/24 23:42 80 18 95 08/17/24 23:36 80 18 95 08/17/24 23:12 80 16 94 08/17/24 23:09 80 19 94 08/17/24 23:00 37.9 C H 132/67 08/17/24 23:00 132/67 08/17/24 22:57 80 20 96 08/17/24 22:26 08/17/24 22:21 80 05 22:06 80 23 96 08/17/24 21:30 80 20 94 08/17/24 21:00 80 20 96 08/17/24 21:00 140/68 08/17/24 21:00 140/68 08/17/24 20:30 80 19 95 08/17/24 20:24 80 24 96 08/17/24 20:00 142/73 H 08/17/24 20:00 142/73 H 08/17/24 19:57 37.9 C H 80 23 96 08/17/24 19:30 80 19 96 08/17/24 19:03 80 20 08/17/24 19:00 121/63 08/17/24 18:03 80 15 08/17/24 18:00 164/79 H 08/17/24 18:00 164/79 H 08/17/24 18:00 164/79 H 08/17/24 17:57 80 21 91 08/17/24 17:51 80 19 94 08/17/24 17:48 80 25 H 95 08/17/24 17:36 80 23 95 08/17/24 17:15 80 26 H 93 08/17/24 17:00 132/69 08/17/24 17:00 80 23 94 08/17/24 16:42 80 20 92 08/17/24 16:30 80 20 96 08/17/24 16:24 80 17 95 08/17/24 16:00 134/67 08/17/24 16:00 134/67 08/17/24 16:00 134/67 08/17/24 16:00 134/67 08/17/24 16:00 80 21 94 08/17/24 15:54 80 25 H 92 08/17/24 15:33 80 21 93 08/17/24 15:23 08/17/24 15:12 80 26 H 90 08/17/24 15:00 144/71 H 08/17/24 15:00 144/71 H 08/17/24 14:51 80 29 H 96 08/17/24 14:03 80 21 96 08/17/24 14:00 143/86 H 08/17/24 14:00 143/86 H 08/17/24 13:48 80 21 97 08/17/24 13:15 80 20 97 08/17/24 13:00 139/71 08/17/24 12:24 80 17 96 08/17/24 12:09 80 19 95 08/17/24 12:00 141/63 H 08/17/24 12:00 141/63 H 08/17/24 11:48 80 15 96 08/17/24 11:45 80 24 97 08/17/24 11:36 80 19 94 08/17/24 11:21 80 15 96 08/17/24 11:12 80 16 95 08/17/24 11:00 80 17 92 08/17/24 11:00 157/69 H 08/17/24 11:00 08/17/24 10:57 80 20 94 08/17/24 10:48 80 20 93 08/17/24 10:30 80 24 94 08/17/24 10:21 80 18 94 08/17/24 10:20 37.5 C 08/17/24 10:03 80 16 92 08/17/24 10:00 145/69 H 08/17/24 10:00 145/69 H 08/17/24 10:00 145/69 H 08/17/24 09:57 80 18 93 08/17/24 09:53 143/70 H 08/17/24 09:53 143/70 H 08/17/24 09:53 143/70 H 08/17/24 09:53 143/70 H 08/17/24 09:51 80 28 H 90 08/17/24 09:48 80 20 86 L Pulse Ox O2 Del Method O2 Del Method O2 Flow Rate 08/18/24 07:42 Nasal Cannula 2 08/18/24 07:16 Nasal Cannula 2 08/18/24 07:15 08/18/24 07:00 08/18/24 07:00 08/18/24 06:54 Nasal Cannula 2 08/18/24 06:09 08/18/24 05:45 08/18/24 05:30 08/18/24 05:27 08/18/24 05:12 08/18/24 05:03 08/18/24 05:00 08/18/24 04:54 08/18/24 04:42 08/18/24 04:33 08/18/24 04:12 08/18/24 04:00 08/18/24 04:00 08/18/24 03:51 08/18/24 03:42 08/18/24 03:33 08/18/24 03:27 08/18/24 03:18 08/18/24 03:00 08/18/24 02:54 08/18/24 02:30 08/18/24 02:18 08/18/24 02:00 08/18/24 01:36 08/18/24 01:33 08/18/24 01:21 08/18/24 01:00 08/18/24 01:00 08/18/24 01:00 08/18/24 00:54 08/18/24 00:06 08/18/24 00:05 08/18/24 00:00 08/17/24 23:42 08/17/24 23:36 08/17/24 23:12 08/17/24 23:09 Nasal Cannula 2 08/17/24 23:00 08/17/24 23:00 08/17/24 22:57 08/17/24 22:26 Nasal Cannula 2 08/17/24 22:21 08/17/24 22:06 08/17/24 21:30 08/17/24 21:00 Nasal Cannula 2 08/17/24 21:00 08/17/24 21:00 08/17/24 20:30 08/17/24 20:24 08/17/24 20:00 08/17/24 20:00 08/17/24 19:57 08/17/24 19:30 Nasal Cannula 2 08/17/24 19:03 08/17/24 19:00 08/17/24 18:03 08/17/24 18:00 08/17/24 18:00 08/17/24 18:00 08/17/24 17:57 08/17/24 17:51 08/17/24 17:48 08/17/24 17:36 08/17/24 17:15 08/17/24 17:00 08/17/24 17:00 08/17/24 16:42 08/17/24 16:30 08/17/24 16:24 08/17/24 16:00 08/17/24 16:00 08/17/24 16:00 08/17/24 16:00 08/17/24 16:00 08/17/24 15:54 08/17/24 15:33 08/17/24 15:23 90 Room Air 08/17/24 15:12 Room Air 08/17/24 15:00 08/17/24 15:00 08/17/24 14:51 08/17/24 14:03 08/17/24 14:00 08/17/24 14:00 08/17/24 13:48 08/17/24 13:15 08/17/24 13:00 08/17/24 12:24 08/17/24 12:09 08/17/24 12:00 08/17/24 12:00 08/17/24 11:48 08/17/24 11:45 08/17/24 11:36 08/17/24 11:21 08/17/24 11:12 08/17/24 11:00 Nasal Cannula 2 08/17/24 11:00 08/17/24 11:00 Nasal Cannula 2 08/17/24 10:57 08/17/24 10:48 08/17/24 10:30 08/17/24 10:21 08/17/24 10:20 08/17/24 10:03 Nasal Cannula 2 08/17/24 10:00 08/17/24 10:00 08/17/24 10:00 08/17/24 09:57 08/17/24 09:53 08/17/24 09:53 08/17/24 09:53 08/17/24 09:53 08/17/24 09:51 08/17/24 09:48 Cardiovascular + regular rate Respiratory + respiratory effort normal Pre-Sedation Airway Assessment Smoking Status: Never smoker Hx Sleep Apnea: No Hx Difficult Intubation: No Short, Thick Neck: No Thyromental Distance: > or= 3.5 Finger Breadths Oral Cavity: + WNL Mallampati Class: III ASA: ASA3 NPO Status Date of Last Intake of Fluids: 08/17/24 Time of Last Intake of Fluids: 20:00 Date of Last Intake of Solid Food: 08/17/24 Time of Last Intake of Solid Foods: 20:00 Procedure Planning Contraindications for Sedation: none Current Medications Reviewed: Yes Notes The planned sedation has been discussed with the patient. Informed Consent was obtained. I have identified the patient, determined the appropriateness of sedation and have assessed the patient immediately prior to the procedure. All medicine(s) and interventions are by my order.
[2024-08-18] MEDS: BUPIVACAINE 0.25% PF 30 ML VIAL ONE (09:09)
[2024-08-18] MEDS: fentaNYL citrate PF 100 MCG/2 ML VIAL ONE (09:10)
[2024-08-18] MEDS: WATER, STERILE FOR INJ 10 ML VIAL ONE (09:10)
[2024-08-18] MEDS: LIDOCAINE 1% LOCAL 20 ML VIAL ONE (09:10)
[2024-08-18] MEDS: ceFAZolin 330 MG/ML 1 GM VIAL ONE (09:10)
[2024-08-18] MEDS: VANCOMYCIN HCL 1000MG/20ML VIAL ONE (09:10)
[2024-08-18] MEDS: MIDAZOLAM HCL 5 MG/ML 1 ML VIAL ONE (09:11)
[2024-08-18] MEDS ORDERED: oxyCODONE HCL IR 5 MG TAB (IMMEDIATE RELEASE) PO PRN (09:46)
--- NOTE | 2024-08-18 09:46 | Electrophysiology Report ---
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 She was felt to be a candidate for a pacemaker due to symptomatic nonreversible AV node dysfunction. Dual-chamber device was selected as she is currently in sinus rhythm and wished to maintain AV synchrony. Procedure in detail: The patient was informed of the risks benefits and alternatives to the intended procedure and she wished to proceed. She was taken to the electrophysiology suite in a fasting state. A preoperative antibiotic had been administered. The patient was monitored electrocardiographically throughout today's procedure and conscious sedation was administered per protocol. The left upper pectoral area was prepped and draped in usual sterile fashion. This area was anesthetized using subcutaneous administration of a xylocaine solution. An incision was made at this site and carried down to the prepectoralis fascia using sharp dissection. Electrocautery was also employed for dissection as well as for hemostasis. A device pocket was fashioned tissues above the pectoralis muscle. Subsequent to this maneuver the left axillary vein was accessed using modified Seldinger technique. A sheath was placed over guidewire and used to facilitate passage of a guiding catheter for mapping of the interventricular septum. Once an appropriate location was identified a pacing lead was advanced into the interventricular septum until the appropriate electrophysiologic characteristics were obtained. At this point the guiding catheter was removed. The proximal portion of the lead was then sutured the prepectoralis fascia using nonabsorbable suture. A sheath was placed over the remaining guidewire and used to facilitate passage of a pacing lead to the right atrium under fluoroscopic guidance. Adequate sensing and threshold parameters were obtained prior to active fixation of this lead to the endocardial surface. The proximal portion of the leads were then sutured the prepectoral fascia using nonabsorbable suture. The device pocket was irrigated with antibiotic solution. The leads were then attached to the device. The device and leads were then placed in the pocket and pocket was closed in 3 layers of absorbable suture. Steri-Strips and sterile dressing were applied. The device was tested noninvasively prior to conclusion the procedure. The patient tolerated procedure well there no immediate complications. Equipment used: New pulse generator: Parking Enforcement Manager Me-Mover. Model number: [id number] serial number [id number] Right atrial lead: Parking Enforcement Manager [employer]. Model number: 5076 serial number [id number] Right ventricular lead: Parking Enforcement Manager [employer]. Model number: 3830 serial number [id number] Measured data: Right atrial lead: P waves measured 2.3 mV. Pacing threshold 0.75 V at 0.4 ms with a pacing impedance of 532 ohms Right ventricular lead: No intrinsic R waves were measured. Pacing threshold was 0.5 V at 0.4 ms with a pacing PINS of 836 ohms Impression: Successful implantation of dual-chamber permanent pacemaker with left bundle pacing lead [facility] Electrophysiology codes Pacing Procedure 1: Pacin Insert/Replace Pacer A & V Miscellaneous Procedures Procedure 1: EP Miscellaneous: 35349-17 Vengraphy, extremity PG Moderate Sedation Codes Moderate Sedation Codes Procedure 1: Sedation/Anesthesia: 49893 Mod Sedation by the same physician;Init15 Min Child Age 5 & Up Procedure 2: Sedation/Anesthesia: 30420 Mod Sedation by the same physician; Ea [id number] Minutes
--- NOTE | 2024-08-18 09:46 | Post Anesthesia Assessment ---
Date of Service August 18, 2024 Post Sedation Assessment Vital Signs Temp Pulse Pulse Resp BP BP Pulse Ox 08/18/24 07:42 80 16 142/73 H 98 08/18/24 07:16 08/18/24 07:15 36.8 C 08/18/24 07:00 80 25 H 96 08/18/24 07:00 128/71 08/18/24 06:54 80 17 94 08/18/24 06:47 80 08/18/24 06:09 80 17 96 08/18/24 05:45 80 21 94 08/18/24 05:30 80 22 95 08/18/24 05:27 80 18 95 08/18/24 05:12 80 21 94 08/18/24 05:03 80 22 92 08/18/24 05:00 137/56 L 08/18/24 04:54 80 17 89 L 08/18/24 04:42 80 17 94 08/18/24 04:33 80 17 94 08/18/24 04:12 37.8 C H 80 20 94 08/18/24 04:00 143/76 H 08/18/24 04:00 143/76 H 08/18/24 03:51 80 16 94 08/18/24 03:42 80 23 94 08/18/24 03:33 80 24 94 08/18/24 03:27 80 20 94 08/18/24 03:18 80 24 93 08/18/24 03:00 139/72 08/18/24 02:54 80 22 93 08/18/24 02:30 80 21 93 08/18/24 02:18 80 26 H 93 08/18/24 02:00 136/77 08/18/24 01:36 80 18 95 08/18/24 01:33 80 21 94 08/18/24 01:21 80 20 94 08/18/24 01:00 151/71 H 08/18/24 01:00 151/71 H 08/18/24 01:00 80 17 94 08/18/24 00:54 80 19 93 08/18/24 00:06 80 18 94 08/18/24 00:05 80 08/18/24 00:00 133/74 08/17/24 23:42 80 18 95 08/17/24 23:36 80 18 95 08/17/24 23:12 80 16 94 08/17/24 23:09 80 19 94 08/17/24 23:00 37.9 C H 132/67 08/17/24 23:00 132/67 08/17/24 22:57 80 20 96 08/17/24 22:26 08/17/24 22:21 80 08/17/24 22:06 80 23 96 08/17/24 21:30 80 20 94 08/17/24 21:00 80 20 96 08/17/24 21:00 140/68 08/17/24 21:00 140/68 08/17/24 20:30 80 19 95 08/17/24 20:24 80 24 96 08/17/24 20:00 142/73 H 08/17/24 20:00 142/73 H 08/17/24 19:57 37.9 C H 80 23 96 08/17/24 19:30 80 19 96 08/17/24 19:03 80 20 08/17/24 19:00 121/63 08/17/24 18:03 80 15 08/17/24 18:00 164/79 H 08/17/24 18:00 164/79 H 08/17/24 18:00 164/79 H 08/17/24 17:57 80 21 91 08/17/24 17:51 80 19 94 08/17/24 17:48 80 25 H 95 08/17/24 17:36 80 23 95 08/17/24 17:15 80 26 H 93 08/17/24 17:00 132/69 08/17/24 17:00 80 23 94 08/17/24 16:42 80 20 92 08/17/24 16:30 80 20 96 08/17/24 16:24 80 17 95 08/17/24 16:00 134/67 08/17/24 16:00 134/67 08/17/24 16:00 134/67 08/17/24 16:00 134/67 08/17/24 16:00 80 21 94 08/17/24 15:54 80 25 H 92 08/17/24 15:33 80 21 93 08/17/24 15:23 08/17/24 15:12 80 26 H 90 08/17/24 15:00 144/71 H 08/17/24 15:00 144/71 H 08/17/24 14:51 80 29 H 96 08/17/24 14:03 80 21 96 08/17/24 14:00 143/86 H 08/17/24 14:00 143/86 H 08/17/24 13:48 80 21 97 08/17/24 13:15 80 20 97 08/17/24 13:00 139/71 08/17/24 12:24 80 17 96 08/17/24 12:09 80 19 95 08/17/24 12:00 141/63 H 08/17/24 12:00 141/63 H 08/17/24 11:48 80 15 96 08/17/24 11:45 80 24 97 08/17/24 11:36 80 19 94 08/17/24 11:21 80 15 96 08/17/24 11:12 80 16 95 08/17/24 11:00 80 17 92 08/17/24 11:00 157/69 H 08/17/24 11:00 08/17/24 10:57 80 20 94 08/17/24 10:48 80 20 93 08/17/24 10:30 80 24 94 08/17/24 10:21 80 18 94 08/17/24 10:20 37.5 C 08/17/24 10:03 80 16 92 08/17/24 10:00 145/69 H 08/17/24 10:00 145/69 H 08/17/24 10:00 145/69 H 08/17/24 09:57 80 18 93 08/17/24 09:53 143/70 H 08/17/24 09:53 143/70 H 08/17/24 09:53 143/70 H 08/17/24 09:53 143/70 H 08/17/24 09:51 80 28 H 90 08/17/24 09:48 80 20 86 L Pulse Ox O2 Del Method O2 Del Method O2 Flow Rate 08/18/24 07:42 Nasal Cannula 2 08/18/24 07:16 Nasal Cannula 2 08/18/24 07:15 08/18/24 07:00 08/18/24 07:00 08/18/24 06:54 Nasal Cannula 2 08/18/24 06:47 08/18/24 06:09 08/18/24 05:45 08/18/24 05:30 08/18/24 05:27 08/18/24 05:12 08/18/24 05:03 08/18/24 05:00 08/18/24 04:54 08/18/24 04:42 08/18/24 04:33 08/18/24 04:12 08/18/24 04:00 08/18/24 04:00 08/18/24 03:51 08/18/24 03:42 08/18/24 03:33 08/18/24 03:27 08/18/24 03:18 08/18/24 03:00 08/18/24 02:54 08/18/24 02:30 08/18/24 02:18 08/18/24 02:00 08/18/24 01:36 08/18/24 01:33 08/18/24 01:21 08/18/24 01:00 08/18/24 01:00 08/18/24 01:00 08/18/24 00:54 08/18/24 00:06 08/18/24 00:05 08/18/24 00:00 08/17/24 23:42 08/17/24 23:36 08/17/24 23:12 08/17/24 23:09 Nasal Cannula 2 08/17/24 23:00 08/17/24 23:00 08/17/24 22:57 08/17/24 22:26 Nasal Cannula 2 08/17/24 22:21 08/17/24 22:06 08/17/24 21:30 08/17/24 21:00 Nasal Cannula 2 08/17/24 21:00 08/17/24 21:00 08/17/24 20:30 08/17/24 20:24 08/17/24 20:00 08/17/24 20:00 08/17/24 19:57 08/17/24 19:30 Nasal Cannula 2 08/17/24 19:03 08/17/24 19:00 08/17/24 18:03 08/17/24 18:00 08/17/24 18:00 08/17/24 18:00 08/17/24 17:57 08/17/24 17:51 08/17/24 17:48 08/17/24 17:36 08/17/24 17:15 08/17/24 17:00 08/17/24 17:00 08/17/24 16:42 08/17/24 16:30 08/17/24 16:24 08/17/24 16:00 08/17/24 16:00 08/17/24 16:00 08/17/24 16:00 08/17/24 16:00 08/17/24 15:54 08/17/24 15:33 08/17/24 15:23 90 Room Air 08/17/24 15:12 Room Air 08/17/24 15:00 08/17/24 15:00 08/17/24 14:51 08/17/24 14:03 08/17/24 14:00 08/17/24 14:00 08/17/24 13:48 08/17/24 13:15 08/17/24 13:00 08/17/24 12:24 08/17/24 12:09 08/17/24 12:00 08/17/24 12:00 08/17/24 11:48 08/17/24 11:45 08/17/24 11:36 08/17/24 11:21 08/17/24 11:12 08/17/24 11:00 Nasal Cannula 2 08/17/24 11:00 08/17/24 11:00 Nasal Cannula 2 08/17/24 10:57 08/17/24 10:48 08/17/24 10:30 08/17/24 10:21 08/17/24 10:20 08/17/24 10:03 Nasal Cannula 2 08/17/24 10:00 08/17/24 10:00 08/17/24 10:00 08/17/24 09:57 08/17/24 09:53 08/17/24 09:53 08/17/24 09:53 08/17/24 09:53 08/17/24 09:51 08/17/24 09:48 Recovery Score Activity: Moves 4 extremities Respiration: Deep Breath/Cough Circulation: +/-20% PreAnes Value Consciousness: Arouseable (by name) Oxygen Saturation: O2 needed for >90% Discharge Sedation Level of Care: Fast Track Phase II Post Sedation Plan On clinical assessment, the patient appears to have tolerated the sedation without complications. Patient is recovering as anticipated. Patient will continue to be monitored by nursing and may be discharged when sedation discharge criteria are met per below protocol. Upon Completions of procedure up to 15 minutes continue every 5 minute vital signs and the P.A.R. score; then discharge to a Phase I or Fast Track to Phase II per the following guidelines: * Discharge Patient to appropriate Phase II area if PAR is 8 or greater or return to pre- procedure baseline. The post - procedure orders will be as directed. * If PAR score is less than 8 or not return to pre-procedure baseline then patient will follow Phase I monitoring till PAR is reached for Phase II. The Phase I may be done in procedure room or may call to secure a Phase I area. * If naloxone or flumazenil are used for reversal, hold in Phase I for continued monitoring from when last reversal dose was given for a minimum of 60 minutes or longer pending the nurse and/or physician discretion of patient condition before discharge to Phase II. Please call the Sedation Physician to re-evaluate and complete post-note for discharge to Phase II area. Do NOT discharge from procedure sedation or Phase 1 until post- sedation evaluation note is complete by procedure /sedation MD Sedation Discharge Instructions to be given to the patient at discharge to home.
[2024-08-18] MEDS ORDERED: Nursing to Pharmacy Communication SCH (11:00)
[2024-08-18] MEDS: INSULIN ASPART PER UNIT CHARGE SC SCH (11:47)
--- NOTE | 2024-08-18 13:09 | Hospitalist Progress Note ---
"Date of Service August 18, 2024 Assessment & Plan (1) CHB (complete heart block): (2) Diabetes mellitus type 2, uncontrolled: (3) Hypothyroidism: (4) Essential hypertension: Plan Erma is a 83F with a PMHx asthma, gout, HTN, HLD and diabetes who presents to the hospital with episode of near syncope. Found to be in complete heart block. CXR with concerns for CHF and PNA - however no O2 requirment, WBC, fevers, symptoms or hypoxia. Admitted for cardiology evaluation and pacemaker placement #Complete Heart Block s/p pacemaker placement Atenolol was held on admission, patient did not have improvement in her heart block with this Lyme testing negative TTE with hyperdynamic EF 70%, no regional wall motion abnormalities. Normal RVSP. He is now in complete heart block compared to prior echo Pending permanent pacemaker placement 08/1808/17/2024 transvenous pacer was placed due to progressive pulmonary edema, hypoxia, and SANDOVAL suspected to be due to poor cardiac output. Following this she had rapid improvement in oxygen requirement to 2 L S/p pacemaker placement 08/18. Oxygen requirement improving near resolved. Continue incentive spirometry. Diuresis deferred as she is rapidly improving with lutheran of her CO. Mildly hyponatremic, trended. Diet resumed Will observe overnight and hopeful for discharge tomorrow. PT/OT pending. #DMT2 - poorly controlled Home Meds: Ozempic (Sundays) - HELD BSG 283 on arrival with last documented A1c 10.1 02/2023 AM A1c Pharmacy glycemic management following, BSG slightly above goal but improved from prior. #HTN | HLD Continue statin Creatinine normalized, ARB resumed May resume beta-blockers if needed for hypertension control now that pacemaker has been placed SANDOVAL Resolved. Suspected due to poor flow with third-degree heart block/diminished CO #Hypothyroidism TSH mildly elevated 5.7, free T4 WNL Continue Synthroid - dose recently adjusted, will not make further dose ad justments at this time, continue outpatient follow up #Asthma - Continue home inhalers. Dispo: Downgraded to PCU post pacer placement DVT PPx: Held periprocedurally. Can start Lovenox 08/19 if needed CODE STATUS: FULL CODE Admission and Anticipated Discharge Date Admission Date: August 15, 2024 Subjective Seen post pacer placement on arrival to bedside. Somewhat sleepy following placement, but is rapidly becoming more alert. Energy improved. No chest pain, chest pressure lightheadedness, dizziness, palpitations. Has not felt much shortness of breath while on oxygen, but has rapidly improving oxygen requirements. No leg edema. Pain adequately controlled overlying her surgical site. Physical Exam Physical Exam: General: A&Ox3. NAD. Cooperative. HEENT: Atraumatic, normocephalic. Vision and hearing grossly intact. Pacing wire no longer present. Left thorax pacer operative site with overlying dressing C/D/ Pulm: Diminished, slight crackles in the bases but otherwise clear symmetrical chest rise. 2 L nasal cannula Cardiac: Heart rate 90s, regular. Radial pulses intact and symmetrical. Extremities: No lower extremity pitting edema is present. Moves all extremities equally Results & Data Results & Data Vital Signs (Past 12 Hours) Vital Signs Temp Pulse Pulse Resp BP BP Pulse Ox 08/18/24 11:54 36.5 C 106 H 19 139/72 92 08/18/24 10:32 103 H 147/74 H 97 08/18/24 10:17 85 126/75 94 08/18/24 10:05 96 H 14 135/77 96 08/18/24 09:50 102 H 14 131/72 96 08/18/24 09:47 36.7 C 99 H 131/72 08/18/24 07:42 80 16 142/73 H 98 08/18/24 07:16 08/18/24 07:15 36.8 C 08/18/24 07:00 80 25 H 96 08/18/24 07:00 128/71 08/18/24 06:54 80 17 94 08/18/24 06:47 80 08/18/24 06:09 80 17 96 08/18/24 05:45 80 21 94 08/18/24 05:30 80 22 95 08/18/24 05:27 80 18 95 08/18/24 05:12 80 21 94 08/18/24 05:03 80 22 92 08/18/24 05:00 137/56 L 08/18/24 04:54 80 17 89 L 08/18/24 04:42 80 17 94 08/18/24 04:33 80 17 94 08/18/24 04:12 37.8 C H 80 20 94 08/18/24 04:00 143/76 H 08/18/24 04:00 143/76 H 08/18/24 03:51 80 16 94 08/18/24 03:42 80 23 94 08/18/24 03:33 80 24 94 08/18/24 03:27 80 20 94 08/18/24 03:18 80 24 93 08/18/24 03:00 139/72 08/18/24 02:54 80 22 93 08/18/24 02:30 80 21 93 08/18/24 02:18 80 26 H 93 08/18/24 02:00 136/77 08/18/24 01:36 80 18 95 08/18/24 01:33 80 21 94 08/18/24 01:21 80 20 94 O2 Del Method O2 Flow Rate 08/18/24 11:54 Nasal Cannula 2 08/18/24 10:32 Nasal Cannula 2 08/18/24 10:17 Nasal Cannula 2 08/18/24 10:05 Nasal Cannula 2 08/18/24 09:50 Nasal Cannula 2 08/18/24 09:47 08/18/24 07:42 Nasal Cannula 2 08/18/24 07:16 Nasal Cannula 2 08/18/24 07:15 08/18/24 07:00 08/18/24 07:00 08/18/24 06:54 Nasal Cannula 2 08/18/24 06:47 08/18/24 06:09 08/18/24 05:45 08/18/24 05:30 08/18/24 05:27 08/18/24 05:12 08/18/24 05:03 08/18/24 05:00 08/18/24 04:54 08/18/24 04:42 08/18/24 04:33 08/18/24 04:12 08/18/24 04:00 08/18/24 04:00 08/18/24 03:51 08/18/24 03:42 08/18/24 03:33 08/18/24 03:27 08/18/24 03:18 08/18/24 03:00 08/18/24 02:54 08/18/24 02:30 08/18/24 02:18 08/18/24 02:00 08/18/24 01:36 08/18/24 01:33 08/18/24 01:21 PG Care Time/CCT Total # of Minutes Spent Total Time Spent with Patient: Total time spent is greater than 50% in coordination of care (as documented) at patient's floor/unit and/or counseling patient: Coding Level of Care Code 38610 SUB INP/OBS CARE 3/50MIN Diagnoses CHB (complete heart block) I44.2 Diabetes mellitus type 2, uncontrolled E11.65 Hypothyroidism E03.9 Essential hypertension I10"
--- NOTE | 2024-08-18 13:39 | Billing Data ---
Date of Service August 18, 2024 Coding Level of Care Code 68861 SUB INP/OBS CARE
--- NOTE | 2024-08-18 13:51 | Pharmacy Report ---
Pharmacy Glycemic Short Note 2 - Date of Service August 18, 2024 - Glycemic Short BSG Results (Last 24 hours): 08/17/24 08/17/24 08/17/24 14:59 16:37 21:09 Glucose POC Glucose 255 H 244 H 183 H 08/17/24 08/18/24 08/18/24 23:05 05:26 05:32 Glucose 196 H POC Glucose 180 H 196 H 08/18/24 10:34 Glucose POC Glucose 187 H OUTPATIENT ANTIDIABETIC REGIMEN: * Semaglutide 2 mg SC weekly on Sunday A1c= 9% ASSESSMENT: 08/18 * BSGs improved over last 24 hrs, however slightly above goal * 36 units SQ insulin given over last 24 hrs while mostly NPO * Fasting BSG 180-190s this AM with 20 units basal on board and after receipt of ~5 units correctional insulin last evening. Will increase basal insulin scale slightly * Novolog dosing parameters are currently based upon weight and "mod-severe" stress level. Will continue for now given slightly elevated BSG trend 08/17 * Erma is a 83 yo F with history of T2DM, HTN, HLD, gout, complex sleep apnea syndrome, mitral regurgitation who presented with SANDOVAL and complete heart block. She was taken to lab pack chemist today for transvenous pacemaker and is awaiting permanent pacemaker placement. * Severe hyperglycemia this morning, BSG 330 mg/dL. Both basal and bolus insulin was increased at that time. Patient was given an IV insulin bolus just prior to cardiac procedure. Per discussion with Hospitalist, anticipate improvement in hyperglycemia s/p procedure. Will hold of on IV insulin infusion and attempt to manage with SC insulin for now. PLAN FOR INPATIENT GLYCEMIC CONTROL: * Basal insulin * Lantus 13 units SC at 1215, then Lantus 0-7-13 units SC BID per scale * Bolus insulin * NovoLog per scale ACHS or Q6hrs while NPO * Goal Range: Low 110 mg/dL - High 140 mg/dL * Correction Factor: 20 mg/dL/unit * Nutritional / Prandial insulin per carb ratio of 1 unit per 8 grams CHO consumed
[2024-08-18] MEDS: ACETAMINOPHEN 325 MG TAB PO PRN (14:20)
[2024-08-18] MEDS: cefTRIAXone SODIUM 2,000 MG/50 ML BAG IV SCH (16:04)
[2024-08-18 16:05] LABS: Basophils # (auto) 0.01 K/uL (0.00-0.20); Basophils % (auto) 0.1 %; Eosinophils # (auto) 0.04 K/uL (0.00-0.50); Eosinophils % (auto) 0.4 %; Hemoglobin 11.9 g/dl (12.0-16.0); Immature Granulocytes # (auto) 0.13 K/uL (0.01-0.20); Immature Granulocytes % (auto) 1.4 %; Lymphocytes # (auto) 1.16 K/uL (1.20-3.40); Lymphocytes % (auto) 12.9 %; Mean Corpuscular Hemoglobin 29.2 pg (25.0-34.0); Mean Corpuscular Volume 83.3 fL (80.0-100.0); Monocytes % (auto) 5.5 %; Neutrophils # (auto) 7.18 K/uL (1.40-6.50); Neutrophils % (auto) 79.7 %; Platelet Count 161 K/uL (130-400); RDW Coefficient of Variation 12.7 % (11.5-14.5); RDW Standard Deviation 38.7 fL (36.4-46.3); Red Blood Count 4.08 M/uL (4.20-5.40); White Blood Count 9.02 K/ul (4.8-10.8)
[2024-08-18] MEDS ORDERED: ceFAZolin 2000MG 2,000 MG/15 ML SYR IV ONE (16:30)
[2024-08-18 17:06] LABS: Influenza A virus by PCR Negative (Neg); Influenza B virus by PCR Negative (Neg); RSV by PCR Negative (Neg); SARS CoV2 RNA(COVID-19) Ceph NEGATIVE (Negative)
[2024-08-18] MEDS ORDERED: VANCOMYCIN CONSULT ACTIVE PRN (17:58)
[2024-08-18] MEDS: VANCOMYCIN HCL 1,750 MG in SODIUM CHLORIDE 0.9% 500 ML IV ONE (18:31)
--- NOTE | 2024-08-18 18:31 | Electrocardiogram Report ---
Test Reason : Blood Pressure : */* mmHG Vent. Rate : 93 BPM Atrial Rate : 93 BPM P-R Int : 184 ms QRS Dur : 102 ms QT Int : 356 ms P-R-T Axes : 67 -41 141 degrees QTcB Int : 442 ms Atrial-sensed ventricular-paced rhythm Abnormal ECG Confirmed by Issac Solorio ([id number]) on 08/18/2024 6:30:51 PM Referred By: REFERRED SELF Confirmed By: Issac Solorio
[2024-08-18] MEDS: METOPROLOL TARTRATE 1 MG/ML VIAL IV PRN (19:59)
[2024-08-18] MEDS: MAGNESIUM SULFATE / D5W 1 GM/100 ML BAG IV ONE (20:30)
[2024-08-18] MEDS: METOPROLOL TARTRATE 25 MG TAB PO SCH (21:55)
[2024-08-18] MEDS ORDERED: AMIODARONE IV BOLUS & DRIP IV STA (23:33)
[2024-08-18] MEDS: POLYETHYLENE (MIRALAX) 17 GM PACK PO PRN (23:33)
[2024-08-18] MEDS ORDERED: 0.2 MICRON FILTER SET 1 EACH IV STA (23:33)
[2024-08-18] MEDS ORDERED: STAT IV Infusion **Titration per Protocol STA (23:33)
--- NOTE | 2024-08-18 23:37 | Communication Note ---
Date of Service: August 18, 2024 Notified by RN shortly after shift change that patient's HR was persistently elevated with range between 130-170 bpm. EKG demonstrated A-fib with RVR. Patien t asymptomatic, BP stable. Denies previous dx of A-fib. S/P IV Metoprolol 5mg x3 - remained in A-fib with rate in the 130s Discussed with Dr. Rodgers - recommended trial of PO Metoprolol Tartrate 25mg Q6H vs Amiodarone Trialed PO Metoprolol 25mg x1 - 2 hours later, RN reported continued RVR, rates generally around 130 but with sporadic jumps up to 160 bpm. Subsequently started on Amiodarone - s/p bolus, drip ongoing.
[2024-08-18] MEDS: AMIODARONE / D5W 150 MG/100 ML BAG IV STA (23:53)
[2024-08-19] MEDS: AMIODARONE / D5W 360 MG/200 ML BAG IV ONE (00:04)
[2024-08-19 05:54] LABS: Basophils # (auto) 0.03 K/uL (0.00-0.20); Basophils % (auto) 0.3 %; Eosinophils % (auto) 1.2 %; Hematocrit (blood only) 34.3 % (37.0-47.0); Hemoglobin 11.9 g/dl (12.0-16.0); Immature Granulocytes # (auto) 0.03 K/uL (0.01-0.20); Immature Granulocytes % (auto) 0.3 %; Lymphocytes # (auto) 1.94 K/uL (1.20-3.40); Lymphocytes % (auto) 22.4 %; Mean Corpuscular Hemoglobin 28.8 pg (25.0-34.0); Mean Corpuscular Hgb Conc 34.7 g/dL (32.0-36.0); Mean Corpuscular Volume 83.1 fL (80.0-100.0); Mean Platelet Volume 10.1 fL (9.4-12.4); Monocytes # (auto) 0.53 K/uL (0.11-0.59); Monocytes % (auto) 6.1 %; Neutrophils # (auto) 6.03 K/uL (1.40-6.50); Neutrophils % (auto) 69.7 %; Platelet Count 183 K/uL (130-400); RDW Coefficient of Variation 12.8 % (11.5-14.5); RDW Standard Deviation 38.8 fL (36.4-46.3); Red Blood Count 4.13 M/uL (4.20-5.40); White Blood Count 8.66 K/ul (4.8-10.8)
[2024-08-19] MEDS: AMIODARONE / D5W 360 MG/200 ML BAG IV SCH (06:06)
[2024-08-19 06:09] LABS: BUN Creatinine Ratio 24.7 (10-20); Calcium 8.6 mg/dl (8.6-10.3); Creatinine Clr Calc Pharmacy 63.8 ml/min
[2024-08-19 08:01] LABS: Magnesium 1.9 mg/dl (1.7-2.4)
--- NOTE | 2024-08-19 08:06 | XRay Report ---
EXAM: XR chest 2V PA/lateral CLINICAL HISTORY: EVALUATION FOR PNEUMOTHORAX AND LEAD PLACEMENT JTF. TECHNIQUE: X-ray images of the chest were obtained in posteroanterior (PA) and lateral projections. COMPARISON: 08/16/2024. FINDINGS: Pulmonary Parenchyma: Interval new, cardiac pacemaker leads seen in situ. Raised right hemidiaphragm obscuring the right costophrenic recess. Minimal blunting of the left costophrenic angle could be due to minimal pleural effusion/thickening. Small atelectatic band traversing in the right lower zone. Heart and Mediastinum: Possible cardiomegaly. No mediastinal widening or masses. No hilar or mediastinal lymphadenopathy. Bony Thorax: Bony thorax appears intact without fractures or deformities. Soft Tissues: Soft tissues overlying the chest wall are unremarkable. IMPRESSION: 1. Interval new, cardiac pacemaker leads in situ. 2. Raised right hemidiaphragm. Chest ultrasound may be done if clinically warranted. Intervention new. 3. Minimal blunting of the left costophrenic angle could be due to minimal pleural effusion/thickening. 4. Comparing the previous x-ray dated 08/16/2024 there is interval progression in context of raised right hemidiaphragm. Electronically signed by Chris Hansen 08-19-2024 08:05 AM
[2024-08-19] MEDS: DOXYCYCLINE HYCLATE 100 MG in DEXTROSE 5% MINI-B 100 ML IV SCH (08:55)
--- NOTE | 2024-08-19 09:35 | Hospitalist Progress Note ---
"Date of Service August 19, 2024 Assessment & Plan (1) CHB (complete heart block): (2) Diabetes mellitus type 2, uncontrolled: (3) Hypothyroidism: (4) Essential hypertension: Plan Erma is a 83F with a PMHx asthma, gout, HTN, HLD and diabetes who presents to the hospital with episode of near syncope. Found to be in complete heart block. CXR with concerns for CHF and PNA - however no O2 requirment, WBC, fevers, symptoms or hypoxia. Admitted for cardiology evaluation and pacemaker placement #Complete Heart Block s/p pacemaker placement Atenolol was held on admission, patient did not have improvement in her heart block with this Lyme testing negative TTE with hyperdynamic EF 70%, no regional wall motion abnormalities. Normal RVSP. He is now in complete heart block compared to prior echo Pending permanent pacemaker placement 08/1808/17/2024 transvenous pacer was placed due to progressive pulmonary edema, hypoxia, and SANDOVAL suspected to be due to poor cardiac output. Following this she had rapid improvement in oxygen requirement to 2 L S/p pacemaker placement 08/18. Acute hypoxic respiratory failure Rapidly improved following pacemaker placement. Suspected to be partially atelectatic and partially pulmonary edema from reduced cardiac output. Repeat chest x-ray is with evidence of elevated hemidiaphragm. Continue incentive spirometry hourly, medical management. No evidence of pulm edema on repeat. Patient did have a pacemaker placed, and separately had 1 episode of nausea/vomiting although she does not think that she aspirated. She had 1 fever greater than 38. This may be atelectatic and noninfectious in the setting of hemidiaphragm elevation. Given pacer placement and hardware, fever, hypoxia, and possible for aspiration event treated empirically pending further workup White count and procalcitonin negative. No recurrent fevers. Chest x-ray clear although some hemidiaphragm elevation. Likely atelectatic, antibiotics discontinued. She did get some flushing with doxycycline similar to an allergy she has to wind, no mucosal membrane involvement. Was given 1 dose of Benadryl. New A-fib with RVR A-fib RVR overnight 08/18 - 08/19 Rate [id number] fluctuating on morning assessment 08/19 Inadequate improvement with metoprolol IV x 3 doses overnight, subsequently started on amiodarone drip Converted to sinus 08/19/2024 in the morning Cardiology following. Did not recommend coagulation until at least evening of 08/19 - 08/20 due to hematoma risk.Continued on amiodarone 200 mg twice daily. Anticipate 6 weeks of treatment and then may discontinue medical therapy at that time. Appreciate recommendations and care. Hyponatremia Without evidence of volume overload Urine studies pending Trend daily Fluid restricted until urine studies available. With somewhat poor p.o. intake may be solute depletion #DMT2 - poorly controlled Home Meds: Ozempic (Sundays) - HELD BSG 283 on arrival with last documented A1c 10.1 02/2023 AM A1c Pharmacy glycemic management following, BSG control improving but still slightly above goal #HTN | HLD Continue statin Creatinine normalized, ARB continued SANDOVAL Resolved. Suspected due to poor flow with third-degree heart block/diminished CO #Hypothyroidism TSH mildly elevated 5.7, free T4 WNL Continue Synthroid - dose recently adjusted, will not make further dose adjustments at this time, continue outpatient follow up #Asthma - Continue home inhalers. Dispo: Downgraded to PCU post pacer placement DVT PPx: SCDs. Chemical prophylaxis held until 08/20. CODE STATUS: FULL CODE Admission and Anticipated Discharge Date Admission Date: August 15, 2024 Subjective Seen the bedside. Denies chest pain chest pressure shortness of breath difficulty breathing. Has had a few sneezing fits. No recurrent fever. She has not felt sick or feverish. She reports she was hoping to go home today and expresses some sadness over having complications and remaining in the ER she is hopeful to go home for her birthday but understands her condition and appreciates care. No sputum production Physical Exam Physical Exam: General: A&Ox3. NAD. Cooperative. HEENT: Atraumatic, normocephalic. Vision and hearing grossly intact. Pacing wire no longer present. Left thorax pacer operative site with overlying dressing C/D/ Pulm: Diminished, right greater than left, slight basilar crackles. 1 L nasal cannula Cardiac: Irregularly irregular, fluctuating between [id number]. +sm radial pulses intact and symmetrical. Subsequently on re-eval converted, nsr rate 80s. Extremities: No lower extremity pitting edema is present. Moves all extremities equally Results & Data Results & Data Vital Signs (Past 12 Hours) Vital Signs Temp Pulse Pulse Pulse Resp BP BP 08/19/24 07:43 36.4 C L 99 H 19 130/80 08/19/24 07:20 133 H 08/19/24 03:34 36.9 C 107 H 23 120/77 08/18/24 23:38 37.2 C 96 H 18 138/87 08/18/24 21:33 140 H Pulse Ox O2 Del Method O2 Flow Rate 08/19/24 07:43 93 Nasal Cannula 1 08/19/24 07:20 08/19/24 03:34 90 Nasal Cannula 2 08/18/24 23:38 90 Nasal Cannula 1.5 08/18/24 21:33 PG Care Time/CCT Total # of Minutes Spent Total Time Spent with Patient: Total time spent is greater than 50% in coordination of care (as documented) at patient's floor/unit and/or counseling patient: Coding Level of Care Code 27162 SUB INP/OBS CARE 3/50MIN Diagnoses CHB (complete heart block) I44.2 Diabetes mellitus type 2, uncontrolled E11.65 Hypothyroidism E03.9 Essential hypertension I10"
--- NOTE | 2024-08-19 09:56 | Cardiology Progress Note ---
Date of Service August 19, 2024 Assessment & Plan (1) CHB (complete heart block): (2) Essential hypertension: (3) Mitral regurgitation: Plan ASSESSMENT/PLAN: 1. Complete heart block: Presumably age-related degeneration. She underwent implantation of a dual-chamber pacemaker yesterday. No evident complication. Normal function today. 2. Hypertension: Well-controlled currently. 3. Mitral regurgitation: Mild. 4. Dyspnea: This seems improved. 5. Fever: She did have a fever yesterday afternoon. No obvious source of infection. Being treated with empiric antibiotics. Possible that she simply has atelectasis due to limited mobility over the past few days. Hopefully this will improve with ambulation. No obvious device related infection. 6. Atrial fibrillation: She developed atrial fibrillation yesterday evening. She converted this morning shortly after I saw her to the sinus rhythm. No known history of atrial fibrillation. Unclear if this could be related to her implant. I would favor some oral amiodarone for approximately 6 weeks. I think we could also consider starting anticoagulation tomorrow with Eliquis. If there is no recurrent atrial fibrillation on her device interrogations perhaps this is simply related to her procedure and we can discontinue her medical therapy in a few weeks. Admission and Anticipated Discharge Date Admission Date: August 15, 2024 Subjective This morning the patient feels better. She states that her appetite is improved. No pain at the device implant site. Unaware that she had a fever last night, but was quite tired throughout the course of the day and had a restless evening. Anxious to ambulate. Review of Systems Review of Systems: Per HPI Physical Exam Physical Exam: She is alert and oriented x3. Mood affect appear normal. She answered all questions appropriately. HEENT: Sclerae are anicteric. Pupils are equal and reactive to light and accommodation. Extraocular movements were intact. Neuro: Cranial nerves intact Lungs: Clear breath sounds. Normal respiratory effort. Cardiac: The rhythm was irregular and fast. S1 and S2 were normal. Soft systolic murmur. The PMI was not markedly displaced on palpation. Chest: Device implant site without significant erythema, swelling or pain. No bleeding. No hematoma Extremities: Patient has bilateral radial pulses that are equal in intensity. There is no evidence cyanosis or clubbing. There was no evidence of significant peripheral edema bilaterally. Skin: There are no rashes noted on examination today. ENMT: Mallampati Class: III Respiratory: normal respiratory effort Cardiovascular: Rate/Rhythm: regular rate and + bradycardic Results & Data Vital Signs (Past 12 Hours) Vital Signs Temp Pulse Pulse Pulse Resp BP BP 08/19/24 07:43 36.4 C L 99 H 19 130/80 08/19/24 07:20 133 H 08/19/24 03:34 36.9 C 107 H 23 120/77 08/18/24 23:38 37.2 C 96 H 18 138/87 Pulse Ox O2 Del Method O2 Flow Rate 08/19/24 07:43 93 Nasal Cannula 1 08/19/24 07:20 08/19/24 03:34 90 Nasal Cannula 2 08/18/24 23:38 90 Nasal Cannula 1.5 Laboratory Results Abnormal Lab Results 08/18/24 08/18/24 08/18/24 10:34 15:42 17:02 WBC 9.02 RBC 4.08 L Hgb 11.9 L Hct 34.0 L MCV 83.3 MCH 29.2 MCHC 35.0 RDW Std Deviation 38.7 RDW Coeff of Danielle 12.7 Plt Count 161 MPV 10.0 Immature Gran % (Auto) 1.4 Neut % (Auto) 79.7 Lymph % (Auto) 12.9 [place] % (Auto) 5.5 Eos % (Auto) 0.4 Baso % (Auto) 0.1 Neut # (Auto) 7.18 H Lymph # (Auto) 1.16 L [place] # (Auto) 0.50 Eos # (Auto) 0.04 Baso # (Auto) 0.01 Immature Gran # (Auto) 0.13 Sodium Potassium Chloride Carbon Dioxide Anion Gap BUN Creatinine Est Cr Clr Drug Dosing eGFR BUN/Creatinine Ratio Glucose POC Glucose 187 H 192 H Calcium Magnesium Procalcitonin 0.30 Nasal Screen MRSA (PCR) SARS-CoV-2 (PCR) Influenza Type A (PCR) Influenza Type B (PCR) RSV (RT-PCR) 08/18/24 08/18/24 08/19/24 20:05 Unknown 05:01 WBC 8.66 RBC 4.13 L Hgb 11.9 L Hct 34.3 L MCV 83.1 MCH 28.8 MCHC 34.7 RDW Std Deviation 38.8 RDW Coeff of Danielle 12.8 Plt Count 183 MPV 10.1 Immature Gran % (Auto) 0.3 Neut % (Auto) 69.7 Lymph % (Auto) 22.4 [place] % (Auto) 6.1 Eos % (Auto) 1.2 Baso % (Auto) 0.3 Neut # (Auto) 6.03 Lymph # (Auto) 1.94 [place] # (Auto) 0.53 Eos # (Auto) 0.10 Baso # (Auto) 0.03 Immature Gran # (Auto) 0.03 Sodium 127 L Potassium 4.0 Chloride 96 L Carbon Dioxide 24 Anion Gap 7 BUN 18 Creatinine 0.73 Est Cr Clr Drug Dosing 63.8 eGFR 81.04 BUN/Creatinine Ratio 24.7 H Glucose 251 H POC Glucose 174 H Calcium 8.6 Magnesium 1.9 Procalcitonin Nasal Screen MRSA (PCR) Positive A SARS-CoV-2 (PCR) NEGATIVE Influenza Type A (PCR) Negative Influenza Type B (PCR) Negative RSV (RT-PCR) Negative 08/19/24 07:55 WBC RBC Hgb Hct MCV MCH MCHC RDW Std Deviation RDW Coeff of Danielle Plt Count MPV Immature Gran % (Auto) Neut % (Auto) Lymph % (Auto) [place] % (Auto) Eos % (Auto) Baso % (Auto) Neut # (Auto) Lymph # (Auto) [place] # (Auto) Eos # (Auto) Baso # (Auto) Immature Gran # (Auto) Sodium Potassium Chloride Carbon Dioxide Anion Gap BUN Creatinine Est Cr Clr Drug Dosing eGFR BUN/Creatinine Ratio Glucose POC Glucose 212 H Calcium Magnesium Procalcitonin Nasal Screen MRSA (PCR) SARS-CoV-2 (PCR) Influenza Type A (PCR) Influenza Type B (PCR) RSV (RT-PCR) Diagnostic Findings Chest x-ray obtained this morning demonstrated stable lead position without pneumothorax. Elevated right hemidiaphragm. I performed Colie device interrogation of her dual-chamber permanent pacemaker. Sensing appears adequate on both leads. Unable to perform atrial threshold testing due to atrial fibrillation. Normal RV threshold.
--- NOTE | 2024-08-19 17:42 | Electrocardiogram Report ---
Test Reason : Blood Pressure : */* mmHG Vent. Rate : 134 BPM Atrial Rate : * BPM P-R Int : * ms QRS Dur : 126 ms QT Int : 280 ms P-R-T Axes : * 95 -80 degrees QTcB Int : 418 ms Atrial fibrillation with rapid ventricular response with premature ventricular or aberrantly conducte d complexes Right bundle branch block T wave abnormality, consider inferolateral ischemia Abnormal ECG When compared with ECG of 18-Aug-2024 10:07, Atrial fibrillation has replaced Electronic ventricular pacemaker Confirmed by Issac Solorio [id number]) on 08/19/2024 5:42:02 PM Referred By: REFERRED SELF Confirmed By: Issac Solorio
[2024-08-19] MEDS: AMIODARONE 200 MG TAB PO SCH (17:44)
[2024-08-19] MEDS: diphenhydrAMINE 50 MG/ML VIAL IV STA (19:30)
[2024-08-20 05:35] LABS: Basophils # (auto) 0.03 K/uL (0.00-0.20); Basophils % (auto) 0.5 %; Eosinophils # (auto) 0.34 K/uL (0.00-0.50); Hemoglobin 11.9 g/dl (12.0-16.0); Immature Granulocytes # (auto) 0.02 K/uL (0.01-0.20); Immature Granulocytes % (auto) 0.4 %; Lymphocytes # (auto) 1.57 K/uL (1.20-3.40); Lymphocytes % (auto) 27.6 %; Mean Corpuscular Hemoglobin 28.9 pg (25.0-34.0); Mean Corpuscular Volume 82.5 fL (80.0-100.0); Mean Platelet Volume 9.8 fL (9.4-12.4); Monocytes # (auto) 0.43 K/uL (0.11-0.59); Monocytes % (auto) 7.6 %; Neutrophils % (auto) 57.9 %; Platelet Count 186 K/uL (130-400); RDW Coefficient of Variation 12.6 % (11.5-14.5); RDW Standard Deviation 38.1 fL (36.4-46.3); Red Blood Count 4.12 M/uL (4.20-5.40); White Blood Count 5.69 K/ul (4.8-10.8)
[2024-08-20 05:49] LABS: BUN Creatinine Ratio 22.5 (10-20); Calcium 8.8 mg/dl (8.6-10.3); Potassium 3.7 mmol/L (3.5-5.1)
[2024-08-20] MEDS: APIXABAN 5 MG TABLET PO SCH (10:30)
[2024-08-20] MEDS: cefTRIAXone SODIUM 2,000 MG/50 ML BAG IV STA (10:30)
--- NOTE | 2024-08-20 19:40 | Hospitalist Progress Note ---
Date of Service August 20, 2024 Assessment & Plan (1) CHB (complete heart block): (2) Diabetes mellitus type 2, uncontrolled: (3) Hypothyroidism: (4) Essential hypertension: Plan 84 years old female with PMH of FULL CODE @ home, overweight with BMI 28.3 (height 170.2 cm; weight 82.1 kg), mild intermittent asthma, never intubated or mechanically ventilated, gout, HTN, HLD and diabetes who presented to [facility] on 08/15/2024 with an episode of near syncope. Patient was subsequently found to be in complete heart block. Portable CXR (08/15/2024, 10:27am) demonstrated mild pulmonary vascular congestion and possible LLL infiltrate. However, patient remained afebrile with no complaints of shortness of breath, cough, wheeze, or pleurisy, and had WBC elevation or supplemental oxygen requirement. Patient was subsequently admitted to the inpatient hospitalist service @ [facility] on 08/15/2024 with the following diagnosis: 1. Complete Heart Block. The following medical issues are being addressed: #Complete Heart Block s/p pacemaker placement. RESOLVED. Atenolol was held on admission, patient did not have improvement in her heart block with this Lyme testing negative TTE with hyperdynamic EF 70%, no regional wall motion abnormalities. Normal RVSP. He is now in complete heart block compared to prior echo Pending permanent pacemaker placement 08/1808/17/2024 transvenous pacer was placed due to progressive pulmonary edema, hypoxia, and SANDOVAL suspected to be due to poor cardiac output. Following this she had rapid improvement in oxygen requirement to 2 L S/p pacemaker placement 08/18. Acute hypoxic respiratory failure. RESOLVED. Rapidly improved following pacemaker placement. Suspected to be partially atelectatic and partially pulmonary edema from reduced cardiac output. Repeat chest x-ray is with evidence of elevated hemidiaphragm. Continue incentive spirometry hourly, medical management. No evidence of pulm edema on repeat. Patient did have a pacemaker placed, and separately had 1 episode of nausea/vomiting although she does not think that she aspirated. She had 1 fever greater than 38. This may be atelectatic and noninfectious in the setting of hemidiaphragm elevation. Given pacer placement and hardware, fever, hypoxia, and possible for aspiration event treated empirically pending further workup White count and procalcitonin negative. No recurrent fevers. Chest x-ray clear although some hemidiaphragm elevation. Likely atelectatic, antibiotics discontinued. She did get some flushing with doxycycline similar to an allergy she has to wind, no mucosal membrane involvement. Was given 1 dose of Benadryl. New A-fib with RVR (as noted on 08/18/2024, 7:48pm EKG). RESOLVED as patient reverted to NSR by 08/19/2024 am. A-fib RVR overnight 08/18 - 08/19 Rate [id number] fluctuating on morning assessment 08/19 Inadequate improvement with metoprolol IV x 3 doses overnight, subsequently started on amiodarone drip Converted to sinus 08/19/2024 in the morning Cardiology following. Did not recommend coagulation until at least evening of 08/19 - 08/20 due to hematoma risk. Continued on amiodarone 200 mg twice daily. Anticipate 6 weeks of treatment and then may discontinue medical therapy at that time. Appreciate recommendations and care. Hyponatremia Without evidence of volume overload Urine studies pending Trend daily Fluid restricted until urine studies available. With somewhat poor p.o. intake may be solute depletion #DMT2 - poorly controlled Home Meds: Ozempic (Sundays) - HELD BSG 283 on arrival with last documented A1c 10.1 02/2023 AM A1c Pharmacy glycemic management following, BSG control improving but still slightly above goal #HTN | HLD Continue statin Creatinine normalized, ARB continued SANDOVAL Resolved. Suspected due to poor flow with third-degree heart block/diminished CO #Hypothyroidism TSH mildly elevated 5.7, free T4 WNL Continue Synthroid - dose recently adjusted, will not make further dose adjustments at this time, continue outpatient follow up #Asthma - Continue home inhalers. Dispo: Downgraded to PCU post pacer placement DVT PPx: SCDs. Chemical prophylaxis held. CODE STATUS: FULL CODE. D/C back to home in the 08/21/2024 am after breakfast. Admission and Anticipated Discharge Date Admission Date: August 15, 2024 Subjective "I feel fine. No complaints." Review of Systems Constitutional: Patient denies antecedent/coincident fevers, chills, diaphoresis, shortness of breath, dyspnea on exertion, paroxysmal nocturnal dyspnea, orthopnea, platypnea, cough, wheeze, sore throat, hemoptysis, chest pains, palpitations, pleurisy, nausea, vomiting, diarrhea, abdominal pain, pelvic pain, hematemesis, hematochezia, melena, hematuria, dysuria, frequency, urgency, weight loss, weight gain, headaches, dizziness, lightheadedness, visual changes, hearing changes, weakness, falls, syncope, trauma, travel history, sick contacts, or food/drug ingestions novel or new. All other review of systems are reported as negative by the patient on 08/20/2024. Physical Exam Constitutional: General: Comfortable, coherent and cooperative. Wide awake and alert. Not confused, lethargic, or obtunded. Patient speaks in complete, fluent, and articulate sentences without pause, interruption, cough, or wheeze. HEENT: Normocephalic, atraumatic. No nystagmus, gaze paresis, anisocoria, miosis, mydriasis, hyphema, scleral injection, conjunctivitis, or pterygium. No otorrhea or rhinorrhea. No pharyngeal erythema, edema, or discharge. Neck: Supple, no stridor, bruit, goiter, or hepato-jugular reflux. Jugular venous pressure is estimated to be 3 cm above the sternal angle of Oskar, which in turn, is 5 cm above the level of the right atrium; with jugular venous pressure estimated to be 8 cm, then, there is no jugular venous distention on 08/20/2024. Lymphatics: No cervical (anterior/posterior), supraclavicular, infraclavicular, axillary, epitrochlear, or inguinal adenopathy. Chest: Symmetric rise and fall with respirations. Non-tender to palpation. Lungs: Clear to auscultation and percussion. Heart: Regular rate and rhythm. S1 and S2 noted. No S3 or S4 summation gallop. No tripartite friction rub. Grade II/ early systolic murmur @ LLSB without radiation to the carotids, axilla, or back, and which remains invariant in regards to the respiratory cycle. Abdomen: Soft, non-tender, non-distended. No rebound, guarding, Robbins's sign, or organomegaly. Bowel sounds auscultated in all 4 quadrants. Extremities: No clubbing, cyanosis, or edema. 2+ pedal pulses bilaterally. Skin: No decubitus ulcer, exanthem, or enanthem. Genito-urinary: No urethral discharge. No mckeon catheter. Patient utilizes urinal independently. Neurology: Alert and oriented in regards to person, place, time, and situation. DTR+ and symmetric. 5/5 motor strength in all 4 extremities, both proximally and distally. No pronator drift. No facial droop. No dysarthria. Psychiatry: No homicidal ideation. No suicidal ideation. No flat affect; smiles appropriately. Results & Data Results & Data Vital Signs (Past 12 Hours) Vital Signs Temp Pulse Pulse Resp BP BP Pulse Ox 08/20/24 19:34 37 C 91 H 16 155/84 H 97 08/20/24 16:13 36.8 C 87 18 165/87 H 95 08/20/24 16:10 94 H 08/20/24 13:07 08/20/24 11:17 36.5 C 89 18 135/85 96 08/20/24 10:36 125/76 95 08/20/24 08:18 36.7 C 80 19 161/83 H 96 08/20/24 08:15 08/20/24 08:00 81 Pulse Ox O2 Del Method O2 Flow Rate O2 Flow Rate 08/20/24 19:34 Room Air 08/20/24 16:13 Room Air 08/20/24 16:10 08/20/24 13:07 94 1 08/20/24 11:17 Room Air 08/20/24 10:36 Room Air 08/20/24 08:18 Room Air 08/20/24 08:15 Nasal Cannula 2 08/20/24 08:00 Laboratory Results Abnormal lab results 08/19/24 08/20/24 08/20/24 Range/Units 20:23 01:30 04:55 RBC 4.12 L (4.20-5.40) M/uL Hgb 11.9 L (12.0-16.0) g/dl Hct 34.0 L (37.0-47.0) % Sodium 134 L (136-145) mmol/L BUN/Creatinine Ratio 22.5 H (10-20) Glucose 122 H (70-99(Fasting)) mg/dl POC Glucose 186 H (70-99) mg/dl Urine Osmolality 123 L (500-800) mOsm/kg 08/20/24 08/20/24 08/20/24 Range/Units 08:01 11:53 16:45 RBC (4.20-5.40) M/uL Hgb (12.0-16.0) g/dl Hct (37.0-47.0) % Sodium (136-145) mmol/L BUN/Creatinine Ratio (10-20) Glucose (70-99(Fasting)) mg/dl POC Glucose 125 H 181 H 127 H (70-99) mg/dl Urine Osmolality (500-800) mOsm/kg PG Care Time/CCT Total # of Minutes Spent Total Time Spent with Patient: Total time spent is greater than 50% in coordination of care (as documented) at patient's floor/unit and/or counseling patient: Coding Level of Care Code 58535 SUB INP/OBS CARE 2/35MIN Diagnoses CHB (complete heart block) I44.2 Diabetes mellitus type 2, uncontrolled E11.65 Hypothyroidism E03.9 Essential hypertension I10
[2024-08-21 06:25] LABS: Basophils # (auto) 0.05 K/uL (0.00-0.20); Basophils % (auto) 0.9 %; Eosinophils # (auto) 0.31 K/uL (0.00-0.50); Eosinophils % (auto) 5.8 %; Hematocrit (blood only) 34.6 % (37.0-47.0); Hemoglobin 12.1 g/dl (12.0-16.0); Immature Granulocytes # (auto) 0.01 K/uL (0.01-0.20); Immature Granulocytes % (auto) 0.2 %; Lymphocytes # (auto) 1.86 K/uL (1.20-3.40); Lymphocytes % (auto) 34.5 %; Mean Corpuscular Hemoglobin 29.1 pg (25.0-34.0); Mean Corpuscular Volume 83.2 fL (80.0-100.0); Mean Platelet Volume 9.7 fL (9.4-12.4); Monocytes # (auto) 0.43 K/uL (0.11-0.59); Neutrophils # (auto) 2.73 K/uL (1.40-6.50); Neutrophils % (auto) 50.6 %; Platelet Count 229 K/uL (130-400); RDW Coefficient of Variation 12.6 % (11.5-14.5); RDW Standard Deviation 38.5 fL (36.4-46.3); Red Blood Count 4.16 M/uL (4.20-5.40); White Blood Count 5.39 K/ul (4.8-10.8)
[2024-08-21 08:41] VITALS: O2SAT 97
[2024-08-21 12:19] VITALS: BP 134/84; PULSE 84; RESP 18; TEMP 98.5
--- NOTE | 2024-08-21 13:01 | Discharge Summary ---
"Discharge Summary Date of Service August 21, 2024 Principal Dx & Hospital Course #1 = Principal Diagnosis (1) CHB (complete heart block): (2) Diabetes mellitus type 2, uncontrolled: (3) Hypothyroidism: (4) Essential hypertension: Plan 84 years old female with PMH of FULL CODE @ home, overweight with BMI 28.3 (height 170.2 cm; weight 82.1 kg), mild intermittent asthma, never intubated or mechanically ventilated, gout, HTN, HLD and diabetes who presented to [facility] on 08/15/2024 with an episode of near syncope. Patient was subsequently found to be in complete heart block. Portable CXR (08/15/2024, 10:27am) demonstrated mild pulmonary vascular congestion and possible LLL infiltrate. However, patient remained afebrile with no complaints of shortness of breath, cough, wheeze, or pleurisy, and had WBC elevation or supplemental oxygen requirement. Patient was subsequently admitted to the inpatient hospitalist service @ [facility] on 08/15/2024 with the following diagnosis: 1. Complete Heart Block. The following medical issues were addressed while the patient remained in [facility] from 08/15/2024 through 08/21/2024: #Complete Heart Block s/p pacemaker placement. RESOLVED. Patient's home-scheduled atenolol was held on admission, patient did not have improvement in her heart block despite holding patient's home-scheduled atenolol. Lyme test was negative, thereby excluding Lyme disease as a potential explanation/etiology for patient's complete heart block. TTE (08/15/2024, 2:14pm) with hyperdynamic EF 70%, no regional wall motion abnormalities. Normal RVSP. 08/17/2024 transvenous pacer was placed due to progressive pulmonary edema, hy poxia, and SANDOVAL suspected to be due to poor cardiac output. Following this she had rapid improvement in oxygen requirement to 2 L PPM insertion (08/18/2024, 9:42am, EPS Dr. Issac Solorio). Acute hypoxic respiratory failure. RESOLVED. Rapidly improved following PPM insertion (08/18/2024, 9:42am). Etiology of acute hypoxic respiratory failure was attributed to atelectasis. Repeat chest x-ray is with evidence of elevated hemidiaphragm. Continue incentive spirometry hourly, medical management. No evidence of pulm edema on repeat. Patient did have a pacemaker placed, and separately had 1 episode of nausea/vomiting although she does not think that she aspirated. Patient had 1 episode of fever greater than 38 degrees Celsius, and which was attributed to non-infectious atelectasis in the setting of hemidiaphragm elevation. New A-fib with RVR (as noted on 08/18/2024, 7:48pm EKG). RESOLVED as patient reverted to NSR by 08/19/2024 am. A-fib RVR overnight 08/18 - 08/19 Rate [id number] fluctuating on morning assessment 08/19 Inadequate improvement with metoprolol IV x 3 doses overnight, subsequently started on amiodarone drip Converted to sinus 08/19/2024 in the morning Cardiology following. Did not recommend coagulation until at least evening of 08/19 - 08/20 due to hematoma risk. Continued on amiodarone 200 mg twice daily. Anticipate 6 weeks of treatment and then may discontinue medical therapy at that time. Patient was discharged back to her home on 08/21/2024 with electronic prescriptions for the following two medications transmitted to her [id number] ([address] [place] [address]): a. Amiodarone 200mg PO bid, #60 tablets, no refills. b. Eliquis 5mg PO bid, #60 tablets, no refills. Chronic euvolemic hyponatremia with baseline Na range, 134-135 mmol/L (02/06/2020 - 02/23/2022). cf., admission Na 135 mmol/L (08/15/2024, 10:38am). cf, discharge Na 134 mmol/L (08/20/2024, 4:55am). 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 #DMT2 - poorly controlled with HbA1c 9.0% (08/16/2024, 6:23am). Home Meds: Ozempic (Sundays) - HELD BSG 283 on arrival with last documented A1c 10.1 02/2023 AM A1c Pharmacy glycemic management following, BSG control improving but still slightly above goal #HTN | HLD Continue statin Creatinine normalized, ARB continued SANDOVAL Resolved. Suspected due to poor flow with third-degree heart block/diminished CO #Hypothyroidism TSH mildly elevated 5.720 uIU/mL (08/15/2024, 10:38am), free T4 normal at 1.16 ng/dL (08/15/2024, 10:38am). Continue Synthroid - dose recently adjusted, will not make further dose adjustments at this time, continue outpatient follow up #Asthma - Continue home inhalers. Dispo: Downgraded to PCU post pacer placement DVT PPx: SCDs. Chemical prophylaxis held. CODE STATUS: FULL CODE. D/C back to home in the 08/21/2024 am after breakfast. Admission HPI Per Admitting Provider Erma is a 83F with a PMHx asthma, gout, HTN, HLD and diabetes who presents to the hospital with episode of near syncope. Woke up feeling normal, ate breakfast and then started feeling woozy. Did not pass out. Reports increase stress this week with recent power outage and selling her condo in [place]. denies cough, cold, congestion symptoms. Has seasonal allergies but they have not been bad. Only took her Synthroid this morning. Dose recently increased from 88 to 100 about a week ago. Diabetes - has had multiple changes by her prescribers recently, takes ozempic on Sundays morning. Discharge Exam Constitutional General: Comfortable, coherent, and cooperative. Wide awake and alert. Not confused, lethargic, or obtunded. Patient speaks in complete, flu ent, and articulate sentences without pause, interruption, cough, or wheeze. HEENT: Normocephalic, atraumatic. No nystagmus, gaze paresis, anisocoria, miosis, mydriasis, hyphema, scleral injection, conjunctivitis, or pterygium. No otorrhea or rhinorrhea. No pharyngeal erythema, edema, or discharge. Neck: Supple, no stridor, bruit, goiter, or hepato-jugular reflux. Jugular venous pressure is estimated to be 3 cm above the sternal angle of Oskar, which in turn, is 5 cm above the level of the right atrium; with jugular venous pressure estimated to be 8 cm, then, there is no jugular venous distention on 08/21/2024. Lymphatics: No cervical (anterior/posterior), supraclavicular, infraclavicular, axillary, epitrochlear, or inguinal adenopathy. Chest: Symmetric rise and fall with respirations. Non-tender to palpation. Lungs: Clear to auscultation and percussion. Heart: Regular rate and rhythm. S1 and S2 noted. No S3 or S4 summation gallop. No tripartite friction rub. Grade II/ early systolic murmur @ LLSB without radiation to the carotids, axilla, or back, and which remains invariant in regards to the respiratory cycle. Abdomen: Soft, non-tender, non-distended. No rebound, guarding, Robbins's sign, or organomegaly. Bowel sounds auscultated in all 4 quadrants. Extremities: No clubbing, cyanosis, or edema. 2+ pedal pulses bilaterally. Skin: No decubitus ulcer, exanthem, or enanthem. Genito-urinary: No urethral discharge. No mckeon catheter. Patient utilizes urinal independently. Neurology: Alert and oriented in regards to person, place, time, and situation. DTR+ and symmetric. 5/5 motor strength in all 4 extremities, both proximally and distally. No pronator drift. No facial droop. No dysarthria. Psychiatry: No homicidal ideation. No suicidal ideation. No flat affect; smiles appropriately. Discharge Plan Discharge Items Patient Disposition: Home - Self-Care Reason For Visit: COMPLETE HEART BLOCK Discharge Diagnosis: Third-degree heart block Condition on Discharge: Good Activity: Resume your previous activity Lifting: No more than 10 pounds Lifting Comment: No lifting left arm above shoulder behind neck for 6 weeks Bathing: Keep incision dry Bathing Comment: Keep wound dry and Steri-Strip intact until follow-up Weightbearing: Full weightbearing Non-emergency contact: Primary Care Provider and Car Conditioner Call non-emergency contact if: you have any medication questions Follow-up/Referrals: Kali Mendes MD [Physician] - 08/25/24 11:30 am (Cardiology follow up scheduled on 08/25/24 at 11:30 with Kali Mendes) Mary Alonzo DO [Primary Care Provider] - 08/26/24 11:20 am (Primary care hospital follow up scheduled on 08/26/24 at 11:[address] Tabor. Arrival time is 11:05) Diet: Heart Healthy Add Attending Provider Instructions: See your PCP Dr. Mary Alonzo and CARDS Dr. Kali Mendes, both within 5 days of hospital discharge. Pending Studies at Discharge: No Stand-Alone Forms: My [facility], Smoking Cessation Medications and DC Order Prescriptions: New Eliquis 5 mg tablet 5 mg PO BID Qty: 60 0RF amiodarone 200 mg tablet 200 mg PO BID 7 Days Qty: 60 0RF Continued simvastatin 20 mg tablet 20 mg PO QPM Qty: 90 3RF albuterol sulfate [ProAir HFA] 90 mcg/actuation HFA aerosol inhaler 2 puff inhalation Q4H PRN (Reason: shortness of breath or wheezing) Qty: 1 3RF montelukast 10 mg tablet 10 mg PO HS Qty: 100 3RF Rx Instructions: per pt she ran out and sees doctor Sunday. calcium citrate-vitamin D3 [Citracal + D Maximum] 315 mg- 250 unit tablet 1 tab PO QAM fluticasone propionate 50 mcg/actuation spray,suspension 1 spray intranasal QPM Patient Comments: 1-2 SPRAYS intranasal DAILY; Rx Instructions: 1-2 SPRAYS intranasal DAILY; multivitamin [Daily Multi-Vitamin] tablet 1 tab PO QPM glucosamine-chondroitin 250-200 mg tablet 2 tab PO QAM Patient Comments: 2 tab PO ONCE DAILY; Rx Instructions: 2 tab PO ONCE DAILY; carboxymethylcellulose sodium 0.25 % drops 2 drops OP DAILY PRN (Reason: Dry Eye(S)) colchicine 0.6 mg tablet 0.6 mg PO BID PRN (Reason: gout flare up) Qty: 90 0RF cyanocobalamin (vitamin B-12) [Vitamin B-12] 1,000 mcg Tablet 1,000 mcg PO QAM aspirin 81 mg Tablet,Delayed Release (Dr/Ec) 81 mg PO HS Glucagon Emergency Kit (human) 1 mg recon soln 1 mg subcut DIRECTED PRN (Reason: Hypoglycemia) Ozempic 2 mg/dose (8 mg/3 mL) pen injector 2 mg SUBCUT WK Rx Instructions: every sunday candesartan 16 mg tablet 16 mg PO DAILY Rx Instructions: TAKE 1 TABLET BY MOUTH EVERY DAY levothyroxine 150 mcg tablet 100 mcg PO DAILY budesonide-formoterol 80-4.5 mcg/actuation HFA aerosol inhaler 2 inh inhalation BID PRN (Reason: sob) Discontinued atenolol 50 mg tablet 50 mg PO QAM Qty: 90 3RF Discharge Orders: Discharge Order (Routine); Ordered 08/21/24 Ordered By: Robert Nieves/Other Patient Handouts: Managing Type 2 Diabetes, How to Check Your Blood Sugar Admission Data Admit Date/Time: 08/15/24 12:42 Attending Provider: Robert Mares Admit Provider: Osei Max Primary Care Provider: Mary Alonzo Other Providers: Osei Max; Kali Mendes; Norm Hargrove Other Interventions: Discharge Summary Assessment (RN) Last Done: 08/21/24 10:07 Hospital Stay Data Consultations 08/15/24 12:03 Consult Cardiology Routine ED Decision to Admit Stat 08/17/24 08:40 Consult Innersole Fitter Routine Procedures Performed Operation Date: 08/18/24 08:00 Actual Procedures p Pacer with A/V Leads (Dual) - Issac Solorio MD s Ins/RemTemporary Transvenous Pacer - Issac Solorio MD Diagnostic Imagining Performed 08/17/24 08:42 CL Cath Imgs for PACS use only Stat 08/18/24 06:45 EP Lab Images for PACS ONCE Pending Results Patient Have Any Pending Studies at Discharge: No Discharge Instructions Given to Patient (Per Discharging Provider) See your PCP Dr. Mary Alonzo and CARDS Dr. Kali Mendes, both within 5 days of hospital discharge. Total Time Total Time Spent Total Time Spent (In Minutes): 35 minutes. Of this time period, 19 minutes were spent in coordinating patient's discharge. Coding Level of Care Code 43388 INP/OBS DISCH >30 MIN Diagnoses CHB (complete heart block) I44.2 Diabetes mellitus type 2, uncontrolled E11.65 Hypothyroidism E03.9 Essential hypertension I10"
== END 2024-08-21 12:39 | disposition home or self-care (01) | DRG 242 ==
LOC: ED 10:15 → 2S 12:42 → SUATTDRO 12:42 → 2S 14:49 → 1E 08-17 09:23 → 4W 08-18 15:23